=== PATIENT | female | born 1960 | race Caucasian/White ===

== ENCOUNTER → 2016-06-22 | Outpatient (CLI) | payer BC ==
[~2016-06-22] MED LIST: /MOXI40TA PO; /PANT40TA PO; ADVA115INH INH; ALBU17IN INH; ALBUTEROL NEBULIZER; BENI20TA5 PO; BISAC5TA PO; CARD180C4 PO; CEFT500T PO; CHLOR PO; CITA20TA2 PO; DUONSOL IN; HYDROCODONE PO; LASI20TA PO; LIVA4TAB PO; METF500T PO; MYLASSUD PO; NICO21DI26 EXT; PRED10TA2 PO; REGL10TA6 PO; SING4GRA PO; SINGULAIR PO; TYLE325T5 PO; [UNRECOGNIZED DRUG - OTHER] PO
--- NOTE | 2016-06-22 22:53 | REP ---
CHEST, TWO VIEWS: HISTORY: Wheezing. COMPARISON: 06/25/2014 Peribronchial cuffing is present. The heart is normal in size. The pulmonary vasculature is normal in appearance. The bony structure is intact. IMPRESSION: Findings consistent with asthma or bronchitis. Signed by Erick Wilson MD 06/23/2016 08:21 A
== END ==
LOC: M LRY 18:33
PROVIDERS: ATTEND Physician Assistant
DX: R06.2 Wheezing (principal)

== ENCOUNTER → 2016-07-19 | Outpatient (REF) | payer BC | LOC: M SFHCPLAZ 13:08 | PROVIDERS: ATTEND Nurse Practitioner Family | DX: L03.315 Cellulitis of perineum (principal) ==

== ENCOUNTER 2016-09-22 15:05 | Observation (INO) | payer BC ==
[~2016-09-22] VITALS: Ht 147.3 cm; Wt 77.9 kg
--- NOTE | 2016-09-22 16:00 | REP ---
CT Head without contrast HISTORY: Infarction COMPARISON: 06/26/2012 There is no intraparenchymal hemorrhage, acute infarct, mass or midline shift. The ventricular system is normal in appearance. There is no extra cerebral collection. There is no fracture. The visualized sinuses are clear. IMPRESSION: There is no intracranial lesion. Signed by Erick Wilson MD 09/22/2016 03:52 P
--- NOTE | 2016-09-22 16:09 | REP ---
PORTABLE CHEST: AP portable view of the chest is performed. There is no acute infiltrate or pulmonary edema. The cardiomediastinal silhouette is normal. There are degenerative changes of the spine. IMPRESSION: No acute pulmonary disease. Signed by Brett Osborne MD 09/22/2016 05:42 P
[2016-09-22 16:26] LABS: BASO % 0.5 % (0.0-1.0); EOS # 0.2 K/mm3 (0.0-0.50); LARGE UNSTAINED CELL # 0.1 K/mm3 (0.0-0.4); LARGE UNSTAINED CELL % 1.5 % (0.0-4.0); LYMPH # 2.5 K/mm3 (1.5-4.5); LYMPH % 29.4 % (24.0-44.0); MEAN CORPUSCULAR HEMOGLOBIN 30.2 pg (27.0-33.0); MEAN CORPUSCULAR HGB CONC 33.7 g/dl (32.0-36.5); MEAN CORPUSCULAR VOLUME 89.8 fl (80.0-96.0); MONO # 0.5 K/mm3 (0.0-0.8); MONO % 5.7 % (0.0-5.0); NEUTROPHILS # 4.8 K/mm3 (1.8-7.7); PLATELET COUNT, AUTOMATED 296 k/mm3 (150-450); RED CELL DISTRIBUTION WIDTH 14.1 % (11.5-14.5); WHITE BLOOD COUNT 8.1 K/mm3 (4.0-10.0)
[2016-09-22 16:33] LABS: INR 0.95
[2016-09-22] MEDS ORDERED: ACETAMINOPHEN TAB 650MG DOSE (2X325MG) PO ONE (16:45)
[2016-09-22 16:47] LABS: ANION GAP 4 MEQ/L (8-16); BLOOD UREA NITROGEN 9 MG/DL (7-18); CALCIUM LEVEL 8.5 MG/DL (8.5-10.1); CARBON DIOXIDE LEVEL 29 MEQ/L (21-32); CHLORIDE LEVEL 107 MEQ/L (98-107); CREATININE FOR GFR 0.89 MG/DL (0.55-1.02); GLOMERULAR FILTRATION RATE > 60.0 (>51); GLUCOSE, FASTING 77 MG/DL (70-105); MAGNESIUM LEVEL 2.1 MG/DL (1.8-2.4); POTASSIUM SERUM 3.4 MEQ/L (3.5-5.1); SODIUM LEVEL 140 MEQ/L (136-145)
[2016-09-22] MEDS ORDERED: METOPROLOL 5 MG/5 ML VIAL IV STA (17:26)
[2016-09-22] MEDS ORDERED: ASPIRIN 325 MG TAB PO ONE (17:30)
[2016-09-22] MEDS ORDERED: ACETAMINOPHEN TAB 650MG DOSE (2X325MG) PO PRN (17:30)
[2016-09-22] MEDS ORDERED: POTASSIUM CHLORIDE 10 MEQ SR TABLET PO ONE (17:30)
[2016-09-22] MEDS ORDERED: hydrALAZINE INJ 20 MG/ML VIAL IV ONE (17:30)
[2016-09-22] MEDS ORDERED: ONDANSETRON 4MG/2ML VIAL (J2405) IV PRN (17:30)
[2016-09-22] MEDS ORDERED: OLMESARTAN MEDOXOMIL 20 MG TAB (BENICAR) PO ONE (17:30)
[2016-09-22] MEDS ORDERED: SIMVASTATIN 40 MG TAB PO ONE (17:30)
[2016-09-22] MEDS ORDERED: hydrALAZINE INJ 20 MG/ML VIAL IV SCH (17:45)
[2016-09-22] MEDS ORDERED: SUCR1SS PO (18:42)
[2016-09-22] MEDS ORDERED: LASI20TA PO (18:42)
[2016-09-22] MEDS ORDERED: NEXI40CA PO (18:42)
[2016-09-22] MEDS ORDERED: BENI40TA3 PO (18:42)
[2016-09-22] MEDS ORDERED: CITA40TA4 PO (18:42)
[2016-09-22] MEDS ORDERED: FLON1SPR (18:42)
[2016-09-22] MEDS ORDERED: SIMV20TA2 PO (18:42)
[2016-09-22] MEDS ORDERED: SING10TA32 PO (18:42)
[2016-09-22] MEDS ORDERED: SULF500T2 PO (18:42)
[2016-09-22] MEDS ORDERED: ALBU17IN INH (18:42)
[2016-09-22] MEDS ORDERED: HYDR12CA PO (18:42)
[2016-09-22 20:05] VITALS: BP 160/80
[2016-09-22] MEDS: LABETALOL 100 MG TAB PO SCH (20:31)
[2016-09-22] MEDS ORDERED: IPRATROPIUM 0.5MG/ALBUTEROL 2.5MG INH SOL UD 3ML (DUONEB)(J7620) NEB PRN (21:00)
[2016-09-22] MEDS ORDERED: FUROSEMIDE 20 MG TAB PO PRN (21:00)
[2016-09-22] MEDS ORDERED: NICOTINE POLACRILEX 2 MG GUM PO PRN (21:00)
--- NOTE | 2016-09-22 21:50 | ECGEPIP ---
Stationary ECG Study [facility] [place] - ED Test Date: 2016-09-22 Pat Name: DELMA DAWN Department: Room: - Gender: F Slip Laster: rn : 1960 Requested By: CHAY Perez Order Number: [id number] Reading MD: Roseanne Benavides Measurements Intervals Saline Rate: 82 P: 32 PA: 191 QRS: -83 QRSD: 102 T: 32 QT: 374 QTc: 438 Interpretive Statements SINUS RHYTHM LEFT ANTERIOR FASCICULAR BLOCK POSSIBLE ANTERIOR MYOCARDIAL INFARCTION, OF INDETERMINATE AGE POSSIBLE INFERIOR MYOCARDIAL INFARCTION, OF INDETERMINATE AGE Electronically Signed On 09-22-2016 21:49:50 EDT by Roseanne Benavides
[2016-09-22 22:32] VITALS: BP 180/87
[2016-09-22] MEDS ORDERED: amLODIPine 5 MG TAB PO ONE (23:00)
[2016-09-22 23:20] VITALS: BP 162/80
[2016-09-23 02:46] VITALS: BP 130/70
[2016-09-23 05:15] VITALS: BP 142/82
[2016-09-23 05:39] LABS: BASO % 0.4 % (0.0-1.0); EOS # 0.3 K/mm3 (0.0-0.50); EOS % 3.3 % (0.0-3.0); LARGE UNSTAINED CELL # 0.1 K/mm3 (0.0-0.4); LARGE UNSTAINED CELL % 1.3 % (0.0-4.0); LYMPH # 3.2 K/mm3 (1.5-4.5); LYMPH % 33.7 % (24.0-44.0); MEAN CORPUSCULAR HEMOGLOBIN 30.5 pg (27.0-33.0); MEAN CORPUSCULAR HGB CONC 34.2 g/dl (32.0-36.5); MEAN CORPUSCULAR VOLUME 89.3 fl (80.0-96.0); MONO # 0.8 K/mm3 (0.0-0.8); MONO % 8.9 % (0.0-5.0); NEUTROPHILS # 4.8 K/mm3 (1.8-7.7); NEUTROPHILS % 52.2 % (36.0-66.0); PLATELET COUNT, AUTOMATED 279 k/mm3 (150-450); RED CELL DISTRIBUTION WIDTH 14.2 % (11.5-14.5); WHITE BLOOD COUNT 9.1 K/mm3 (4.0-10.0)
[2016-09-23 06:09] LABS: ANION GAP 8 MEQ/L (8-16); BLOOD UREA NITROGEN 11 MG/DL (7-18); CALCIUM LEVEL 8.2 MG/DL (8.5-10.1); CARBON DIOXIDE LEVEL 25 MEQ/L (21-32); CHLORIDE LEVEL 108 MEQ/L (98-107); CREATININE FOR GFR 0.89 MG/DL (0.55-1.02); GLOMERULAR FILTRATION RATE > 60.0 (>51); GLUCOSE, FASTING 104 MG/DL (70-105); POTASSIUM SERUM 3.8 MEQ/L (3.5-5.1); SODIUM LEVEL 141 MEQ/L (136-145)
--- NOTE | 2016-09-23 07:43 | HPE ---
DATE OF ADMISSION: 09/22/2016 INPATIENT HOSPITAL ATTENDING: Dr. Esdras Abbott. PRIMARY CARE PHYSICIAN: Dr. Henry Ko CHIEF COMPLAINT: Right sided facial tingling. HISTORY OF PRESENT ILLNESS: 56-year-old female with history of hypertension, noncompliant with salt intake, hypercholesterolemia, asthma, presents to the emergency room with two day history of right facial tingling noted last night at work at 9:30 p.m. The patient has persistent facial tingling and slight numbness as she had gone to bed. It improved slightly when she woke up this morning. She noted her blood pressure was elevated at 180/101 at home. She called her physician who had recently increased her Benicar from 20 daily to 40 dad. The patient denied any chest pain, pressure or tightness, headache or changes in vision. She had an episode of nausea without vomiting, otherwise no fever, chills or shortness of breath. Due to the persistent facial tingling she presented to the emergency room for further evaluation. She denied any swallowing difficulties, dysphagia, odynophagia, facial asymmetry, choking spells at home. She had not taken any medications for this and no prior history of neurologic disorder. She also complains of diarrhea for the past ten days, four times daily , loose, watery stools. No blood, but with a significant amount of mucus. No weight changes. She had a prior colonoscopy less than five years ago in [place]. She was found to have diverticulosis. She had a prior history of Clostridium difficile (C. difficile) about four years ago. She currently denies any bright blood per rectum, melena, no upper or lower extremity weakness aside from numbness of the right face. The patient has not experienced any other neurological changes. She currently denies any chest pain or pressure, dyspnea or lightheadedness. She is ambulating well without much difficulty. In the emergency room (ER) CT of the head was unremarkable and shows no acute infarct. No intracranial lesion. Laboratory data was only significant for slightly low potassium of 3.4. Blood pressure was elevated at 195/93 in the ER. The hospitalist service was called for admission for possible transient ischemic attack (TIA) and hypertensive urgency. PAST MEDICAL HISTORY: 1. Hypertension. 2. Hypercholesterolemia. 3. Chronic pulmonary obstructive disease (COPD). 4. Asthma. 5. Diverticular disease. 6. Chronic diarrhea. 7. Osteoarthritis. 8. History of angina, stress test Dr. Layton 2014. 9. Depression. 10. Microscopic colitis. 11. Anxiety/depression. Used to be treated at behavioral health clinic. 12. Thoracic back pain. 13. Reflux. PAST SURGICAL HISTORY: 1. Ovarian cystectomy with appendectomy 02/23/1978. 2. Thoracic discectomy 08/17/1989. 3. Cervical laminectomy 08/17/2004. 4. (C) section 08/17/1988. ALLERGIES: CLINDAMYCIN, CYCLOBENZAPRINE, ERYTHROMYCIN, SERTRALINE, MELOXICAM. HOME MEDICATIONS: - Benicar 40 mg daily - Reglan 10 mg nightly - pitavastatin 4 mg daily - Singulair 10 daily - albuterol two puffs every four as needed - citalopram 20 daily - DuoNeb every four as needed - Protonix 40 daily - Tylenol 650 every four has needed SOCIAL HISTORY: She smokes a pack a day for the past 40 years. She works at [employer]. No alcohol use, no health care proxy. FULL CODE. FAMILY HISTORY: Mother age 72, coronary artery disease (CAD), myocardial infarction (CT) times three, esophageal cancer. Father is still alive at 77 and with hypertension late onset, type 2 diabetes. Father living with asthma, hypertension, diabetes, lymphedema, history of prostate cancer. Mother age 72, in 2012 with rheumatoid arthritis, esophageal cancer (CA), coronary artery disease, hypertension, history of myocardial infarction (CT). One brother and one sister and one child. REVIEW OF SYSTEMS: 12-point system negative aside from positive findings in history of presenting illness, vertical, horizontal. Some dysmetria on [id number] testing on the right. No pronator drift. Motor function is 5/5 times four extremities. The patient has decreased sensation on the right face. Cloth Classer is normal 5/5. Deep tendon reflexes (DTRs) are intact, 2+ brachial and radial. Ankle reflex negative Babinski bilaterally. PHYSICAL EXAMINATION: HEENT: Tongue is midline, no jugular venous distention, thyromegaly or cervical lymphadenopathy. HEART: S1, S2. Sinus rhythm. No murmurs, rubs, gallops. LUNGS: Clear to auscultation, no wheezing, rales or rhonchi. ABDOMEN: Soft, nontender, nondistended, positive bowel sounds. EXTREMITIES: No pitting edema. EKG shows sinus rhythm, ventricular rate of 82, left anterior fascicular block. Possible inferior CT of indeterminate age, abnormal EKG. LABORATORY DATA: White count 8.1, hemoglobin 14, hematocrit 41, platelet count 296. Sodium 140, potassium 3.4, chloride 107, bicarbonate 29, BUN 9, creatinine 0.89, glucose 77, calcium 8.5, magnesium 2.1, total CK 144, MB fraction 1.3, troponin less than 0.02, TSH 2.03. CT of the head, no acute intracranial lesion. Chest x-ray, no acute cardiopulmonary disease. MR of the brain is pending. ASSESSMENT AND PLAN: This is a 56-year-old female, active smoking, with over a 40-pack year history of smoking, hypertension, hyperlipidemia, depression, asthma, chronic pulmonary obstructive disease (COPD) presenting to the emergency room with complaints of right facial tingling. The patient will be admitted for observation and assigned to Dr. Esdras Abbott with the following issues: 1. Hypertensive urgency. The patient will be given Labetalol 100 twice a day, resumed on her home dose of Benicar 40 daily for better blood pressure control. 2. Right facial tingling. Possible transient ischemic attack (TIA). Rule out cerebral vascular accident (CVA). Neurologic checks every four hours, telemetry monitoring. Rule out arrhythmia. MRI of the brain, if positive for CVA will consult neurology and obtain an echocardiogram, Dopplers of the neck to rule out carotid stenosis. Encourage tobacco cessation. Start on aspirin 81 daily, tobacco cessation counseling. Zocor, check lipid profile in the morning. 3. Active smoking 40 pack year history with COPD. Nebulizer treatments as needed. 4. Tobacco cessation counseling. Nicotine patch. 5. Depression. Continue Celexa. 6. History of asthma. Continue Singulair and nebulizer treatments. 7. Deep venous thrombosis (DVT) prophylaxis. Compression stockings. Edited: 09/23/2016 0742 louie DAVIDSON
[2016-09-23 08:00] VITALS: BP 158/79
--- NOTE | 2016-09-23 08:43 | REP ---
MR BRAIN WITHOUT CONTRAST: HISTORY: Right facial paresthesia. COMPARISON: 02/09/2008 Scattered punctate areas of increased signal intensity on T2-weighted images are present in the periventricular and subcortical white matter. This represents small vessel ischemic disease. There is no intraparenchymal hemorrhage, infarct, mass, or midline shift. The ventricular system is normal in appearance. There is no extracerebral collection. Minimal mucosal thickening is present in the right ethmoid sinus. IMPRESSION: Minimal small vessel ischemic disease. Signed by Erick Wilson MD 09/23/2016 08:47 A
[2016-09-23] MEDS ORDERED: PANTOPRAZOLE 40MG TAB (PROTONIX) PO SCH (09:00)
[2016-09-23] MEDS ORDERED: ASPIRIN 81 MG ENTERIC TAB PO SCH (09:00)
[2016-09-23] MEDS ORDERED: NICOTINE 7 MG/24 HR TRANSDERMAL TD SCH (09:00)
[2016-09-23] MEDS ORDERED: OLMESARTAN MEDOXOMIL 20 MG TAB (BENICAR) PO SCH (09:00)
[2016-09-23] MEDS ORDERED: CitaloPRAM (CeleXA) 20 MG TAB PO SCH (09:00)
[2016-09-23] MEDS ORDERED: ENOXAPARIN 40 MG/0.4 ML SYRINGE (J1650) SC SCH (09:00)
[2016-09-23 09:39] VITALS: BP 158/79
[2016-09-23] MEDS: LABETALOL 100 MG TAB PO SCH (09:39)
[2016-09-23] MEDS ORDERED: ASPI81TAEC PO (09:40)
[2016-09-23] MEDS ORDERED: LABE10TAB PO (09:40)
[2016-09-23] MEDS ORDERED: NICO7PA TD (09:40)
[2016-09-23] MEDS ORDERED: HYDR25TAB PO (09:41)
--- NOTE | 2016-09-23 10:34 | DSES ---
DATE OF ADMISSION: 09/23/2016 DATE OF DISCHARGE: 09/23/2016 DISCHARGE DIAGNOSIS: Transient ischemic attack (TIA). SECONDARY DIAGNOSES: Hypertensive urgency. Chronic obstructive pulmonary disease (COPD). Tobacco abuse. Depression. Anxiety. Gastroesophageal reflux disease (GERD). HOSPITAL COURSE: The patient is a 56-year-old female who presented to the hospital with elevated blood pressure and associated right sided paresthesias. She was admitted to the progressive care unit with concern for potential CVA. An MRI was completed which did not reveal any acute CVA. Her blood pressure was controlled with p.o. medications and her symptoms did resolve at the same time. At the present time, the patient is completely asymptomatic. She admitted to having stressors increased in her life lately. She has also admitted that she has been smoking more than usual. She tells me that she is compliant with her medications, but noncompliant with a low salt diet, and that she takes as needed Lasix for lower extremity edema felt to be related to her high salt diet. At the present time, the patient tells me she feels well, has no complaints and would like to go home. She has no paresthesias, weakness, numbness or tingling. No chest pain, shortness of breath, fevers, chills, nausea, vomiting. At the present time she is actually denying diarrhea. OBJECTIVE: VITAL SIGNS: Temperature 97.4, pulse 66, respiratory rate 18, blood pressure 158/79, oxygen saturation 99% on room air. GENERAL: She is a pleasant female lying in bed comfortably. She is in no distress. HEENT: Face is symmetric. Cranial nerves II through XII are grossly intact. She has moist mucous membranes. No elevation of CVP. CARDIOVASCULAR EXAM: S1 and S2 regular. RESPIRATORY EXAM: Clear. ABDOMINAL EXAM: Obese. Bowel sounds present. The abdomen is soft. EXTREMITIES: No clubbing, cyanosis, or edema. NEUROLOGICAL EXAM: Sensory and motor intact. Gait is intact. LABORATORY STUDIES: WBC 9.1, hemoglobin 13.4, platelet count is 279. Chemistry panel: Sodium 141, potassium 3.8, chloride 108, bicarb 25, BUN 11, creatinine 0.8. Three sets of cardiac enzymes are negative. TSH is within normal limits. INR is 0.9. MRI of the brain revealed minimal small vessel ischemic disease. She had a chest x-ray that revealed no acute cardiopulmonary process. She had a CT scan of the head which revealed no intracranial lesion. ASSESSMENT/PLAN: This is a 56-year-old female with hypertensive urgency. PROBLEMS: 1. Hypertensive urgency and possible TIA. The patient's blood pressure was significantly elevated at the time of her presentation with her systolic greater than 190. At the time, she had noticed that she had right sided facial numbness and tingling, which coincided with her elevated blood pressure. In the emergency room she was given her Benicar as well as labetalol was added to her regimen, 100 mg twice a day. This did bring her blood pressure down quite well and she did have complete resolution of her problems. At this time, the patient is being discharged on Benicar 40 mg by mouth daily. Her home hydrochlorothiazide has been titrated from 12.5 mg to 25 mg. 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 I have also advised her to start an exercise regimen. She will be provided with a nicotine patch. I have provided her a prescription for labetalol and should her blood pressure remain elevated with systolic greater than 150, she should begin taking this medication as well and monitor her blood pressure at least twice a day and keeping her readings. She is advised to followup with her primary care physician within seven days. If her symptoms recur in the setting where her blood pressure is not elevated, could consider an outpatient neurology referral. The patient was to continue taking her Zocor. She was also to take a baby aspirin daily. 2. COPD. Continue with inhalers. Tobacco cessation advised. 3. Tobacco use. The patient will be discharged with a nicotine patches. 4. Depression. Continue with Celexa. 5. High salt diet. The patient has been advised to have a 2 gram sodium diet and that having a high salt diet will likely increase her blood pressure significantly. She normally takes Lasix 20 mg as needed leg swelling for this. DISPOSITION: The patient is being discharged home. She is at her functional baseline in terms of activities of daily living. She has been cleared by physical therapy. She is to followup with her primary care physician in seven days. Her activity is as prior to admission. Her diet is 2 gram sodium. She is to return to the ER if her symptoms worsen. She is to use labetalol only if her home blood pressure readings are greater than a systolic of 150. She is to check her blood pressure, and also, if her symptoms were to occur regularly with her home monitor. DISCHARGE MEDICATIONS: - aspirin 81 mg daily - hydrochlorothiazide 25 mg daily - labetalol 100 mg by mouth twice a day as directed - nicotine one patch transdermally daily - Ventolin HFA two puffs four times a day as needed for shortness of breath - citalopram 40 mg daily - Nexium 40 mg daily - Flonase two sprays nasally as needed for allergies - Lasix 20 mg as needed for leg swelling - Singulair 10 mg at bedtime - olmesartan 40 mg daily - simvastatin 20 mg at bedtime - Carafate 10 mL by mouth twice a day - sulfasalazine 500 mg every 6 hours Greater than 30 minutes spent organizing disposition.
[2016-09-23] MEDS ORDERED: SIMVASTATIN 40 MG TAB PO SCH (21:00)
[2016-09-23] MEDS ORDERED: SIMVASTATIN 20 MG TAB PO SCH (21:00)
[2016-09-23] MEDS ORDERED: MONTELUKAST 10 MG TAB PO SCH (21:00)
== END 2016-09-23 10:55 | disposition home or self-care (01) ==
LOC: M ED 16:19 → M ED INP 17:28 → M PCU 20:03 → OBSVTOIN 09-23 08:21 → INTOOBSV 09-23 08:21
PROVIDERS: ADMIT General Practice; ATTEND Internal Medicine
DX: G45.9 Transient cerebral ischemic attack, unspecified (principal); I16.0 Hypertensive urgency; J44.9 Chronic obstructive pulmonary disease, unspecified; F17.210 Nicotine dependence, cigarettes, uncomplicated; F32.9 Major depressive disorder, single episode, unspecified; F41.9 Anxiety disorder, unspecified; K21.9 Gastro-esophageal reflux disease without esophagitis; Z79.82 Long term (current) use of aspirin; Z79.899 Other long term (current) drug therapy; E78.00 Pure hypercholesterolemia, unspecified; Z88.1 Allergy status to other antibiotic agents; Z88.8 Allergy status to other drugs, medicaments and biological substances

== ENCOUNTER 2016-11-25 18:09 | Emergency (ER) | payer OTHER, BC ==
[~2016-11-25] VITALS: Ht 147.3 cm; Wt 78.5 kg
[~2016-11-25 18:09] MED LIST changes: +ASPI81TAEC PO; +BENI40TA3 PO; +CITA40TA4 PO; +FLON1SPR; +HYDR12CA PO; +HYDR25TAB PO; +LABE10TAB PO; +NEXI40CA PO; +NICO7PA TD; +SIMV20TA2 PO; +SING10TA32 PO; +SUCR1SS PO; +SULF500T2 PO
[2016-11-25] MEDS ORDERED: BENI40TA3 PO (18:20)
[2016-11-25] MEDS ORDERED: BREO1INH3 (18:20)
[2016-11-25 20:35] VITALS: BP 168/83
== END 2016-11-25 20:37 | disposition home or self-care (01) ==
LOC: M ED 19:10
DX: S60.511A Abrasion of right hand, initial encounter (principal); S60.512A Abrasion of left hand, initial encounter; S00.83XA Contusion of other part of head, initial encounter; W18.09XA Striking against other object with subsequent fall, initial encounter; Y92.238 Other place in hospital as the place of occurrence of the external cause; Y93.01 Activity, walking, marching and hiking; Y99.0 Civilian activity done for income or pay; I10 Essential (primary) hypertension; E78.00 Pure hypercholesterolemia, unspecified; F32.9 Major depressive disorder, single episode, unspecified; K57.90 Diverticulosis of intestine, part unspecified, without perforation or abscess without bleeding; F17.200 Nicotine dependence, unspecified, uncomplicated; Z79.82 Long term (current) use of aspirin; Z79.899 Other long term (current) drug therapy; Z88.1 Allergy status to other antibiotic agents; Z88.8 Allergy status to other drugs, medicaments and biological substances

== ENCOUNTER → 2016-12-01 | Outpatient (CLI) | payer OTHER, BC ==
[~2016-12-01] MED LIST changes: +BREO1INH3
--- NOTE | 2016-12-02 04:50 | REP ---
Clinical: Pain. Technique: AP, lateral, bilateral oblique views of the right foot. Findings: Moderate age-related degenerative changes primarily involving the metatarsophalangeal and interphalangeal joints noted including subchondral sclerosis, joint space narrowing, and scattered marginal spurring. No acute fracture or dislocation. Surrounding soft tissues unremarkable. Impression: Moderate arthritic degenerative changes. Signed by Andrew Leon MD 12/02/2016 04:41 A
== END ==
LOC: M LRY 14:16
PROVIDERS: ATTEND Internal Medicine
DX: M19.071 Primary osteoarthritis, right ankle and foot (principal)

== ENCOUNTER → 2017-02-08 | Outpatient (REF) | payer BC ==
[~2017-02-08] MED LIST changes: +BENI40TA26 PO; -BENI40TA3 PO
[2017-02-08 11:54] LABS: ALBUMIN 3.9 GM/DL (3.2-5.2); ALBUMIN/GLOBULIN RATIO 1.18 (1.00-1.93); ALKALINE PHOSPHATASE 101 U/L (45-117); ALT/SGPT 21 U/L (12-78); ANION GAP 6 MEQ/L (8-16); AST/SGOT 13 U/L (15-37); BILIRUBIN,TOTAL 0.4 MG/DL (0.2-1.0); BLOOD UREA NITROGEN 17 MG/DL (7-18); CALCIUM LEVEL 9.1 MG/DL (8.5-10.1); CARBON DIOXIDE LEVEL 29 MEQ/L (21-32); CHLORIDE LEVEL 103 MEQ/L (98-107); CHOLESTEROL LEVEL 243 MG/DL (<200); GLOMERULAR FILTRATION RATE > 60.0 (>51); GLUCOSE, FASTING 119 MG/DL (70-105); MAGNESIUM LEVEL 2.2 MG/DL (1.8-2.4); POTASSIUM SERUM 4.8 MEQ/L (3.5-5.1); SODIUM LEVEL 138 MEQ/L (136-145); TOTAL PROTEIN 7.2 GM/DL (6.4-8.2); TRIGLYCERIDES LEVEL 99 MG/DL (<150)
== END ==
LOC: M SFHCPLAZ 09:45
PROVIDERS: ATTEND Internal Medicine
DX: I10 Essential (primary) hypertension (principal); E78.00 Pure hypercholesterolemia, unspecified

== ENCOUNTER → 2017-02-08 | Outpatient (CLI) | payer BC ==
--- NOTE | 2017-02-08 14:21 | REP ---
LUMBAR SPINE SERIES: FIVE VIEWS. COMPARISON STUDY: 10/10/2008 FINDINGS: Lumbar vertebral body heights are preserved, and alignment is normal. There is degenerative disc disease diffusely. This is more pronounced than on the 2008 prior study. Disc space narrowing is most pronounced at L3-4 and L4-5 where there is spurring and sclerosis. There is osteoarthritic facet hypertrophy and sclerosis bilaterally at L4-5 and L5-S1 as well. Pedicles and posterior elements are intact. There is no evidence of spondylolysis or spondylolisthesis. Vascular calcification is noted. Psoas margins are symmetric. Sacrum and SI joints are intact. IMPRESSION: Degenerative disc and osteoarthritic facet changes most pronounced at L4-5, L5-S1, and L3-4. No fracture or acute abnormality is seen. Signed by Teofilo Villafana MD 02/08/2017 02:59 P
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
== END ==
LOC: M SMT 13:02
PROVIDERS: ATTEND Nurse Practitioner Adult Health
DX: M54.5 Low back pain (principal); M50.31 Other cervical disc degeneration, high cervical region; M50.321 Other cervical disc degeneration at C4-C5 level; M50.323 Other cervical disc degeneration at C6-C7 level; M12.88 Other specific arthropathies, not elsewhere classified, other specified site; Z98.1 Arthrodesis status

== ENCOUNTER → 2017-02-25 | Outpatient (CLI) | payer BC ==
--- NOTE | 2017-02-25 11:12 | REP ---
MR LUMBAR SPINE WITHOUT CONTRAST: HISTORY: Back pain. COMPARISON: 01/07/2012 Decreased signal intensity on T2-weighted images is present in the lumbar intervertebral discs. The disc are decreased in height. These findings are consistent with disc degeneration. There is no disc bulge or herniation at the L1-2 and L2-3 levels. The nerves exit the neural foramina without compression. A diffuse disc bulge and small left paracentral and intraforaminal disc protrusion are present at the L3-4 level. There is hypertrophy of the ligamentum flava and posterior articulating facets. These findings produce minimal central canal stenosis. There is compression of the right L3 nerve in the neural foramen. The left L3 nerves exits the neural foramen without compression. A diffuse disc bulge is present at the L4-5 level. There is hypertrophy of the ligamenta flava and posterior articulating facets. These findings produce mild central canal stenosis. The L4 nerves exit the neural foramina without compression. A diffuse disc bulge is present at the L5-S1 level. There is minimal compression of the thecal sac. There is hypertrophy of the posterior articulating facets. The L5 nerves exit the neural foramina without compression. A syrinx is present in the lower thoracic spinal cord. This appears unchanged compared to the previous study. The conus medullaris terminates at the level of the L2-3 intervertebral disc. Normal signal intensity is present in the lumbar vetebral bodies. IMPRESSION: 1. Minimal central canal stenosis at the L3-4 level secondary to disc bulge, disc protrusion, ligamentous and facet hypertrophy. 2. Mild central canal stenosis at the L4-5 level secondary to disc bulge, ligamentous and facet hypertrophy.3. Diffuse disc bulge at the L5 S1 level with minimal thecal sac compression. Signed by Erick Wilson MD 02/25/2017 08:54 A
== END ==
LOC: M RAD 07:20
PROVIDERS: ATTEND Nurse Practitioner Adult Health
DX: M54.5 Low back pain (principal)

== ENCOUNTER 2017-03-16 14:00 | Outpatient (RCR) | payer BC | END 2017-03-19 | LOC: M PT 14:00 | PROVIDERS: ATTEND Orthopaedic Surgery | DX: Z51.89 Encounter for other specified aftercare (principal); M54.5 Low back pain ==

== ENCOUNTER → 2017-07-11 | Outpatient (REF) | payer BC | LOC: M SFHCPLAZ 17:22 | DX: R35.0 Frequency of micturition (principal) ==

== ENCOUNTER → 2017-07-11 | Outpatient (REF) | payer BC ==
[2017-07-11 19:29] LABS: ESTIMATED AVERAGE GLUCOSE 143 MG/DL (60-110); HEMOGLOBIN A1c 6.6 %
[2017-07-11 20:04] LABS: ALBUMIN 4.4 GM/DL (3.2-5.2); ALBUMIN/GLOBULIN RATIO 1.33 (1.00-1.93); ALKALINE PHOSPHATASE 110 U/L (45-117); ALT/SGPT 23 U/L (12-78); ANION GAP 6 MEQ/L (8-16); AST/SGOT 15 U/L (7-37); BILIRUBIN,TOTAL 0.3 MG/DL (0.2-1.0); BLOOD UREA NITROGEN 14 MG/DL (7-18); CALCIUM LEVEL 9.5 MG/DL (8.5-10.1); CARBON DIOXIDE LEVEL 31 MEQ/L (21-32); CHLORIDE LEVEL 101 MEQ/L (98-107); CPK CREATINE PHOSPHOKINASE 159 U/L (26-192); CREATININE FOR GFR 1.01 MG/DL (0.55-1.02); GLOMERULAR FILTRATION RATE > 60.0 (>51); GLUCOSE, FASTING 87 MG/DL (70-100); POTASSIUM SERUM 4.4 MEQ/L (3.5-5.1); SODIUM LEVEL 138 MEQ/L (136-145); TOTAL PROTEIN 7.7 GM/DL (6.4-8.2)
== END ==
LOC: M SFHCPLAZ 14:55
DX: R73.9 Hyperglycemia, unspecified (principal); M79.1 Myalgia

== ENCOUNTER → 2017-07-29 | Outpatient (REF) | payer BC ==
[2017-07-29 22:11] LABS: INFLUENZA A AMPLIFICATION NEGATIVE (NEGATIVE); INFLUENZA B AMPLIFICATION NEGATIVE (NEGATIVE)
== END ==
LOC: M SFHCLERA 19:30
DX: R53.81 Other malaise (principal)
CPT/HCPCS: 87502

== ENCOUNTER → 2017-12-28 | Outpatient (REF) | payer BC | LOC: M SFHCPLAZ 17:57 | DX: Z12.4 Encounter for screening for malignant neoplasm of cervix (principal) ==

== ENCOUNTER 2018-03-15 13:01 | Inpatient (IN) | payer BC ==
[2018-03-15 14:07] LABS: BASO % 0.3 % (0.0-1.0); EOS # 0.3 10^3/uL (0.0-0.50); EOS % 3.4 % (0.0-3.0); HEMATOCRIT 39.5 % (36.0-47.0); HEMOGLOBIN 13.4 g/dl (12.0-15.5); IMMATURE GRANULOCYTE % 0.3 % (0-3.0); LYMPH % 30.6 % (24.0-44.0); MEAN CORPUSCULAR HEMOGLOBIN 30.9 pg (27.0-33.0); MEAN CORPUSCULAR HGB CONC 33.9 g/dl (32.0-36.5); MONO # 0.9 10^3/uL (0.0-0.8); MONO % 8.7 % (0.0-5.0); NEUTROPHILS # 5.6 10^3/uL (1.8-7.7); NEUTROPHILS % 56.7 % (36.0-66.0); RED BLOOD COUNT 4.34 10^6/uL (4.00-5.40); RED CELL DISTRIBUTION WIDTH 13.4 % (11.5-14.5); WHITE BLOOD COUNT 9.9 10^3/uL (4.0-10.0)
[2018-03-15 14:17] LABS: INR 0.91; PARTIAL THROMBOPLASTIN TIME 25.7 SECONDS (25.4-37.6); PROTHROMBIN TIME 12.3 SECONDS (12.1-14.4)
[2018-03-15 14:27] LABS: PLATELET COUNT, AUTOMATED 234 10^3/uL (150-450); POS COUNT POS FLAG
[2018-03-15 14:31] LABS: ALBUMIN 3.7 GM/DL (3.2-5.2); ALBUMIN/GLOBULIN RATIO 1.28 (1.00-1.93); ALKALINE PHOSPHATASE 78 U/L (45-117); ALT/SGPT 23 U/L (12-78); ANION GAP 10 MEQ/L (8-16); AST/SGOT 18 U/L (7-37); BILIRUBIN,DIRECT < 0.1 MG/DL (0.0-0.2); BILIRUBIN,TOTAL 0.3 MG/DL (0.2-1.0); BLOOD UREA NITROGEN 15 MG/DL (7-18); CALCIUM LEVEL 8.8 MG/DL (8.5-10.1); CARBON DIOXIDE LEVEL 22 MEQ/L (21-32); CHLORIDE LEVEL 107 MEQ/L (98-107); CPK CREATINE PHOSPHOKINASE 160 U/L (26-192); CREATININE FOR GFR 0.81 MG/DL (0.55-1.30); GLOMERULAR FILTRATION RATE > 60.0 (>51); GLUCOSE, FASTING 98 MG/DL (70-100); MB/CK RELATIVE INDEX 0.94 (< OR =4); POTASSIUM SERUM 3.9 MEQ/L (3.5-5.1); SODIUM LEVEL 139 MEQ/L (136-145); TOTAL PROTEIN 6.6 GM/DL (6.4-8.2); TROPONIN I < 0.02 NG/ML (< 0.10)
[2018-03-15] MEDS: ONDANSETRON 4MG/2ML VIAL (J2405) IV (14:37)
[2018-03-15] MEDS: MORPHINE 2 MG/ML 1ML SYRINGE (J2270) IV ×2 (14:38→17:33)
[2018-03-15] MEDS: VALPROATE SOD INJ 1,000 MG in D5W 50 ML IV (17:51)
[2018-03-15 20:06] LABS: FREE THYROXINE INDEX 2.7 % (1.3-4.8); T UPTAKE 35 % (30-39); THYROXINE (T4) 7.8 UG/DL (4.5-12.0)
[2018-03-15] MEDS: QUEtiapine FUMARATE 25 MG TAB PO ×2 (21:00→22:48)
[2018-03-15] MEDS: SENOKOT S TAB PO (21:00)
[2018-03-15 21:21] LABS: MAGNESIUM LEVEL 1.9 MG/DL (1.8-2.4)
[2018-03-15] MEDS: MONTELUKAST 10 MG TAB PO (22:48)
[2018-03-15] MEDS: SIMVASTATIN 20 MG TAB PO (22:48)
[2018-03-15] MEDS: LABETALOL 100 MG TAB PO (22:52)
[2018-03-15] MEDS: HEPARIN SOD (PORCINE) 5000 UNITS/ML VIAL SC (22:53)
[2018-03-15] MEDS: MAG SULF 1GM/100ML (MAG RUN) 1 GM in APPROPRIATE DILUENT 1 EA IV (22:53)
[2018-03-15] MEDS: NICOTINE 21MG/24HR 1 EA TRANSDERMAL TD (22:54)
[2018-03-15 23:42] LABS: CPK CREATINE PHOSPHOKINASE 131 U/L (26-192); MB/CK RELATIVE INDEX 0.99 (< OR =4); TROPONIN I < 0.02 NG/ML (< 0.10)
[2018-03-16 06:13] LABS: HEMOGLOBIN 13.4 g/dl (12.0-15.5); MEAN CORPUSCULAR HEMOGLOBIN 30.9 pg (27.0-33.0); MEAN CORPUSCULAR HGB CONC 33.5 g/dl (32.0-36.5); MEAN CORPUSCULAR VOLUME 92.2 fl (80.0-96.0); PLATELET COUNT, AUTOMATED 280 10^3/uL (150-450); RED BLOOD COUNT 4.34 10^6/uL (4.00-5.40); RED CELL DISTRIBUTION WIDTH 13.5 % (11.5-14.5); WHITE BLOOD COUNT 6.7 10^3/uL (4.0-10.0)
[2018-03-16 06:34] LABS: ANION GAP 8 MEQ/L (8-16); BLOOD UREA NITROGEN 14 MG/DL (7-18); CALCIUM LEVEL 8.5 MG/DL (8.5-10.1); CARBON DIOXIDE LEVEL 27 MEQ/L (21-32); CHLORIDE LEVEL 107 MEQ/L (98-107); CHOLESTEROL LEVEL 146 MG/DL (<200); CHOLESTEROL RISK RATIO 3.743 (<5); CPK CREATINE PHOSPHOKINASE 116 U/L (26-192); CREATININE FOR GFR 0.97 MG/DL (0.55-1.30); GLOMERULAR FILTRATION RATE > 60.0 (>51); GLUCOSE, FASTING 96 MG/DL (70-100); HDL CHOLESTEROL 39 MG/DL (>40); LDL CHOLESTEROL 85 MG/DL (<100); MAGNESIUM LEVEL 2.4 MG/DL (1.8-2.4); MB/CK RELATIVE INDEX 0.95 (< OR =4); NON-HDL-C 107 MG/DL; POTASSIUM SERUM 4.4 MEQ/L (3.5-5.1); SODIUM LEVEL 142 MEQ/L (136-145); TRIGLYCERIDES LEVEL 110 MG/DL (<150); TROPONIN I < 0.02 NG/ML (< 0.10)
[2018-03-16] MEDS: OLMESARTAN MEDOXOMIL 20 MG TAB (BENICAR) PO (08:36)
[2018-03-16] MEDS: ACETAMINOPHEN TAB 650MG DOSE (2X325MG) PO ×3 (08:36→20:35)
[2018-03-16] MEDS: ASPIRIN 81 MG ENTERIC TAB PO (08:37)
[2018-03-16] MEDS: CitaloPRAM (CeleXA) 20 MG TAB PO (08:37)
[2018-03-16] MEDS: LABETALOL 100 MG TAB PO ×2 (08:37→20:34)
[2018-03-16] MEDS: HEPARIN SOD (PORCINE) 5000 UNITS/ML VIAL SC ×2 (08:38→20:35)
[2018-03-16] MEDS: SENOKOT S TAB PO ×2 (08:38→20:36)
[2018-03-16] MEDS: ONDANSETRON 4MG/2ML VIAL (J2405) IV (11:24)
[2018-03-16] MEDS: LOPERAMIDE 2 MG CAP PO ×3 (13:13→16:37)
[2018-03-16] MEDS: PINK BISMUTH SUSP 524MG/30ML ORAL SYRINGE PO (16:37)
[2018-03-16] MEDS: MONTELUKAST 10 MG TAB PO (20:34)
[2018-03-16] MEDS: QUEtiapine FUMARATE 25 MG TAB PO (20:34)
[2018-03-16] MEDS: NICOTINE 21MG/24HR 1 EA TRANSDERMAL TD (20:35)
[2018-03-17 06:55] LABS: HEMATOCRIT 40.6 % (36.0-47.0); HEMOGLOBIN 13.4 g/dl (12.0-15.5); MEAN CORPUSCULAR HEMOGLOBIN 30.6 pg (27.0-33.0); MEAN CORPUSCULAR VOLUME 92.7 fl (80.0-96.0); PLATELET COUNT, AUTOMATED 294 10^3/uL (150-450); RED BLOOD COUNT 4.38 10^6/uL (4.00-5.40); RED CELL DISTRIBUTION WIDTH 13.4 % (11.5-14.5); WHITE BLOOD COUNT 8.2 10^3/uL (4.0-10.0)
[2018-03-17 07:16] LABS: ANION GAP 7 MEQ/L (8-16); BLOOD UREA NITROGEN 20 MG/DL (7-18); CALCIUM LEVEL 7.9 MG/DL (8.5-10.1); CARBON DIOXIDE LEVEL 24 MEQ/L (21-32); CHLORIDE LEVEL 107 MEQ/L (98-107); CREATININE FOR GFR 1.03 MG/DL (0.55-1.30); GLUCOSE, FASTING 107 MG/DL (70-100); MAGNESIUM LEVEL 1.9 MG/DL (1.8-2.4); SODIUM LEVEL 138 MEQ/L (136-145)
[2018-03-17] MEDS: ATORVASTATIN 20 MG TAB PO (08:16)
[2018-03-17] MEDS: CitaloPRAM (CeleXA) 20 MG TAB PO (08:19)
[2018-03-17] MEDS: OLMESARTAN MEDOXOMIL 20 MG TAB (BENICAR) PO (08:19)
[2018-03-17] MEDS: SENOKOT S TAB PO (08:20)
[2018-03-17] MEDS: ACETAMINOPHEN TAB 650MG DOSE (2X325MG) PO (08:20)
[2018-03-17] MEDS: ASPIRIN 325 MG TAB PO (08:20)
[2018-03-17] MEDS: LABETALOL 100 MG TAB PO (08:21)
[2018-03-17] MEDS: HEPARIN SOD (PORCINE) 5000 UNITS/ML VIAL SC (08:21)
== END 2018-03-17 15:40 | disposition home or self-care (01) | DRG 54 ==
LOC: M ED 13:01 → M ED INP 17:11 → M PCU 20:24
DX: G43.109 Migraine with aura, not intractable, without status migrainosus (principal); I10 Essential (primary) hypertension; J44.9 Chronic obstructive pulmonary disease, unspecified; E78.5 Hyperlipidemia, unspecified; F41.9 Anxiety disorder, unspecified; F17.210 Nicotine dependence, cigarettes, uncomplicated; F32.9 Major depressive disorder, single episode, unspecified; K52.9 Noninfective gastroenteritis and colitis, unspecified; K21.9 Gastro-esophageal reflux disease without esophagitis; J45.909 Unspecified asthma, uncomplicated; M54.2 Cervicalgia; M19.90 Unspecified osteoarthritis, unspecified site; M54.6 Pain in thoracic spine; Z88.1 Allergy status to other antibiotic agents; Z88.6 Allergy status to analgesic agent; Z88.8 Allergy status to other drugs, medicaments and biological substances; Z79.82 Long term (current) use of aspirin; Z79.899 Other long term (current) drug therapy

== ENCOUNTER → 2018-03-27 | Outpatient (CLI) | payer BC ==
[2018-03-27 12:36] LABS: FOLATE 10.9 NG/ML
[2018-04-01 00:06] LABS: STRIATIONAL ANTIBODIES Negative (Neg:<1:40)
[2018-04-01 00:06] LABS: ACETYLCHOLINE RCPTOR BINDING A < 0.03 nmol/L (0.00-0.24)
== END ==
LOC: M LAB 11:12
DX: G70.00 Myasthenia gravis without (acute) exacerbation (principal); R53.1 Weakness
CPT/HCPCS: 82746

== ENCOUNTER → 2018-08-15 | Outpatient (CLI) | payer BC ==
[~2018-08-15] MED LIST changes: +ASPI1TAB15 PO; +KEFL500C17 PO; +LASI20TA3 PO; +SERO1TAB3 PO; +SPIR-10 PO; +TYLE500T78 PO
--- NOTE | 2018-08-15 20:07 | REP ---
Clinical: Right ankle trauma. Technique: AP, lateral, bilateral oblique views of the right ankle. Findings: Moderate diffuse soft tissue swelling noted. Age-related degenerative changes noted. No acute fracture or dislocation. Impression: Soft-tissue swelling. No acute fracture or dislocation. Electronically Signed by Andrew Leon MD 08/15/2018 07:58 P
--- NOTE | 2018-08-15 20:21 | REP ---
Clinical: Trauma Technique: AP, lateral, bilateral oblique views of the right foot. Findings: Osseous structures are intact. No obvious acute fracture dislocation. No subcutaneous emphysema or radiodense foreign body. Moderate degenerative change at the first MTP joint includes subchondral sclerosis, joint space narrowing, and marginal spurring. Early moderate degenerative changes at the interphalangeal joints are also noted. Lateral view demonstrates small calcaneal heal spur. Impression: Arthritic changes. No acute fracture or dislocation. Electronically Signed by Andrew Leon MD 08/15/2018 08:13 P
== END ==
LOC: M LRY 19:49
PROVIDERS: ATTEND Physician Assistant
DX: S99.911A Unspecified injury of right ankle, initial encounter (principal); X58.XXXA Exposure to other specified factors, initial encounter; Y92.9 Unspecified place or not applicable; M79.89 Other specified soft tissue disorders

== ENCOUNTER → 2018-10-24 | Outpatient (REF) | payer BC ==
[~2018-10-24] MED LIST changes: -/MOXI40TA PO; -/PANT40TA PO; +AVEL1TAB2 PO; +PROT1TAB2 PO
[2018-10-24 13:42] LABS: ALBUMIN 4.4 GM/DL (3.2-5.2); ALT/SGPT 19 U/L (12-78); BILIRUBIN,TOTAL 0.4 MG/DL (0.2-1.0); BLOOD UREA NITROGEN 16 MG/DL (7-18); CALCIUM LEVEL 8.8 MG/DL (8.5-10.1); CARBON DIOXIDE LEVEL 25 MEQ/L (21-32); CHLORIDE LEVEL 105 MEQ/L (98-107); CHOLESTEROL LEVEL 173 MG/DL (<200); CHOLESTEROL RISK RATIO 3.326 (<5); CREATININE FOR GFR 0.91 MG/DL (0.55-1.30); GLOMERULAR FILTRATION RATE > 60.0 (>51); GLUCOSE, FASTING 101 MG/DL (70-100); HDL CHOLESTEROL 52 MG/DL (>40); LDL CHOLESTEROL 107 MG/DL (<100); NON-HDL-C 121 MG/DL; POTASSIUM SERUM 3.9 MEQ/L (3.5-5.1); SODIUM LEVEL 139 MEQ/L (136-145); TOTAL PROTEIN 7.1 GM/DL (6.4-8.2); TRIGLYCERIDES LEVEL 70 MG/DL (<150)
[2018-10-24 13:45] LABS: HEMOGLOBIN A1c 6.1 %
== END ==
LOC: M SFHCPLAZ 11:01
PROVIDERS: ATTEND Nurse Practitioner Adult Health
DX: R73.9 Hyperglycemia, unspecified (principal); E78.00 Pure hypercholesterolemia, unspecified; Z83.49 Family history of other endocrine, nutritional and metabolic diseases

== ENCOUNTER → 2019-01-25 | Outpatient (REF) | payer BC ==
[2019-01-25 18:15] LABS: ALBUMIN 4.2 GM/DL (3.2-5.2); BILIRUBIN,TOTAL 0.4 MG/DL (0.2-1.0); CALCIUM LEVEL 8.8 MG/DL (8.5-10.1); CHOLESTEROL RISK RATIO 3.465 (<5); CREATININE FOR GFR 1.05 MG/DL (0.55-1.30); GLOMERULAR FILTRATION RATE 57.7 (>51); POTASSIUM SERUM 3.8 MEQ/L (3.5-5.1); THYROID STIMULATING HORMONE 2.35 uIU/ML (0.358-3.740); TOTAL PROTEIN 7.2 GM/DL (6.4-8.2)
[2019-01-25 18:27] LABS: HEMATOCRIT 44.2 % (36.0-47.0); HEMOGLOBIN 14.6 g/dl (12.0-15.5); MEAN CORPUSCULAR HEMOGLOBIN 30.7 pg (27.0-33.0); MEAN CORPUSCULAR VOLUME 92.9 fl (80.0-96.0); PLATELET COUNT, AUTOMATED 281 10^3/uL (150-450); RED BLOOD COUNT 4.76 10^6/uL (4.00-5.40); WHITE BLOOD COUNT 9.7 10^3/uL (4.0-10.0)
[2019-01-25 18:37] LABS: CREATININE, URINE 27.1 MG/DL; MALB URINE SIEMENS < 5.0 MG/L; MAU/CREAT RATIO 18.4 MCG/MG (0.0-30.0)
[2019-01-25 18:54] LABS: HEMOGLOBIN A1c 6.6 %
== END ==
LOC: M SFHCPLAZ 14:32
PROVIDERS: ATTEND Nurse Practitioner Adult Health
DX: Z00.00 Encounter for general adult medical examination without abnormal findings (principal); R73.9 Hyperglycemia, unspecified; E78.00 Pure hypercholesterolemia, unspecified; I10 Essential (primary) hypertension

== ENCOUNTER → 2019-12-26 | Outpatient (REF) | payer BC ==
[~2019-12-26] MED LIST changes: +ACET-683 PO; +ALFU10TA3 PO; +ASPI-546 PO; -ASPI1TAB15 PO; +GABA-843; +IBUP-1022 PO; +LYRI75CA PO; +ROBA750T4 PO; -SIMV20TA2 PO; +SIMV20TA22 PO; +SOMA350T PO; +TIZA4TAB4; +TRAZ-252 PO; +ZANA4TAB PO; +lyrica
[2019-12-26 17:59] LABS: HEMOGLOBIN A1c 6.1 %
[2019-12-26 18:22] LABS: ALBUMIN 3.8 GM/DL (3.2-5.2); BILIRUBIN,TOTAL 0.1 MG/DL (0.2-1.0); CALCIUM LEVEL 9.1 MG/DL (8.5-10.1); CREATININE FOR GFR 1.06 MG/DL (0.55-1.30); GLOMERULAR FILTRATION RATE 56.9 (>51); POTASSIUM SERUM 3.9 MEQ/L (3.5-5.1); THYROID STIMULATING HORMONE 1.71 uIU/ML (0.358-3.740); TOTAL PROTEIN 6.8 GM/DL (6.4-8.2)
== END ==
LOC: M SFHCPLAZ 15:10
PROVIDERS: ATTEND Nurse Practitioner Adult Health
DX: R60.9 Edema, unspecified (principal); I10 Essential (primary) hypertension; R73.9 Hyperglycemia, unspecified; L65.9 Nonscarring hair loss, unspecified

== ENCOUNTER 2020-02-12 11:58 | Emergency (ER) | payer BC, OTHER ==
[~2020-02-12] VITALS: Ht 147.3 cm; Wt 73.6 kg
[~2020-02-12 11:58] MED LIST changes: -ACET-683 PO; -ALFU10TA3 PO; -GABA-843; -IBUP-1022 PO; -LYRI75CA PO; -ROBA750T4 PO; -SOMA350T PO; -TIZA4TAB4; -TRAZ-252 PO; -ZANA4TAB PO; -lyrica
[2020-02-12] MEDS ORDERED: IBUPROFEN 600MG TAB PO ONE (13:00)
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
[2020-02-12] MEDS ORDERED: SOMA350T PO (14:08)
[2020-02-12] MEDS ORDERED: IBUP-1022 PO (14:08)
[2020-02-12 14:32] VITALS: BP 182/88
== END 2020-02-12 14:37 | disposition home or self-care (01) ==
LOC: M ED 11:58 → EDBD 11:58 → M ED 14:37
DX: S13.4XXA Sprain of ligaments of cervical spine, initial encounter (principal); S29.012A Strain of muscle and tendon of back wall of thorax, initial encounter; V49.49XA Driver injured in collision with other motor vehicles in traffic accident, initial encounter; Y92.410 Unspecified street and highway as the place of occurrence of the external cause; I10 Essential (primary) hypertension; E78.5 Hyperlipidemia, unspecified; Z79.899 Other long term (current) drug therapy; Z79.82 Long term (current) use of aspirin; Z88.1 Allergy status to other antibiotic agents; Z88.8 Allergy status to other drugs, medicaments and biological substances

== ENCOUNTER → 2020-02-14 | Outpatient (CLI) | payer OTHER ==
[~2020-02-14] MED LIST changes: +ACET-683 PO; +ALFU10TA3 PO; +GABA-843; +IBUP-1022 PO; +LYRI75CA PO; +ROBA750T4 PO; +SOMA350T PO; +TIZA4TAB4; +TRAZ-252 PO; +ZANA4TAB PO; +lyrica
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
== END ==
LOC: M LRY 13:39
PROVIDERS: ATTEND Nurse Practitioner Family
DX: M54.5 Low back pain (principal); M51.37 Other intervertebral disc degeneration, lumbosacral region

== ENCOUNTER 2020-02-27 12:28 | Emergency (ER) | payer OTHER ==
[~2020-02-27] VITALS: Ht 147.3 cm; Wt 77.1 kg
[~2020-02-27 12:28] MED LIST changes: -ACET-683 PO; -ALFU10TA3 PO; -GABA-843; -LYRI75CA PO; -ROBA750T4 PO; -TIZA4TAB4; -TRAZ-252 PO; -ZANA4TAB PO; -lyrica
[2020-02-27] MEDS ORDERED: TRAZ-252 PO (12:39)
[2020-02-27] MEDS ORDERED: ZANA4TAB PO (12:39)
[2020-02-27 13:27] LABS: BASO % 0.4 % (0.0-1.0); EOS # 0.2 10^3/uL (0.0-0.5); EOS % 2.3 % (0.0-3.0); HEMATOCRIT 39.2 % (36.0-47.0); HEMOGLOBIN 13.2 g/dl (12.0-15.5); LYMPH # 1.5 10^3/uL (1.5-5.0); LYMPH % 20.6 % (24.0-44.0); MEAN CORPUSCULAR HEMOGLOBIN 30.6 pg (27.0-33.0); MEAN CORPUSCULAR HGB CONC 33.7 g/dl (32.0-36.5); MEAN CORPUSCULAR VOLUME 90.7 fl (80.0-96.0); MONO # 0.7 10^3/uL (0.0-0.8); MONO % 8.7 % (0.0-5.0); NEUTROPHILS # 5.1 10^3/uL (1.5-8.5); NEUTROPHILS % 67.7 % (36.0-66.0); PLATELET COUNT, AUTOMATED 283 10^3/uL (150-450); RED BLOOD COUNT 4.32 10^6/uL (4.00-5.40); WHITE BLOOD COUNT 7.5 10^3/uL (4.0-10.0)
[2020-02-27 13:47] LABS: INR 0.91; PARTIAL THROMBOPLASTIN TIME 22.1 SECONDS (25.0-38.4); PROTHROMBIN TIME 12.4 SECONDS (11.8-14.0)
[2020-02-27 13:52] LABS: ALBUMIN 3.8 GM/DL (3.2-5.2); ALT/SGPT 42 U/L (12-78); BILIRUBIN,DIRECT < 0.1 MG/DL (0.0-0.2); BILIRUBIN,TOTAL 0.2 MG/DL (0.2-1.0); BLOOD UREA NITROGEN 22 MG/DL (7-18); CALCIUM LEVEL 8.7 MG/DL (8.5-10.1); CARBON DIOXIDE LEVEL 24 MEQ/L (21-32); CHLORIDE LEVEL 107 MEQ/L (98-107); CREATININE FOR GFR 0.94 MG/DL (0.55-1.30); GLOMERULAR FILTRATION RATE > 60.0 (>51); GLUCOSE, FASTING 93 MG/DL (70-100); NT-PRO BNP 59 PG/ML (<125); POTASSIUM SERUM 3.9 MEQ/L (3.5-5.1); SODIUM LEVEL 135 MEQ/L (136-145); TOTAL PROTEIN 7.3 GM/DL (6.4-8.2)
--- NOTE | 2020-02-27 14:23 | REPVR ---
PROCEDURE INFORMATION: Exam: US Duplex Lower Extremity Veins, Bilateral Exam date and time: 02/27/2020 2:09 PM Age: 60 years old Clinical indication: Pain; Leg, lower; Bilateral; Additional info: Pain, swelling R/O dvt TECHNIQUE: Imaging protocol: Real-time duplex ultrasound of the extremities with 2-D wagner scale, color Doppler flow and spectral waveform analysis with image documentation. Complete exam focused on the bilateral lower extremity veins. COMPARISON: No relevant prior studies available. FINDINGS: Right deep veins: Unremarkable. The common femoral, femoral, proximal profunda femoral and popliteal veins are patent without thrombus. Normal Doppler waveforms. Normal compressibility and/or augmentation response. Right superficial veins: Saphenofemoral junction is patent without thrombus. Left deep veins: Unremarkable. The common femoral, femoral, proximal profunda femoral and popliteal veins are patent without thrombus. Normal Doppler waveforms. Normal compressibility and/or augmentation response. Left superficial veins: Saphenofemoral junction is patent without thrombus. Soft tissues: Unremarkable. IMPRESSION: No deep venous thrombus demonstrated in either lower extremity. Electronically signed by: Ricardo Byrd On 02/27/2020 14:23:06 PM
[2020-02-27 14:29] VITALS: BP 137/62
== END 2020-02-27 14:31 | disposition home or self-care (01) ==
LOC: M ED 12:28
DX: R60.0 Localized edema (principal); M54.32 Sciatica, left side; M51.36 Other intervertebral disc degeneration, lumbar region; Z79.899 Other long term (current) drug therapy; Z79.82 Long term (current) use of aspirin; Z88.1 Allergy status to other antibiotic agents; Z88.8 Allergy status to other drugs, medicaments and biological substances; Z87.891 Personal history of nicotine dependence

== ENCOUNTER 2020-03-03 10:00 | Inpatient (IN) | payer OTHER ==
[~2020-03-03] VITALS: Ht 147.3 cm; Wt 75.6 kg
[~2020-03-03 10:00] MED LIST changes: +TRAZ-252 PO; +ZANA4TAB PO
[2020-03-03] MEDS ORDERED: TIZA4TAB4 (10:05)
[2020-03-03] MEDS ORDERED: lyrica (10:05)
[2020-03-03] MEDS ORDERED: GABA-843 (10:05)
[2020-03-03] MEDS ORDERED: LIDOCAINE 2% 5ML JELLY UROJET TOP ONE (11:15)
[2020-03-03] MEDS ORDERED: MORPHINE 2 MG/ML 1ML VIAL (J2270) IV ONE (11:45)
[2020-03-03 11:51] LABS: BASO % 0.5 % (0.0-1.0); EOS # 0.2 10^3/uL (0.0-0.5); EOS % 2.1 % (0.0-3.0); HEMATOCRIT 40.7 % (36.0-47.0); HEMOGLOBIN 13.9 g/dl (12.0-15.5); LYMPH # 2.1 10^3/uL (1.5-5.0); LYMPH % 25.7 % (24.0-44.0); MEAN CORPUSCULAR HEMOGLOBIN 30.8 pg (27.0-33.0); MEAN CORPUSCULAR HGB CONC 34.2 g/dl (32.0-36.5); MEAN CORPUSCULAR VOLUME 90.2 fl (80.0-96.0); MONO # 0.7 10^3/uL (0.0-0.8); MONO % 8.3 % (0.0-5.0); NEUTROPHILS # 5.1 10^3/uL (1.5-8.5); NEUTROPHILS % 63.2 % (36.0-66.0); PLATELET COUNT, AUTOMATED 308 10^3/uL (150-450); RED BLOOD COUNT 4.51 10^6/uL (4.00-5.40); WHITE BLOOD COUNT 8.1 10^3/uL (4.0-10.0)
[2020-03-03 12:19] LABS: ALBUMIN 4.3 GM/DL (3.2-5.2); ALT/SGPT 39 U/L (12-78); BILIRUBIN,DIRECT < 0.1 MG/DL (0.0-0.2); BILIRUBIN,TOTAL 0.2 MG/DL (0.2-1.0); LIPASE 325 U/L (73-393); TOTAL PROTEIN 7.5 GM/DL (6.4-8.2)
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
[2020-03-03] MEDS ORDERED: methylPREDNISolone 40MG 1ML VIAL IV ONE (15:45)
[2020-03-03] MEDS ORDERED: ACET-683 PO (16:21)
[2020-03-03] MEDS ORDERED: LYRI75CA PO (16:21)
[2020-03-03] MEDS ORDERED: FUROSEMIDE 20 MG TAB PO PRN (17:30)
[2020-03-03] MEDS ORDERED: traZODone 50 MG TAB PO PRN (17:30)
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
--- NOTE | 2020-03-03 18:20 | REPVR ---
PROCEDURE INFORMATION: Exam: MR Thoracic Spine Without Contrast Exam date and time: 03/03/2020 5:29 PM Age: 60 years old Clinical indication: Weakness; Prior surgery; Surgery date: 6+ months; Surgery type: PT unsure, 1994; Additional info: Per neurology weakness legs, no rectal tone, urinary retenti TECHNIQUE: Imaging protocol: Multiplanar magnetic resonance images of the thoracic spine without contrast. 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 Spinal cord: Long segment syrinx extends from at least T6 to the lowest [id number] image at L2. Syrinx measures 2.8 mm in maximum diameter. Discs/Spinal canal/Neural foramina: The spine demonstrates mild degenerative changes. Soft tissues: Unremarkable. IMPRESSION: Long segment syrinx extending from T6-L2 measuring 2.8 mm in maximum diameter. Electronically signed by: Ismael Perkins On 03/03/2020 18:20:28 PM
--- NOTE | 2020-03-03 18:25 | REPVR ---
PROCEDURE INFORMATION: Exam: MR Cervical Spine Without Contrast Exam date and time: 03/03/2020 5:29 PM Age: 60 years old Clinical indication: Weakness; Prior surgery; Surgery date: 6+ months; Surgery type: Fusion, 2004; Additional info: Per neurology weakness legs, no rectal tone, urinary retenti TECHNIQUE: Imaging protocol: Multiplanar magnetic resonance images of the cervical spine without contrast. COMPARISON: CT Spine,cervical w/o contrast 02/12/2020 12:50 PM FINDINGS: Vertebrae: Status post anterior interbody fusion of C5 and C6 including a disc spacer at C5-C6 using vertebral screws and an anterior metallic side plate. Spinal cord: Normal signal. No cord compression. C2-C3: No significant disc disease. No significant spinal stenosis. C3-C4: Moderate bilateral foraminal narrowing at C3, C4, moderate to severe foraminal narrowing on the left at C6 secondary to uncinate joint hypertrophic changes. C4-C5: No significant disc disease. No significant spinal stenosis. C5-C6: No significant disc disease. No significant spinal stenosis. C6-C7: Upper margin of the syrinx described on the accompanying thoracic MRI report demonstrated at C6-C7. C7-T1: Mild annular bulges from C2-C3 to C7-T1 effaces the ventral subarachnoid space to varying degrees with minimal cord impingement at C7-T1. Brain: Magnetic susceptibility artifact obscures local anatomy. Vertebral arteries: Expected flow voids in the vertebral arteries. Soft tissues: Unremarkable. IMPRESSION: 1. Status post anterior interbody fusion of C5-C6. 2. Upper margin of the syrinx described on the accompanying thoracic MRI report demonstrated at C6-C7. 3. Mild degenerative spondylosis Mild annular bulges from C2-C3 to C7-T1 effaces the ventral subarachnoid space to varying degrees with minimal cord impingement at C7-T1. Also noted are multilevel foraminal stenosis as described above. Electronically signed by: Ismael Perkins On 03/03/2020 18:25:46 PM
[2020-03-03] MEDS ORDERED: LIDOCAINE 5% (LIDODERM) PATCH TD PRN (18:30)
[2020-03-03 18:32] LABS: MAGNESIUM LEVEL 2.2 MG/DL (1.8-2.4)
[2020-03-03 19:43] VITALS: BP 158/74
[2020-03-03] MEDS: tiZANidine 4 MG TAB PO PRN (20:03)
[2020-03-03] MEDS: PREGABALIN 75 MG CAP(LYRICA) PO SCH (20:03)
[2020-03-03] MEDS: ACETAMINOPHEN 500 MG TAB PO PRN (20:03)
[2020-03-03] MEDS ORDERED: SIMVASTATIN 20 MG TAB PO SCH (21:00)
[2020-03-03] MEDS ORDERED: MONTELUKAST 10 MG TAB PO SCH (21:00)
[2020-03-03] MEDS ORDERED: **NOTE PATIENT COMMENT** MISC XX SCH (21:00)
[2020-03-04] MEDS ORDERED: traMADol 50 MG TAB PO ONE (01:30)
[2020-03-04] MEDS: ACETAMINOPHEN 500 MG TAB PO PRN (04:13)
[2020-03-04 06:00] VITALS: BP 160/73
[2020-03-04 06:02] LABS: HEMATOCRIT 39.9 % (36.0-47.0); HEMOGLOBIN 13.4 g/dl (12.0-15.5); MEAN CORPUSCULAR HEMOGLOBIN 30.7 pg (27.0-33.0); MEAN CORPUSCULAR HGB CONC 33.6 g/dl (32.0-36.5); MEAN CORPUSCULAR VOLUME 91.3 fl (80.0-96.0); PLATELET COUNT, AUTOMATED 292 10^3/uL (150-450); RED BLOOD COUNT 4.37 10^6/uL (4.00-5.40); WHITE BLOOD COUNT 7.8 10^3/uL (4.0-10.0)
[2020-03-04 06:22] LABS: CALCIUM LEVEL 9.1 MG/DL (8.5-10.1); CREATININE FOR GFR 1.16 MG/DL (0.55-1.30); GLOMERULAR FILTRATION RATE 51.1 (>51); POTASSIUM SERUM 4.4 MEQ/L (3.5-5.1)
[2020-03-04] MEDS: PREGABALIN 75 MG CAP(LYRICA) PO SCH (08:02)
[2020-03-04] MEDS: tiZANidine 4 MG TAB PO PRN (08:02)
[2020-03-04 08:03] VITALS: BP 168/75
[2020-03-04] MEDS ORDERED: ASPIRIN 81 MG ENTERIC TAB PO SCH (09:00)
[2020-03-04] MEDS ORDERED: OLMESARTAN MEDOXOMIL 20 MG TAB (BENICAR) PO SCH (09:00)
[2020-03-04] MEDS ORDERED: CitaloPRAM (CeleXA) 20 MG TAB PO SCH (09:00)
[2020-03-04 09:40] VITALS: BP 161/71
[2020-03-04 14:00] VITALS: BP 120/75
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
[2020-03-05] MEDS ORDERED: FLUBLOK(EGG FREE)(QUAD)INFLUENZA VACC 0.5ML SYRINGE 18YRS & OLDER IM ONE (09:00)
== END 2020-03-04 16:04 | disposition short-term general hospital (02) | DRG 42 ==
LOC: M ED 10:00 → M ED INP 16:34 → M MSPAV 19:45
PROVIDERS: ADMIT Internal Medicine; ATTEND Internal Medicine
DX: G95.0 Syringomyelia and syringobulbia (principal); I10 Essential (primary) hypertension; M54.5 Low back pain; E78.5 Hyperlipidemia, unspecified; R60.0 Localized edema; J44.9 Chronic obstructive pulmonary disease, unspecified; Z87.891 Personal history of nicotine dependence; Z79.82 Long term (current) use of aspirin; Z79.899 Other long term (current) drug therapy; Z86.73 Personal history of transient ischemic attack (TIA), and cerebral infarction without residual deficits; Z88.1 Allergy status to other antibiotic agents; Z88.8 Allergy status to other drugs, medicaments and biological substances; Z88.6 Allergy status to analgesic agent

== ENCOUNTER → 2020-04-01 | Outpatient (REF) | payer BC ==
[~2020-04-01] MED LIST changes: +ACET-683 PO; +ALFU10TA3 PO; +GABA-843; +LYRI75CA PO; +ROBA750T4 PO; +TIZA4TAB4; +lyrica
== END ==
LOC: M SFHCPLAZ 10:11
PROVIDERS: ATTEND Physician Assistant
DX: R30.0 Dysuria (principal)

== ENCOUNTER 2020-04-08 14:43 | Emergency (ER) | payer OTHER, BC ==
[~2020-04-08] VITALS: Ht 148.6 cm; Wt 78.6 kg
[~2020-04-08 14:43] MED LIST changes: -ALFU10TA3 PO; -ROBA750T4 PO
[2020-04-08] MEDS ORDERED: methocarbamoL 750 MG TAB PO ONE (15:45)
[2020-04-08] MEDS ORDERED: PERCOCET 5MG/325MG TAB PO ONE (15:45)
[2020-04-08 16:20] LABS: HEMATOCRIT 42.4 % (36.0-47.0); HEMOGLOBIN 14.2 g/dl (12.0-15.5); MEAN CORPUSCULAR HGB CONC 33.5 g/dl (32.0-36.5); MEAN CORPUSCULAR VOLUME 89.6 fl (80.0-96.0); PLATELET COUNT, AUTOMATED 315 10^3/uL (150-450); RED BLOOD COUNT 4.73 10^6/uL (4.00-5.40); WHITE BLOOD COUNT 8.1 10^3/uL (4.0-10.0)
[2020-04-08 16:56] LABS: ERYTHROCYTE SEDIMENTATION RATE 5 mm/hr (0-30)
[2020-04-08 19:39] VITALS: BP 106/54
[2020-04-08] MEDS ORDERED: ALFU10TA3 PO (19:47)
--- NOTE | 2020-04-08 20:14 | REPVR ---
PROCEDURE INFORMATION: Exam: MR Thoracic Spine Without Contrast Exam date and time: 04/08/2020 7:10 PM Age: 60 years old Clinical indication: Pain in thoracic spine; With radiculopathy; Bilateral; Additional info: Thoracic and lumbar pain with radiation to legs. Prior history states surgery around 1994. TECHNIQUE: Imaging protocol: Multiplanar magnetic resonance images of the thoracic spine without contrast. COMPARISON: 1. MRI-Spine,Thoracic without con 03/03/2020 5:27 PM 2. MRI-Spine,Cervical without con 03/03/2020 5:08:[address] Spine,thoracic w/o contrast 02/12/2020 12:50:47 PM FINDINGS: Vertebrae: Mild exaggeration of the thoracic kyphosis. No acute fracture seen. 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 No discrete thoracic cord mass identified. Discs/Spinal canal/Neural foramina: There is [id number] mid and lower thoracic degenerative disc disease with lower thoracic endplate Schmorl's nodes. No focal disc protrusion or extrusion seen. Partial fusion across the left aspect of the T6-7 disc space. Absence of the left T7 pedicle, superior articular facet and transverse process as well as left 7th rib best appreciated on a prior CT study. A small, irregular non-compressive fluid collection adjacent to the left aspect of thecal sac at the T6-7 level measuring approximately 1.4 x 0.9 cm on image 5 of series 301, this is also seen on sagittal image 5 of series 501. This is unchanged, likely postsurgical. The thoracic central spinal canal is patent at all levels. Pleural space: Trace bilateral pleural effusions. Soft tissues: Left paravertebral postoperative granulation tissue about the T6-7 level. Marrow: T3 and T7 vertebral body hemangiomas. IMPRESSION: 1. No significant interval change. 2. Thoracic cord hydrosyringomyelia again demonstrated. 3. Postsurgical changes at T6-7. Electronically signed by: Che Ayala On 04/08/2020 20:14:38 PM
--- NOTE | 2020-04-08 20:24 | REPVR ---
PROCEDURE INFORMATION: Exam: MR Lumbar Spine Without Contrast. Exam date and time: 04/08/2020 7:10 PM Age: 60 years old Clinical indication: Low back pain; Additional info: Thoracic and lumbar pain with radiation to legs TECHNIQUE: Imaging protocol: Multiplanar magnetic resonance images of the lumbar spine without intravenous contrast. COMPARISON: MRI-Spine, L.S. without con 03/03/2020 12:47 PM MRI-Spine,Thoracic without con 04/08/2020 6:34:45 PM FINDINGS: Vertebrae: Anatomic alignment. No acute fracture seen. Spinal cord: The conus medullaris ends lower normal at the L2 level. Faint distal thoracic cord hydrosyringomyelia which is evaluated separately on a dedicated exam. There is disc desiccation from L2-L3 through L4-L5. Disc height loss and spondylosis is mild at L3-L4 and L4-L5. L1-L2: No significant interval change. Kbyz-hz-azzlbzvt facet arthropathy. No stenoses. L2-L3: No significant interval change. Mild disc bulge as well as mild to moderate facet arthropathy. The central spinal canal is patent. Mild bilateral neural foraminal stenoses. L3-L4: No significant interval change. Moderate diffuse disc bulge and left paracentral disc protrusion, as before. Moderate facet arthropathy and ligamentum flavum buckling, unchanged. Central spinal canal stenosis is [id number]. The lateral recesses are narrowed near the L4 nerve roots, more so on the left. Moderate bilateral neural foraminal stenoses, stable. L4-L5: No significant interval change. Moderate diffuse disc bulge, facet arthropathy and ligamentum flavum buckling. Central spinal canal stenosis is [id number]. The lateral recesses are narrowed near the L5 nerve roots. Moderate bilateral neural foraminal stenoses. L5-S1: No significant interval change. Moderate facet arthropathy. No stenoses. Reproductive: The uterus is more completely imaged on this study compared to the prior study. The endometrium is prominent measuring 10 mm in thickness. Soft tissues: Unremarkable. IMPRESSION: 1. Images are mildly motion degraded. 2. No significant interval change identified. 3. Central spinal canal, lateral recess and neural foraminal stenoses at L3-L4 and L4-L5. 4. Prominent uterine endometrial thickness of uncertain significance. Electronically signed by: Che Ayala On 04/08/2020 20:24:40 PM
[2020-04-08] MEDS ORDERED: ROBA750T4 PO (21:03)
[2020-04-08] MEDS ORDERED: OXYCODONE/APAP 5MG/325MG(BULK FOR ED) 1 TABLET PO ONE (21:15)
== END 2020-04-08 21:36 | disposition home or self-care (01) ==
LOC: EDBD 14:43 → M ED 14:43
DX: M48.061 Spinal stenosis, lumbar region without neurogenic claudication (principal); K21.9 Gastro-esophageal reflux disease without esophagitis; J44.9 Chronic obstructive pulmonary disease, unspecified; I10 Essential (primary) hypertension; Z79.82 Long term (current) use of aspirin; Z79.899 Other long term (current) drug therapy; Z86.73 Personal history of transient ischemic attack (TIA), and cerebral infarction without residual deficits; Z87.891 Personal history of nicotine dependence; Z88.0 Allergy status to penicillin; Z88.1 Allergy status to other antibiotic agents; Z88.8 Allergy status to other drugs, medicaments and biological substances

== ENCOUNTER → 2020-05-05 | Outpatient (REF) | payer BC ==
[~2020-05-05] MED LIST changes: +ALFU10TA3 PO; +ROBA750T4 PO
== END ==
LOC: M SMT 17:00
PROVIDERS: ATTEND Urology
DX: N31.9 Neuromuscular dysfunction of bladder, unspecified (principal)

== ENCOUNTER 2020-06-18 15:15 | Outpatient (RCR) | payer OTHER ==
[~2020-06-18 15:15] MED LIST changes: +LABE100T4 PO; -LABE10TAB PO
== END 2020-06-19 ==
LOC: M PT 15:15
PROVIDERS: ATTEND Neurological Surgery
DX: Z51.89 Encounter for other specified aftercare (principal); M54.5 Low back pain

== ENCOUNTER 2020-07-10 15:15 | Outpatient (RCR) | payer OTHER ==
[~2020-07-10 15:15] MED LIST changes: +GABA-282; -GABA-843
== END 2020-07-20 ==
LOC: M PT 15:15
PROVIDERS: ATTEND Neurological Surgery
DX: Z47.89 Encounter for other orthopedic aftercare (principal); M54.5 Low back pain

== ENCOUNTER → 2020-11-13 | Outpatient (REF) | payer BC ==
[~2020-11-13] MED LIST changes: +ASPI-569 PO; -ASPI81TAEC PO; +HYDR-3490 PO; -HYDR25TAB PO
== END ==
LOC: M LAB REF 10:53
PROVIDERS: ATTEND Nurse Practitioner Adult Health
DX: R19.7 Diarrhea, unspecified (principal)

== ENCOUNTER → 2020-12-02 | Outpatient (CLI) | payer BC ==
--- NOTE | 2020-12-03 07:53 | REP ---
INDICATION: NICOTINE DEPENDENCE COMPARISON: 07/14/2012 TECHNIQUE: Axial noncontrast images from the thoracic inlet to the upper abdomen using low-dose lung screening technique (LDCT). FINDINGS: Lung montes de oca are relatively well aerated and essentially clear. Minimal chronic appearing linear scarring noted. No acute consolidation, significant nodule, or mass. No pleural effusion. No pneumothorax. Tracheobronchial tree is patent. IMPRESSION: Lung-RADS category 1. Management recommendations include annual low-dose CT surveillance. <Electronically signed by Andrew Leon > 12/03/20 0700
== END ==
LOC: M RAD 16:05
PROVIDERS: ATTEND Internal Medicine
DX: Z12.2 Encounter for screening for malignant neoplasm of respiratory organs (principal); Z87.891 Personal history of nicotine dependence

== ENCOUNTER → 2020-12-04 | Outpatient (REF) | payer BC | LOC: M SFHCPLAZ 17:35 | PROVIDERS: ATTEND Nurse Practitioner Adult Health | DX: N93.9 Abnormal uterine and vaginal bleeding, unspecified (principal) ==

== ENCOUNTER → 2020-12-06 | Outpatient (REF) | payer BC | LOC: M LAB REF 07:53 | PROVIDERS: ATTEND Nurse Practitioner Adult Health | DX: N93.9 Abnormal uterine and vaginal bleeding, unspecified (principal) ==

== ENCOUNTER → 2020-12-17 | Outpatient (CLI) | payer BC ==
--- NOTE | 2020-12-17 12:43 | REP ---
INDICATION: V. COMPARISON: 09/22/2009 the latest prior TECHNIQUE: Transvesical and transvaginal imaging FINDINGS: The uterus measures 7.8 x 3.7 x 4.2 cm. The parenchymal echo pattern is heterogenous without evidence of a measurable mass. The endometrial echo complex is heterogenous with ill-defined margins and seen with central anechoic areas. The maximal measurement is 8 mm. The findings represent a significant change compared to the prior exam. No free fluid is seen in the cul-de-sac. Neither ovary was visualized transvesically or transvaginally. Urinary bladder measures 10 x 8 x 6 cm. IMPRESSION: Suspect appearing endometrial echo complex as described above. Pre and post gadolinium enhanced pelvic MRI should be considered at this time if clinically relevant. Nonvisualization of both ovaries. This too could be re-evaluated with MRI. <Electronically signed by Brennan Chavez > 12/17/20 5210
== END ==
LOC: M RAD 11:50
PROVIDERS: ATTEND Nurse Practitioner Adult Health
DX: N93.9 Abnormal uterine and vaginal bleeding, unspecified (principal); R10.2 Pelvic and perineal pain; R93.5 Abnormal findings on diagnostic imaging of other abdominal regions, including retroperitoneum

== ENCOUNTER → 2020-12-25 | Outpatient (CLI) | payer BC ==
[~2020-12-25] MED LIST changes: +GASTROGRAFIN SOLUTION 30ML (Q9963) As Ordered ONE; +ISOVUE-370 76% 100ML VIAL As Ordered ONE
--- NOTE | 2020-12-25 14:42 | REP ---
INDICATION: DIARRHEA VAGINAL BLEEDING ABD BLOATING. COMPARISON: 06/16/2012 TECHNIQUE: Axial contrast-enhanced images from the lung bases to the pubic symphysis using oral and 100 cc Isovue 370 intravenous contrast material. Coronal and sagittal reformations obtained. This CT examination was performed using the following dose reduction techniques: Automated exposure control, adjustment of mA and/or kv according to the patient's size, and the use of iterative reconstruction technique. FINDINGS: Lung bases are clear. Visualized heart and pericardium normal. Mild fatty infiltration to the liver suggested without focal hepatic lesion. Spleen, pancreas, gallbladder, bilateral adrenal glands and kidneys are normal. The enteric system is without obstruction or acute inflammatory process. Sigmoid diverticulosis noted without acute diverticulitis. Normal terminal ileum and appendix identified in the right lower quadrant. Pelvis demonstrates normal bladder and age-appropriate uterus/adnexa. No ascites. No free air. No intraperitoneal or retroperitoneal adenopathy. Atherosclerotic changes to the aorta without aneurysm or dissection. Musculoskeletal structures demonstrate age-related degenerative changes without acute osseous abnormality. IMPRESSION: 1. No acute abdominopelvic pathology appreciated. 2. Hepatosteatosis. 3. Sigmoid diverticulosis without acute diverticulitis. <Electronically signed by Andrew Leon > 12/25/20 0648
== END ==
LOC: M RAD 12:12
PROVIDERS: ATTEND Nurse Practitioner Adult Health
DX: K76.0 Fatty (change of) liver, not elsewhere classified (principal); K57.30 Diverticulosis of large intestine without perforation or abscess without bleeding; R19.7 Diarrhea, unspecified; N93.9 Abnormal uterine and vaginal bleeding, unspecified; R14.0 Abdominal distension (gaseous)
CPT/HCPCS: 74177; Q9963; Q9967

== ENCOUNTER → 2020-12-26 | Outpatient (CLI) | payer BC ==
[~2020-12-26] MED LIST changes: -CITA40TA4 PO; +CITA40TA7 PO; -GASTROGRAFIN SOLUTION 30ML (Q9963) As Ordered ONE; -ISOVUE-370 76% 100ML VIAL As Ordered ONE; +PRED20TA; +TIZA10TA; -TIZA4TAB4
== END ==
LOC: M RAD 15:10
PROVIDERS: ATTEND Nurse Practitioner Women's Health
DX: N31.9 Neuromuscular dysfunction of bladder, unspecified (principal)

== ENCOUNTER → 2021-02-25 | Outpatient (CLI) | payer BC ==
[~2021-02-25] MED LIST changes: +CITA40TA4 PO; -CITA40TA7 PO; -PRED20TA; -TIZA10TA; +TIZA4TAB4
== END ==
LOC: M LABSMTC 11:11
PROVIDERS: ATTEND Anesthesiology
DX: Z11.52 Encounter for screening for COVID-19 (principal)

== ENCOUNTER → 2021-02-26 | Outpatient (CLI) | payer BC ==
[2021-02-26 13:59] LABS: ALBUMIN 3.7 GM/DL (3.2-5.2); BILIRUBIN,TOTAL 0.3 MG/DL (0.2-1.0); CREATININE FOR GFR 1.28 MG/DL (0.55-1.30); GLOMERULAR FILTRATION RATE 45.4 (>51); POTASSIUM SERUM 4.5 MEQ/L (3.5-5.1); TOTAL PROTEIN 6.8 GM/DL (6.4-8.2)
[2021-02-26 14:42] LABS: HEMOGLOBIN A1c 5.9 %
== END ==
LOC: M PLALAB 11:50
PROVIDERS: ATTEND Family Medicine
DX: Z01.818 Encounter for other preprocedural examination (principal)

== ENCOUNTER 2021-02-27 10:00 | Day surgery (SDC) | payer BC ==
[~2021-02-27] VITALS: Ht 147.3 cm; Wt 74.3 kg
[~2021-02-27 10:00] MED LIST changes: +LR 1,000 ML IV ONE
[2021-02-27 10:29] LABS: HEMATOCRIT 41.9 % (36.0-47.0); HEMOGLOBIN 14.3 g/dl (12.0-15.5); MEAN CORPUSCULAR HGB CONC 34.1 g/dl (32.0-36.5); MEAN CORPUSCULAR VOLUME 90.9 fl (80.0-96.0); PLATELET COUNT, AUTOMATED 238 10^3/uL (150-450); RED BLOOD COUNT 4.61 10^6/uL (4.00-5.40); WHITE BLOOD COUNT 6.7 10^3/uL (4.0-10.0)
[2021-02-27] MEDS ORDERED: MIDAZOLAM INJ 2MG/2ML VIAL (J2250 PER 1MG) As Ordered ONE (10:54)
[2021-02-27] MEDS ORDERED: KETOROLAC 60MG 2ML VIAL As Ordered ONE (10:54)
[2021-02-27] MEDS ORDERED: ONDANSETRON 4MG/2ML VIAL As Ordered ONE (10:54)
[2021-02-27] MEDS ORDERED: dexameTHASONE 4 MG/ML 1ML VIAL (J1100 PER 1MG) As Ordered ONE (10:54)
[2021-02-27] MEDS ORDERED: propofoL 200 MG/20 ML VIAL As Ordered ONE (10:54)
[2021-02-27] MEDS ORDERED: LIDOCAINE 2% 100MG/5ML SDV (FOR ANES.) As Ordered ONE (10:54)
[2021-02-27] MEDS ORDERED: fentaNYL 100 MCG/2 ML INJECTION (J3010) As Ordered ONE (10:55)
--- NOTE | 2021-02-27 12:01 | ROOPDOC ---
[facility] Report Of Operation Report of Operation DATE OF PROCEDURE: 02/27/21 PREOPERATIVE DIAGNOSES: 1. Postmenopausal bleeding POSTOPERATIVE DIAGNOSES: 1. Endometrial polyp PROCEDURE PERFORMED: Hysteroscopy,myosure, dilation and curettage. SURGEON: Aleah Terrell MD INFO ANALYST: None. ANESTHESIA: General via laryngeal mask airway ESTIMATED BLOOD LOSS: 5ml IV FLUIDS: 400 mL of lactated Ringer's solution. URINE OUTPUT: Not obtained. PREOPERATIVE ANTIBIOTICS: None. OPERATIVE FINDINGS: Anterior wall endometrial polyp. Bilateral ostia was visualized. DESCRIPTION OF PROCEDURE: After informed consent was obtained written consent was reviewed, the patient brought to operating room where she was placed under general anesthesia. She was then placed in lithotomy position and was prepped a nd draped in normal sterile fashion. Time-out in the operating room was then performed identifying the patient, procedure be performed as well as drug allergies. [place] speculum was placed revealing the cervix. Anterior lip of the cervix grasped with a single-tooth tenaculum. The uterus then sounded to 9 cm. The cervix then sequentially dilated using Hanks dilators. Hysteroscope was then advanced through the cervical os and endometrial cavity was observed with the above-noted findings. Myosure was then advanced. Endometrial polyp was morcellated. Myosure device was removed. Hysteroscope was then removed. Sharp curette was then advanced through the cervical os to the level of the fundus and the uterus curetted in a 360 degree fashion. Tissue was obtained and this was sent to pathology for evaluation. The single-tooth tenaculum was then removed. Tenaculum sites were noted be hemostatic. The speculum was then removed. The patient was then taken out of lithotomy position, was awakened from general anesthesia and taken recovery in stable condition. ALEAH TERRELL MD. Feb 27, 2021 12:01
[2021-02-27] MEDS ORDERED: ACETAMINOPHEN 1000MG 100ML IV BTL (OFIRMEV) (J0131 PER 10MG) As Ordered ONE (12:21)
[2021-02-27] MEDS ORDERED: ePHEDrine SULFATE 25 MG/5 ML(5MG/ML) SYRINGE As Ordered ONE (12:21)
[2021-02-27] MEDS ORDERED: METOCLOPRAMIDE INJ 10MG/2ML VIAL (J2765 PER 1) As Ordered ONE (12:28)
[2021-02-27] MEDS ORDERED: LR 1,000 ML IV SCH (13:15)
[2021-02-27] MEDS ORDERED: ONDANSETRON 4MG/2ML VIAL IV PRN (13:15)
[2021-02-27] MEDS ORDERED: oxyCODONE 5MG TAB PO PRN (13:15)
[2021-02-27] MEDS ORDERED: fentaNYL 100 MCG/2 ML INJECTION (J3010) IV PRN (13:15)
[2021-02-27] MEDS ORDERED: PERCOCET 5MG/325MG TAB PO PRN (13:20)
[2021-02-27 14:45] VITALS: BP 167/75
[2021-02-27] MEDS ORDERED: KETOROLAC 30 MG/ML 1ML VIAL IV SCH (19:00)
== END 2021-02-27 14:45 | disposition home or self-care (01) ==
LOC: M SDC 10:00
PROVIDERS: ATTEND Obstetrics & Gynecology
DX: N84.0 Polyp of corpus uteri (principal); N95.0 Postmenopausal bleeding; I10 Essential (primary) hypertension; J44.9 Chronic obstructive pulmonary disease, unspecified; Z79.82 Long term (current) use of aspirin; Z79.52 Long term (current) use of systemic steroids; E78.00 Pure hypercholesterolemia, unspecified; N18.31 Chronic kidney disease, stage 3a; F41.8 Other specified anxiety disorders; Z87.891 Personal history of nicotine dependence; Z88.1 Allergy status to other antibiotic agents; Z88.7 Allergy status to serum and vaccine; Z88.8 Allergy status to other drugs, medicaments and biological substances
CPT/HCPCS: 36415; 58558; 85027; 86850; 86900; 86901; 88305; J0131; J1100; J1885; J2250; J2405; J2765; J3010

== ENCOUNTER → 2021-03-17 | Outpatient (CLI) | payer BC ==
[~2021-03-17] MED LIST changes: -LR 1,000 ML IV ONE
[2021-03-17 11:24] LABS: HEMATOCRIT 40.7 % (36.0-47.0); HEMOGLOBIN 13.6 g/dl (12.0-15.5); MEAN CORPUSCULAR HEMOGLOBIN 30.4 pg (27.0-33.0); MEAN CORPUSCULAR HGB CONC 33.4 g/dl (32.0-36.5); MEAN CORPUSCULAR VOLUME 91.1 fl (80.0-96.0); PLATELET COUNT, AUTOMATED 293 10^3/uL (150-450); RED BLOOD COUNT 4.47 10^6/uL (4.00-5.40); WHITE BLOOD COUNT 6.9 10^3/uL (4.0-10.0)
[2021-03-17 11:43] LABS: BLOOD UREA NITROGEN 21 MG/DL (7-18); CALCIUM LEVEL 9.1 MG/DL (8.5-10.1); CARBON DIOXIDE LEVEL 28 MEQ/L (21-32); CHLORIDE LEVEL 105 MEQ/L (98-107); CREATININE FOR GFR 0.93 MG/DL (0.55-1.30); GLOMERULAR FILTRATION RATE > 60.0 (>51); GLUCOSE, FASTING 104 MG/DL (70-100); POTASSIUM SERUM 4.5 MEQ/L (3.5-5.1); SODIUM LEVEL 140 MEQ/L (136-145)
[2021-03-17 11:55] LABS: CREATININE, URINE 44.7 MG/DL; MALB URINE SIEMENS < 5.0 MG/L; MAU/CREAT RATIO 11.1 MCG/MG (0.0-30.0)
== END ==
LOC: M PLALAB 07:48
PROVIDERS: ATTEND Family Medicine
DX: N18.31 Chronic kidney disease, stage 3a (principal)

== ENCOUNTER 2021-04-15 08:42 | Observation (INO) | payer BC ==
[~2021-04-15] VITALS: Ht 147.3 cm; Wt 79.0 kg
--- OUTSIDE RECORDS SUMMARY | 2021-04-15 08:50 | CCD | Continuity of Care Document ---
Author Author [facility]arita [facility] Organization Unknown Address [address] [place] [address] Phone [phone] Care Team Providers Care Agricultural Real Estate Agent Name Role Phone Windy Diaz MIESHA AUTM [phone] Problems Active Problems Provider Date Tobacco user Onset: Social History Type Date Description Comments Sex Unknown Tobacco Use Start: Unknown End: Unknown Quit Smoking Status Reviewed: 04/09/21 Quit ETOH Use Denies alcohol use Tobacco Use Start: Unknown Patient is a current smoker, smo kes every day Allergies and adverse reactions Active Allergies Criticality Reaction | Severity Comments Date Celebrex Unable to assess criticality stops bladder 04/11/2008 Zoloft Unable to assess criticality hallucinations 04/11/2008 Eryc Unable to assess criticality rash 04/11/2008 Flexeril Unable to assess criticality stops bladder 04/11/2008 Clindamycin HCL Unable to assess criticality rash 09/28/2008 Hydromax Unable to assess criticality 07/13/2009 Cephalosporins Unable to assess criticality 04/11/2012 Medications Active Medications SIG Qnty Indications Ordering Provide r Date Prednisone 20mg Tablets 1 tablet by mouth twice daily for 5 days 10tabs R21 Iban Rdz JR. 04/09/2021 Benicar Unknown Tylenol Extra Strength 500mg Table ts 2 at 8am prn Unknown Citalopram Hydrobromide 20mg Table ts take one (1) tab daily Unknown Singulair 10mg Tablets 1 by mouth every day Unknown Simvastatin 20mg Tablets take one tablet by mouth every evening Unknown 0 Aspirin 325mg Tablets Unknown Medications Administered in Office Medication SIG Qnty Indications Ordering Provider Date Methylprednisolone Sodium Succinate To 1 25 MG Injection Norberto Fagan Immunizations Description No Information Available Vital Signs Date Vital Result Comment 04/09/2021 5:13pm BP Systolic 168 mmHg BP Diastolic 83 mmHg Heart Rate 56 /min Respiratory Rate 16 /min O2 % BldC Oximetry 97 % Body Temperature 97.8 F Weight 164.00 lb Height 58.5 inches 4'10.50" BMI (Body Mass Index) 33.7 kg/m2 Pain Level 6 08/11/2015 5:39pm BP Systolic 169 mmHg BP Diastolic 87 mmHg Heart Rate 87 /min O2 % BldC Oximetry 98 % Body Temperature 97.5 F Weight 165.00 lb Height 59 inches 4'11" BMI (Body Mass Index) 33.3 kg/m2 Pain Level 6 Results Description No Information Available Procedures Date Code Description Status 04/09/2021 53140 Office/Outpatient New Low MDM 30 -44 Minutes Completed 04/09/2021 55819 Therapeutic, Prophylactic Or Rosmery gnostic Injection Subq/Im Completed Medical Devices Description No Information Available Encounters Type Date Location Provider Dx Diagnosis Office Visit 04/09/2021 11:40a Main Office Norberto Fagan R2 1 Rash and other nonspecific skin eruption Assessments Date Code Description Provider 04/09/2021 R21 Rash and other nonspecific skin eruption Norberto Fagan Plan of Treatment No Information Available Functional Status Description No Information Available Mental Status Description No Information Available Referrals Description No Information Available
--- OUTSIDE RECORDS SUMMARY | 2021-04-15 08:50 | CCD | Continuity of Care Document ---
Author Author [facility] Organization Unknown Address [address] [place] [address] [place] [address] Phone [phone] Care Team Providers Care Demurrage Clerk Name Role Phone Windy Diaz MIESHA AUTM [phone] Problems Active Problems Provider Date Tobacco user [...] Available Procedures Date Code Description Status 04/09/2021 62192 Office/Outpatient New Low MDM 30 -44 Minutes Completed 04/09/2021 66528 Therapeutic, Prophylactic Or Rosmery gnostic Injection Subq/Im [...]
--- OUTSIDE RECORDS SUMMARY | 2021-04-15 08:50 | CCD | Continuity of Care Document ---
Author Author Margarita [facility] P[facility] Organization Unknown Address [address] [place] [address] Phone [phone] Care Team Providers Care Glacing Machine Tender Name Role Phone Windy Diaz MIESHA AUTM [phone] Problems Active Problems Provider Date Tobacco user [...] Available Procedures Date Code Description Status 04/09/2021 23036 Office/Outpatient New Low MDM 30 -44 Minutes Completed 04/09/2021 01866 Therapeutic, Prophylactic Or Rosmery gnostic Injection Subq/Im [...]
--- OUTSIDE RECORDS SUMMARY | 2021-04-15 08:50 | CCD ---
Continuity of Care Document (CCD) Created on: 04/09/2021 Margarita Stahl External Reference #: [id number] : 1960 Sex: Female Author Author Margarita [facility]IGHTOWER P[facility] Organization Unknown Address [address] [place] [address] Phone [phone] Care Team Providers Care Modular Home Crew Member Name Role Phone Windy Diaz MIESHA AUTM [phone] Problems Active Problems Provider Date Tobacco user [...] Available Procedures Date Code Description Status 04/09/2021 30584 Office/Outpatient New Low MDM 30 -44 Minutes Completed 04/09/2021 63537 Therapeutic, Prophylactic Or Rosmery gnostic Injection Subq/Im [...]
--- OUTSIDE RECORDS SUMMARY | 2021-04-15 08:50 | CCD | Continuity of Care Document ---
Author Author Margarita [facility] P[facility] Organization Unknown Address [address] [place] [address] Phone [phone] Care Team Providers Care Lubrication Supervisor Name Role Phone Windy Diaz MIESHA AUTM [phone] Problems Active Problems Provider Date Tobacco user [...] Available Procedures Date Code Description Status 04/09/2021 49993 Office/Outpatient New Low MDM 30 -44 Minutes Completed 04/09/2021 56367 Therapeutic, Prophylactic Or Rosmery gnostic Injection Subq/Im [...]
--- OUTSIDE RECORDS SUMMARY | 2021-04-15 08:50 | CCD ---
Author Author [facility] Organization [facility] [employer] [facility] Address Unknown Phone Unavailable Care Team Providers Care Applied Computer Science Professor Name Role Phone Windy Diaz Unavailable PROBLEMS Type Condition ICD9-CM Code IUI04-JF Code Onset Dates Condition S tatus W/U Status Risk SNOMED Code Notes Problem Anxiety and depression F41.9 Active confirmed 532149639 She is treated with citalopram and her symptoms are palliated. Problem Family history of thyroid disease in mother Z83.49 Active confirmed 305960471 Problem Microscopic colitis K52.89 Active confirmed 687629879 She has a history of diarrhea related to microscopic colitis. She was on prednisone in the past. She was given Lomotil by her head correction officer.started sulfasalazine therapy in 07/2014 but she stopped it and is having no active issues at present. Problem Elevated blood sugar R73.9 Active confirmed 92403487 She has a history of fasting glucose elevations in the 110 to 120 range since 2013. Fasting glucose in January 2016 of 91 with a hemoglobin A1c of 6.5% Problem Nicotine dependence F17.200 Active confirmed 87910785 She is an ongoing smoker who has repeatedly been encouraged to quit smoking and has been prescribed various mechanisms to assist her with cessation of that habit. Problem Gait instability R26.81 Active confirmed 226 26444 Problem Primary osteoarthritis of right foot M19.071 Act dana confirmed 641281917 X-rays were ordered in November 2016. Problem Neurogenic bladder N31.9 Active confirmed 3 96741718 Problem COPD (chronic obstructive pulmonary disease) J44.9 Active confirmed 25569045 She is a prior smoker who yates s a component of COPD. She is no longer followed by her farmer diversified crops. She does not require any controller inhalers at present although she had taken Breo and albuterol in the past. Problem Acute right-sided thoracic back pain M54.6 Act dana confirmed 271172168 Problem GERD (gastroesophageal reflux disease) K21.9 A ctive confirmed 626977346 On PPI in the past but she no longer nee ds it. Problem Hypertension I10 Active confirmed 4779495 3 She is on Benicar, amlodipine and Lasix as needed therapy with reasonable blood pressure control. Problem Allergic rhinitis J30.9 Active confirmed 61 047897 She is on Singulair therapy. Problem Other insomnia G47.09 Active confirmed 05096 2000 Problem Situational anxiety F41.8 Active confirmed 222325908 Problem Glucose intolerance E74.39 Active confirmed 09038488 She has a history of fasting glucose elevations in the 110 to 120 range since 2013. 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 We switched her to Lipitor in 2013 but she did not tolerate it. Her lipids were again elevated in 07/2014 so simvastatin was added--she appears to be taking it, and should do so because of her vascular disease risk factors. This is managed by her usual provider. Problem Decreased hearing of both ears H91.93 Active confir med 403054470 Problem Bilateral hand swelling M79.89 Active confirmed 529794353 Problem Edema R60.9 Active confirmed 724022160 Her edema is controlled with Lasix as needed. Problem Leg weakness, bilateral R29.898 Active confirmed 0404849 Problem Thoracic back pain M54.6 Active confirmed 2 77069381 Has had prior surgery and a long history of pain. NSAID therapy ?caused microscopic colitis. PT in the past ineffective. She had a trial of sulfasalazine in 2014 which apparently did not provide much benefit. Problem Lumbar back pain M54.5 Active confirmed 279 839339 Problem Lumbosacral radiculopathy due to degenerative polina int disease of spine M47.27 Active confirmed 089355879 Problem History of nicotine dependence Z87.891 Active confi rmed 776919692 Quit an apptroximately 40 pack year smoking history at age 59. She is a candidate for low-dose lung cancer screening with a CT scan annually and this is ordered as of October 2020. Problem Abnormal uterine bleeding (AUB) N93.9 Active confirmed 22070476471429 Problem Chronic obstructive pulmonar y disease with acute lower respiratory infection J44.0 Active confirmed 206313439627838 Problem Postmenopausal bleeding N95.0 Active confirmed 50529693 Problem BMI 35.0-35.9,adult Z68.35 Active confirmed 869515611 Problem Plantar wart of left foot B07.0 Active confir med [id number] Problem Body mass index 34.0-34.9, adult Z68.34 Active confirmed 621192287 Problem Microscopic colitis, unspecified microscopic colitis type K52.839 Active confirmed 541660860 Problem Vaginal bleeding N93.9 Active confirmed 289 497194 Problem Neuromuscular dysfunction of bladder, unspecified N31.9 Active confirmed 645793000 ALLERGIES Allergen (clinical drug ingredient) Drug/Non Drug Allergy do cumented on EMR Reaction Allergy Type Onset Date Status pregabalin Lyrica([facility] Code:[address]-88) Angioedema Drug Allergy Active erythromycin Erythromycin Base(ND Code:[address]-61) Hives Donato g Allergy Active celecoxib Celebrex(ND Code:[address]-12) bladder problems Drug All ergy Active gabapentin Gabapentin(ND Code:[address]-11) refuses made her ugly Drug Allergy Active Flexeril bladder problems Drug Allergy Active meloxicam Mobic(ND Code:[address]-33) microscopic colitis Drug All ergy Active sertraline Zoloft(ND Code:[address]-90) hallucinations Drug Allergy Active clindamycin Clindamycin HCl(ND Code:[address]-64) Hives Drug A llergy Active ENCOUNTERS from 1960 to 2021-04-10 Encounter Location Date Provider Diagnosis [place] [id number] [facility] [phone] [place] [address] Mar, Windy Goinsage IMMUNIZATIONS Vaccine Route Administration Date Status COVID-19 dose #1 given elsewhere Unspecified Unknown Jun 12, 2020 Administered Rocephin 1gm Ceftriaxone IM Intramuscular Jul 16, 2016 Admini stered Depo-Medrol 80mg Methylprednisolone Acetate IM Intramuscular Jun 28, 2016 Administered Pneumococcal Adult 0.5mL Pneumovax 23 Unknown Jul 21 13 Administered Pneumococcal 0.5mL Prevnar 13 IM Intramuscular August 28, 2015 A dministered Influenza 6mo & up Fluzone Unknown Mar 28, 2017 Admin istered COVID-19 dose #2 given elsewhere Unspecified Unknown Jul 03, 2020 Administered Influenza 6mo & up Fluzone Unknown Mar 31, 2016 Admin istered Influenza 6mo & up Fluzone Unknown Aug 18, 2015 Other s Influenza 6mo & up Fluzone Unknown Apr 16, 2013 Admin istered SOCIAL HISTORY Tobacco Use: Social History Observation Description Date Details (start date - stop date) Former Smoker Sex Assigned At : Social History Observation Description Sex Assigned At Unknown Audit Question Answer Notes Total Score: 0 Interpretation: Alcohol Education Language: Question Answer Notes Languages spoken: Croatian Jew: Question Answer Notes Jew [facility] Question Answer Notes Total Score: 0 Interpretation: No problems reported Tobacco Use: Question Answer Notes Are you a: former smoker Quit 11/2018 REASON FOR REFERRAL No Information VITAL SIGNS No information MEDICATIONS Medication SIG (Take, Route, Frequency, Duration) Notes Start Da te End Date Status Lasix 40 MG 1 tablet Orally Once a day as needed prn Active Olmesartan Medoxomil 40 MG TAKE ONE TABLET BY MOUTH DAILY for 90 Active Amlodipine Besylate 5 MG 1 tablet Orally Once a day Jun Not-Taking Montelukast Sodium 10 MG 1 tablet in the evening Orally Once a day for 90 days Active predniSONE 10 MG 1 tablet Orally as directed 4 tabs x 3 days 3 tabs x 3 days 2 tabs x 3 days 1 tab x 3 days for 12 days Nov, Not-Taking Colestipol HCl 1 GM 2 tablets Orally three times daily for 15 days Not-Taking Simvastatin 20 MG 1 tablet in the evening Orally Once a day Active Citalopram Hydrobromide 40 mg 1 tablet Orally Once a day Active Aspir-81 81 MG 1 tablet Orally Once a day Active Multiple Vitamins - 1 tablet Orally Once a day Not-Taking NexIUM 40 MG 1 capsule Orally Once a day as needed for 90 days Not-Taking PROCEDURES No Information RESULTS No Results REASON FOR VISIT rash MEDICAL (GENERAL) HISTORY Type Description Date Medical History hypertension Medical History edema questionable cor pulmonale Medical History COPD Medical History microscopic colitis Medical History hypercholesterolemia Medical History anxiety depression used to b e treated at [facility] Medical History thoracic back pain 23 years ago [facility] Medical History cervical spine surgery [address] [place] [address] [facility] Medical History nausea/GERD Medical History colonoscopy 01/05/2012 Dr. Young Medical History 09/29/2016 exercise SPECT nu clear stress test, LVEF 69% angina with stress absent, arrhythmia during stress absent study is considered probably normal Medical History Family history of heart dise ase in female family member before age 65 Surgical History Ovarian cystectomy with appendectomy 02/23 Surgical History section 08/17/1988 Surgical History Thoracic discectomy 08/17/1989 Surgical History Cervical laminectomy 08/17/2004 Surgical History Bilateral ptosis repair-Dr. Hernandez 2020 Surgical History Myosure, uterine polyp, Endometrial cure ttage 02/27/2021 Hospitalization History for the above reasons Hospitalization History [facility] er dehydration 01/23/18 Hospitalization History [facility] er ecoli uti 01/25/18 Hospitalization History [facility] complex migraine with ri ght facial hemisensory changes 03/15-03/17/2018 Hospitalization History [facility] ER 03/03/20 Hospitalization History [facility] [place] 03/04/20 Hospitalization History [facility] x2 unknown Hospitalization History [facility] ER 04/08/20 Hospitalization History colonoscopy, biopsies indica ldea microscopic colitis with features of cholangitis colitis. Dr. Atkinson 2007 Hospitalization History colonoscopy, biopsy ascendin g and descending colon benign nondysplastic and non-inflamed colonic mucosa 08/28/2009 Goals Section No Information Health Concerns No Information MEDICAL EQUIPMENT No Information MENTAL STATUS No Information FUNCTIONAL STATUS No Information ASSESSMENTS No Information PLAN OF TREATMENT Next Appt Details Provider Name:Windy Chau Emily, 07:30:00 AM, [address] [facility], , [place], [address], Insurance Providers Payer Name Payer Address Payer Phone Insured Name Patient Relati onship to Insured Coverage Start Date Coverage End Date [facility] [id number] [facility] [id number] [address] [address] self 2014
--- OUTSIDE RECORDS SUMMARY | 2021-04-15 08:50 | CCD ---
Author Author [facility] [employer] Organization [facility] [employer] Address Unknown Phone Unavailable Care Team Providers Care Metal Wire Coating Operator Name Role Phone Aleah Terrell Unavailable PROBLEMS Type Condition ICD9-CM Code VYT19-SU Code Onset Dates Condition S tatus W/U Status Risk SNOMED Code Notes Problem Anxiety and depression F41.9 Active confirmed [id number] She is treated with citalopram and her symptoms are palliated. Problem Family history of thyroid disease in mother Z83.49 Active confirmed 715382614 Problem Microscopic colitis K52.89 Active confirmed 029254078 She has a history of diarrhea related to microscopic colitis. She was on prednisone in the past. She was given Lomotil by her picker machine operator.started sulfasalazine therapy in 07/2014 but she stopped it and is having no active issues at present. Problem Elevated blood sugar R73.9 Active confirmed 62274808 She has a history of fasting glucose elevations in the 110 to 120 range since 2013. Fasting glucose in January 2016 of 91 with a hemoglobin A1c of 6.5% Problem Nicotine dependence F17.200 Active confirmed 29085402 She is an ongoing smoker who has repeatedly been encouraged to quit smoking and has been prescribed various mechanisms to assist her with cessation of that habit. Problem Gait instability R26.81 Active confirmed 226 16317 Problem Primary osteoarthritis of right foot M19.071 Act dana confirmed 632584365 X-rays were ordered in November 2016. Problem Neurogenic bladder N31.9 Active confirmed 3 73423593 Problem COPD (chronic obstructive pulmonary disease) J44.9 Active confirmed 65374125 She is a prior smoker who yates s a component of COPD. She is no longer followed by her gun barrel finisher. She does not require any controller inhalers at present although she had taken Breo and albuterol in the past. Problem Acute right-sided thoracic back pain M54.6 Act dana confirmed 798102342 Problem GERD (gastroesophageal reflux disease) K21.9 A ctive confirmed 813405456 On PPI in the past but she no longer nee ds it. Problem Hypertension I10 Active confirmed 9944545 3 She is on Benicar, amlodipine and Lasix as needed therapy with reasonable blood pressure control. Problem Allergic rhinitis J30.9 Active confirmed 61 409870 She is on Singulair therapy. Problem Other insomnia G47.09 Active confirmed 93466 2000 Problem Situational anxiety F41.8 Active confirmed 468364055 Problem Glucose intolerance E74.39 Active confirmed 43698013 She has a history of fasting glucose elevations in the 110 to 120 range since 2013. 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 Active confirmed 93013048 Problem Other chronic pain G89.29 Active confirmed 8 9696264 Problem Hypercholesterolemia E78.00 Active confirmed 63713163 She was on Livalo with optimal lipid [...] of both ears H91.93 Active confir med 556376474 Problem Bilateral hand swelling M79.89 Active confirmed 104004821 Problem Edema R60.9 Active confirmed 292834066 Her edema is controlled with Lasix as needed. Problem Leg weakness, bilateral R29.898 Active confirmed 1924915 Problem Thoracic back pain M54.6 Active confirmed 2 04032381 Has had prior surgery and a long history of pain. NSAID therapy ?caused microscopic colitis. PT in the past ineffective. She had a trial of sulfasalazine in 2014 which apparently did not provide much benefit. Problem Lumbar back pain M54.5 Active confirmed 279 439312 Problem Lumbosacral radiculopathy due to degenerative polina int disease of spine M47.27 Active confirmed 600759809 Problem History of nicotine dependence Z87.891 Active confi rmed 300842820 Quit an apptroximately 40 pack year smoking history at age 59. She is a candidate for low-dose lung cancer screening with a CT scan annually and this is ordered as of October 2020. Problem Abnormal uterine bleeding (AUB) N93.9 Active confirmed 43425307562441 Problem Chronic obstructive pulmonar y disease with acute lower respiratory infection J44.0 Active confirmed 280093886533699 Problem Postmenopausal bleeding N95.0 Active confirmed 42368358 Problem BMI 35.0-35.9,adult Z68.35 Active confirmed 556176582 Problem Plantar wart of left foot B07.0 Active confir med [id number] Problem Body mass index 34.0-34.9, adult Z68.34 Active confirmed 594493465 Problem Microscopic colitis, unspecified microscopic colitis type K52.839 Active confirmed 761674217 Problem Vaginal bleeding N93.9 Active confirmed 289 625973 Problem Neuromuscular dysfunction of bladder, unspecified N31.9 Active confirmed 936351971 ALLERGIES Allergen (clinical drug ingredient) Drug/Non Drug Allergy do cumented on EMR Reaction Allergy Type Onset Date Status pregabalin Lyrica([facility] Code:[address]-37) Angioedema Drug Allergy Active erythromycin Erythromycin Base([facility] Code:[address]-52) Hives Donato g Allergy Active celecoxib Celebrex([facility] Code:[address]-11) bladder problems Drug All ergy Active gabapentin Gabapentin([facility] Code:[address]-17) refuses made her ugly Drug Allergy Active Flexeril bladder problems Drug Allergy Active meloxicam Mobic([facility] Code:[address]-98) microscopic colitis Drug All ergy Active sertraline Zoloft([facility] Code:[address]-15) hallucinations Drug Allergy Active clindamycin Clindamycin HCl([facility] Code:[address]-26) Hives Drug A llergy Active ENCOUNTERS from 1962 to 2021-04-13 Encounter Location Date Provider Diagnosis [facility] [address] [phone] [place] [address] Feb, Aleah Terrell Aftercare following surgery of the genitourinary system Z48.816 IMMUNIZATIONS Vaccine Route Administration Date Status COVID-19 [...] Education Language: Question Answer Notes Languages spoken: Latvian Cheondoism: Question Answer Notes Cheondoism 05 [facility] Drug and Alcohol Question Answer Notes Total Score: 0 Interpretation: No problems reported Tobacco Use: Question Answer Notes Are you a: former smoker Quit 11/2018 REASON FOR REFERRAL No Information VITAL SIGNS Weight 170 lbs Feb, Height 59 in Feb, BMI 34.33 kg/m2 Feb, Blood pressure systolic 118 mm Hg Feb, Blood pressure diastolic 68 mm Hg Feb, MEDICATIONS Medication SIG (Take, Route, Frequency, Duration) [...] Information RESULTS No Results REASON FOR VISIT 2 WK POST OP MEDICAL (GENERAL) HISTORY Type Description Date Medical History hypertension Medical History edema questionable cor pulmonale Medical History COPD Medical History microscopic colitis Medical History hypercholesterolemia Medical History anxiety depression used to b e treated at [facility] Medical History thoracic back pain 23 years ago [facility] Medical History cervical spine surgery 2004 [place] at [facility] Medical History nausea/GERD Medical History colonoscopy 01/05/2012 [...] History for the above reasons Hospitalization History [facility] er dehydration 01/23/18 Hospitalization History [facility] er ecoli uti 01/25/18 Hospitalization History [facility] complex migraine with ri ght facial hemisensory changes 03/15-03/17/2018 Hospitalization History [facility] ER 03/03/20 Hospitalization History [facility] [place] 03/04/20 Hospitalization History [facility] x2 unknown Hospitalization History [facility] ER 04/08/20 Hospitalization History colonoscopy, biopsies indica leda microscopic colitis with features of cholangitis colitis. Dr. Atkinson 2007 Hospitalization History colonoscopy, biopsy ascendin g and descending colon benign nondysplastic and non-inflamed colonic mucosa 08/28/2009 Goals Section No Information Health Concerns No Information MEDICAL EQUIPMENT No Information MENTAL STATUS No Information FUNCTIONAL STATUS No Information ASSESSMENTS Encounter Date Diagnosis Assessment Notes Treatment Notes Treatm ent Clinical Notes Feb, Aftercare following surgery of the genitourinary system (ICD-10 - Z48.816) PLAN OF TREATMENT Next Appt Details prn Reason: Provider Name:Windy Diaz, 07:30:00 AM, [address], , [place], [address], Insurance Providers Payer Name Payer Address Payer Phone Insured Name Patient Relati onship to Insured Coverage Start Date Coverage End Date [employer] [place] [id number] [facility] [id number] [address] self 2014
--- OUTSIDE RECORDS SUMMARY | 2021-04-15 08:51 | CCD ---
Author Author [facility] Organization [facility] Address Unknown Phone Unavailable Care Team Providers Care Fire Tender Name Role Phone Aleah Terrell Unavailable PROBLEMS Type Condition ICD9-CM Code WRY38-DF Code Onset Dates Condition S tatus W/U Status Risk SNOMED Code Notes Problem Hypertension I10 Active confirmed 5919336 3 She is on Benicar, amlodipine and Lasix as needed therapy with reasonable blood pressure control. Problem Edema R60.9 Active confirmed 290636410 Her edema is controlled with Lasix as needed. Problem Anxiety and depression F41.9 Active confirmed 046039182 She is treated with citalopram and her symptoms are palliated. Problem COPD (chronic obstructive pulmonary disease) J44.9 Active confirmed 63453138 She is a prior smoker who yates s a component of COPD. She is no longer followed by her vitreo retinal surgeon. She does not require any controller inhalers at present although she had taken Breo and albuterol in the past. Problem GERD (gastroesophageal reflux disease) K21.9 A ctive confirmed 746517908 On PPI in the past but she no longer nee ds it. Problem Elevated blood sugar R73.9 Active confirmed 92958219 She has a history of fasting glucose elevations in the 110 to 120 range since 2013. Fasting glucose in January 2016 of 91 with a hemoglobin A1c of 6.5% Problem Nicotine dependence F17.200 Active confirmed 80601333 She is an ongoing smoker who has repeatedly been encouraged to quit smoking and has been prescribed various mechanisms to assist her with cessation of that habit. Problem Lumbar back pain M54.5 Active confirmed 279 236970 Problem Family history of thyroid disease in mother Z83.49 Active confirmed 037334359 Problem Neurogenic bladder N31.9 Active confirmed 3 82703178 Problem Thoracic back pain M54.6 Active confirmed 2 43564974 Has had prior surgery and a long history of pain. NSAID therapy ?caused microscopic colitis. PT in the past ineffective. She had a trial of sulfasalazine in 2014 which apparently did not provide much benefit. Problem Allergic rhinitis J30.9 Active confirmed 61 510814 She is on Singulair therapy. Problem Microscopic colitis K52.89 Active confirmed 116905195 She has a history of diarrhea related to microscopic colitis. She was on prednisone in the past. She was given Lomotil by her physical education professor.started sulfasalazine therapy in 07/2014 but she stopped it and is having no active issues at present. Problem Plantar wart of left foot B07.0 Active confir med [id number] Problem Chronic obstructive pulmonar y disease with acute lower respiratory infection J44.0 Active confirmed 898025516320544 Problem Other insomnia G47.09 Active confirmed 26580 2000 Problem Situational anxiety F41.8 Active confirmed 660009386 Problem Glucose intolerance E74.39 Active confirmed 44226000 She has a history of fasting glucose elevations in the 110 to 120 range since 2013. 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 Active confirmed 68855291 Problem Other chronic pain G89.29 Active confirmed 8 9056187 Problem Hypercholesterolemia E78.00 Active confirmed 43596498 She was on Livalo with optimal lipid [...] of both ears H91.93 Active confir med 958300987 Problem Bilateral hand swelling M79.89 Active confirmed 763759580 Problem Acute right-sided thoracic back pain M54.6 Act dana confirmed 272385360 Problem Leg weakness, bilateral R29.898 Active confirmed 6690410 Problem Vaginal bleeding N93.9 Active confirmed 289 624658 Problem Gait instability R26.81 Active confirmed 226 29169 Problem Neuromuscular dysfunction of bladder, unspecified N31.9 Active confirmed 299419497 Problem Primary osteoarthritis of right foot M19.071 Act dana confirmed 440347705 X-rays were ordered in November 2016. Problem BMI 35.0-35.9,adult Z68.35 Active confirmed 737512234 Problem Lumbosacral radiculopathy due to degenerative polina int disease of spine M47.27 Active confirmed 795060862 Problem History of nicotine dependence Z87.891 Active confi rmed 409342854 Quit an apptroximately 40 pack year smoking history at age 59. She is a candidate for low-dose lung cancer screening with a CT scan annually and this is ordered as of October 2020. Problem Body mass index 34.0-34.9, adult Z68.34 Active confirmed 152885308 Problem Microscopic colitis, unspecified microscopic colitis type K52.839 Active confirmed 537395955 ALLERGIES Allergen (clinical drug ingredient) Drug/Non Drug Allergy do cumented on EMR Reaction Allergy Type Onset Date Status pregabalin Lyrica([facility] Code:[address]-29) Angioedema Drug Allergy Active erythromycin Erythromycin Base([facility] Code:[address]-08) Hives Donato g Allergy Active celecoxib Celebrex([facility] Code:[address]-58) bladder problems Drug All ergy Active gabapentin Gabapentin([facility] Code:[address]-03) refuses made her ugly Drug Allergy Active Flexeril bladder problems Drug Allergy Active meloxicam Mobic([facility] Code:[address]-21) microscopic colitis Drug All ergy Active sertraline Zoloft([facility] Code:[address]-32) hallucinations Drug Allergy Active clindamycin Clindamycin HCl([facility] Code:[address]-45) Hives Drug A llergy Active ENCOUNTERS from 1960 to 2021-02-11 Encounter Location Date Provider Diagnosis [facility] [address] [phone] [place] [address] Jan, Aleah Terrell IMMUNIZATIONS Vaccine Route Administration Date Status COVID-19 [...] Education Language: Question Answer Notes Languages spoken: Kiswahili Druze: Question Answer Notes Druze 05 Tenriism Sexual Hx: Question Answer Notes Had sex in the last 12 months (vaginal, oral, or anal)? No Have you ever had an STD? No Drug and Alcohol Question Answer Notes Total Score: 0 Interpretation: No problems reported Alcohol Screening: Question Answer Notes Did you have a drink containing alcohol in the past year? Ye s Points 1 Interpretation Negative How often did you have six or more drinks on one occas ion in the past year? Never (0 points) How many drinks did you have on a typica l day when you were drinking in the past year? 1 or 2 (0 points) How often did you have a drink containing alcohol in t he past year? Monthly or less (1 point) BMI Care Goal Follow-Up Question Answer Notes Above Normal BMI Follow-Up Weight monitoring Tobacco Use: Question Answer Notes Are you a: former smoker Quit 11/2018 REASON FOR REFERRAL No Information VITAL SIGNS No information MEDICATIONS Medication SIG (Take, Route, Frequency, Duration) Notes Start Da te End Date Status Citalopram Hydrobromide 40 mg 1 tablet Orally Once a day for 90 day(s ) Active Multiple Vitamins - 1 tablet Orally Once a day Active Lasix 40 MG 1 tablet Orally Once a day as needed Active Amlodipine Besylate 5 MG 1 tablet Orally Once a day for 30 day(s ) Jun, Active NexIUM 40 MG 1 capsule Orally Once a day as needed for 90 days Not-Taking Aspir-81 81 MG 1 tablet Orally Once a day Active Colestipol HCl 1 GM 2 tablets Orally three times daily for 15 days Active Simvastatin 20 MG 1 tablet in the evening Orally Once a day Active Montelukast Sodium 10 MG 1 tablet in the evening Orally Once a day for 90 days Active Benicar 40mg 1 tablet Orally Once a day for 90 day(s) Active predniSONE 10 MG 1 tablet Orally as directed 4 tabs x 3 days 3 tabs x 3 days 2 tabs x 3 days 1 tab x 3 days for 12 days Nov, Not-Taking PROCEDURES No Information RESULTS No Results REASON FOR VISIT SURGERY 02/27/21 AUTH MEDICAL (GENERAL) HISTORY Type Description Date Medical History hypertension Medical History edema questionable cor pulmonale Medical History COPD Medical History microscopic colitis Medical History hypercholesterolemia Medical History anxiety depression used to b e treated at [facility] Medical History thoracic back pain 23 years ago [facility] Medical History cervical spine surgery 2004 [place] at [facility] Medical History nausea/GERD Medical History colonoscopy [...] Surgical History Bilateral ptosis repair-Dr. Hernandez 2020 Hospitalization History for the above reasons Hospitalization History [facility] er dehydration 01/23/18 Hospitalization History [facility] er ecoli uti 01/25/18 Hospitalization History [facility] complex migraine with ri ght facial hemisensory changes 03/15-03/17/2018 Hospitalization History [facility] ER 03/03/20 Hospitalization History [facility] [place] 03/04/20 Hospitalization History [facility] x2 unknown Hospitalization History [facility] ER 04/08/20 Hospitalization History colonoscopy, biopsies [...] PLAN OF TREATMENT Next Appt Details Provider Name:Aleah Terrell, 2021-02-19 0 9:00:00 AM, [address], , [place], [address], Provider Name:Aleah Terrell, 2021-03-16 1 0:20:00 AM, [address] [place] [address], , [place], [address], Provider Name:Windy Diaz, 07:30:00 AM, [address] [facility] [address], , [place], [address], Insurance Providers Payer Name Payer Address Payer Phone Insured Name Patient Relati onship to Insured Coverage Start Date Coverage End Date [employer] [place] [facility] [id number] [facility] [id number] [address] self 2014
--- OUTSIDE RECORDS SUMMARY | 2021-04-15 08:51 | CCD ---
Author Author [employer] Organization [facility] [employer] Address Unknown Phone Unavailable Care Team Providers Care Computer Science Instructor Name Role Phone Windy Diaz Unavailable PROBLEMS Type Condition ICD9-CM Code OZF60-HI Code Onset Dates Condition S tatus W/U Status Risk SNOMED Code Notes Problem Anxiety and depression F41.9 Active confirmed [id number] She is treated with citalopram and her symptoms are palliated. Problem Family history of thyroid disease in mother Z83.49 Active confirmed 450458369 Problem Microscopic colitis K52.89 Active confirmed 995777020 She has a history of diarrhea related to microscopic colitis. She was on prednisone in the past. She was given Lomotil by her carriage setter.started sulfasalazine therapy in 07/2014 but she stopped it and is having no active issues at present. Problem Elevated blood sugar R73.9 Active confirmed 56129056 She has a history of fasting glucose elevations in the 110 to 120 range since 2013. Fasting glucose in January 2016 of 91 with a hemoglobin A1c of 6.5% Problem Nicotine dependence F17.200 Active confirmed 92292243 She is an ongoing smoker who has repeatedly been encouraged to quit smoking and has been prescribed various mechanisms to assist her with cessation of that habit. Problem Gait instability R26.81 Active confirmed 226 00028 Problem Primary osteoarthritis of right foot M19.071 Act dana confirmed 121844539 X-rays were ordered in November 2016. Problem Neurogenic bladder N31.9 Active confirmed 3 46459639 Problem COPD (chronic obstructive pulmonary disease) J44.9 Active confirmed 37040553 She is a prior smoker who yates s a component of COPD. She is no longer followed by her chip person. She does not require any controller inhalers at present although she had taken Breo and albuterol in the past. Problem Acute right-sided thoracic back pain M54.6 Act dana confirmed 359089823 Problem GERD (gastroesophageal reflux disease) K21.9 A ctive confirmed 167815209 On PPI in the past but she no longer nee ds it. Problem Hypertension I10 Active confirmed 6428330 3 She is on Benicar, amlodipine and Lasix as needed therapy with reasonable blood pressure control. Problem Allergic rhinitis J30.9 Active confirmed 61 646790 She is on Singulair therapy. Problem Other insomnia G47.09 Active confirmed 41176 2000 Problem Situational anxiety F41.8 Active confirmed 563379584 Problem Glucose intolerance E74.39 Active confirmed 54859318 She has a history of fasting glucose elevations in the 110 to 120 range since 2013. 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 Problem Leg weakness, bilateral R29.898 Active confirmed 1800815 Problem Thoracic back pain M54.6 Active confirmed 2 71770454 Has had prior surgery and a long history of pain. NSAID therapy ?caused microscopic colitis. PT in the past ineffective. She had a trial of sulfasalazine in 2014 which apparently did not provide much benefit. Problem Lumbar back pain M54.5 Active confirmed 279 736397 Problem Lumbosacral radiculopathy due to degenerative polina int disease of spine M47.27 Active confirmed 207133383 Problem History of nicotine dependence Z87.891 Active confi rmed 836880587 Quit an apptroximately 40 pack year smoking history at age 59. She is a candidate for low-dose lung cancer screening with a CT scan annually and this is ordered as of October 2020. Problem Abnormal uterine bleeding (AUB) N93.9 Active confirmed 35819929919239 Problem Chronic obstructive pulmonar y disease with acute lower respiratory infection J44.0 Active confirmed 745648411946800 Problem Postmenopausal bleeding N95.0 Active confirmed 57233517 Problem BMI 35.0-35.9,adult Z68.35 Active confirmed 929279300 Problem Plantar wart of left foot B07.0 Active confir med [id number] Problem Body mass index 34.0-34.9, adult Z68.34 Active confirmed 336044205 Problem Microscopic colitis, unspecified microscopic colitis type K52.839 Active confirmed 378578175 Problem Vaginal bleeding N93.9 Active confirmed 289 454305 Problem Neuromuscular dysfunction of bladder, unspecified N31.9 Active confirmed 820881899 ALLERGIES Allergen (clinical drug ingredient) Drug/Non Drug Allergy do cumented on EMR Reaction Allergy Type Onset Date Status pregabalin Lyrica([facility] Code:[address]-20) Angioedema Drug Allergy Active erythromycin Erythromycin Base(ND Code:[address]-45) Hives Donato g Allergy Active celecoxib Celebrex(ND Code:[address]-33) bladder problems Drug All ergy Active gabapentin Gabapentin(ND Code:[address]-33) refuses made her ugly Drug Allergy Active Flexeril bladder problems Drug Allergy Active meloxicam Mobic(ND Code:[address]-63) microscopic colitis Drug All ergy Active sertraline Zoloft(ND Code:[address]-21) hallucinations Drug Allergy Active clindamycin Clindamycin HCl(ND Code:[address]-32) Hives Drug A llergy Active ENCOUNTERS from 1962 to 2021-03-19 Encounter Location Date Provider Diagnosis [place] [address] [facility] [phone] [place] [address] Feb, Windy Servage Allergic rhinitis J30.9 IMMUNIZATIONS Vaccine Route Administration Date Status COVID-19 [...] Education Language: Question Answer Notes Languages spoken: Indonesian Jainism: Question Answer Notes Jainism 05 Buddhist Drug and Alcohol Question Answer Notes Total [...] Information RESULTS No Results REASON FOR VISIT refill MEDICAL (GENERAL) HISTORY Type Description Date Medical History hypertension Medical History edema questionable cor pulmonale Medical History COPD Medical History microscopic colitis Medical History hypercholesterolemia Medical History anxiety depression used to b e [email or web address] Medical History thoracic back pain 23 years ago [facility] Medical History cervical spine surgery 2004 [place] [facility] Medical History nausea/GERD Medical History colonoscopy [...] History for the above reasons Hospitalization History [facility] er dehydration 01/23/18 Hospitalization History [facility] er ecoli uti 01/25/18 Hospitalization History [facility] complex migraine with ri ght facial hemisensory changes 03/15-03/17/2018 Hospitalization History [facility] ER 03/03/20 Hospitalization History [facility] [place] 03/04/20 Hospitalization History [facility] x2 unknown Hospitalization History [facility] ER 04/08/20 Hospitalization History colonoscopy, [...] Treatment Notes Treatm ent Clinical Notes Feb, Allergic rhinitis (ICD-10 - J30.9) PLAN OF TREATMENT Next Appt Details Provider Name:Windy Diaz, 07:30:00 AM, [address] [facility], , [place], [address], Insurance Providers Payer Name Payer Address Payer Phone Insured Name Patient Relati onship to Insured Coverage Start Date Coverage End Date BCBS OF [facility] [id number] [facility] [id number] [address] [facility] 2014
--- OUTSIDE RECORDS SUMMARY | 2021-04-15 08:51 | CCD ---
Author Author [employer] [employer] Organization [facility] [employer] Address Unknown Phone Unavailable Care Team Providers Care Director Of Casework Department Name Role Phone Windy Diaz Unavailable PROBLEMS Type Condition ICD9-CM Code UEU29-PY Code Onset Dates Condition S tatus W/U Status Risk SNOMED Code Notes Problem Anxiety and depression F41.9 Active confirmed 514548756 She is treated with citalopram and her symptoms are palliated. Problem Family history of thyroid disease in mother Z83.49 Active confirmed 615066577 Problem Microscopic colitis K52.89 Active confirmed 754144337 She has a history of diarrhea related to microscopic colitis. She was on prednisone in the past. She was given Lomotil by her salesperson stereo equipment.started sulfasalazine therapy in 07/2014 but she stopped it and is having no active issues at present. Problem Elevated blood sugar R73.9 Active confirmed 74729767 She has a history of fasting glucose elevations in the 110 to 120 range since 2013. Fasting glucose in January 2016 of 91 with a hemoglobin A1c of 6.5% Problem Nicotine dependence F17.200 Active confirmed 43572099 She is an ongoing smoker who has repeatedly been encouraged to quit smoking and has been prescribed various mechanisms to assist her with cessation of that habit. Problem Gait instability R26.81 Active confirmed 226 40614 Problem Primary osteoarthritis of right foot M19.071 Act dana confirmed 994590352 X-rays were ordered in November 2016. Problem Neurogenic bladder N31.9 Active confirmed 3 89981935 Problem COPD (chronic obstructive pulmonary disease) J44.9 Active confirmed 19951469 She is a prior smoker who yates s a component of COPD. She is no longer followed by her electrician research. She does not require any controller inhalers at present although she had taken Breo and albuterol in the past. Problem Acute right-sided thoracic back pain M54.6 Act dana confirmed 005918210 Problem GERD (gastroesophageal reflux disease) K21.9 A ctive confirmed 735523207 On PPI in the past but she no longer nee ds it. Problem Hypertension I10 Active confirmed 4407771 3 She is on Benicar, amlodipine and Lasix as needed therapy with reasonable blood pressure control. Problem Allergic rhinitis J30.9 Active confirmed 61 915423 She is on Singulair therapy. Problem Other insomnia G47.09 Active confirmed 12021 2000 Problem Situational anxiety F41.8 Active confirmed 711845707 Problem Glucose intolerance E74.39 Active confirmed 43791530 She has a history of fasting glucose elevations in the 110 to 120 range since 2013. 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 Active confirmed 13924073 Problem Other chronic pain G89.29 Active confirmed 8 7869621 Problem Hypercholesterolemia E78.00 Active confirmed 02288508 She was on Livalo with optimal lipid [...] of both ears H91.93 Active confir med 906514228 Problem Bilateral hand swelling M79.89 Active confirmed 213858794 Problem Edema R60.9 Active confirmed 205867388 Her edema is controlled with Lasix as needed. Problem Leg weakness, bilateral R29.898 Active confirmed 2859225 Problem Thoracic back pain M54.6 Active confirmed 2 60151031 Has had prior surgery and a long history of pain. NSAID therapy ?caused microscopic colitis. PT in the past ineffective. She had a trial of sulfasalazine in 2014 which apparently did not provide much benefit. Problem Lumbar back pain M54.5 Active confirmed 279 221343 Problem Lumbosacral radiculopathy due to degenerative polina int disease of spine M47.27 Active confirmed 526175329 Problem History of nicotine dependence Z87.891 Active confi rmed 584585804 Quit an apptroximately 40 pack year smoking history at age 59. She is a candidate for low-dose lung cancer screening with a CT scan annually and this is ordered as of October 2020. Problem Abnormal uterine bleeding (AUB) N93.9 Active confirmed 05709140525938 Problem Chronic obstructive pulmonar y disease with acute lower respiratory infection J44.0 Active confirmed 436994680548013 Problem Postmenopausal bleeding N95.0 Active confirmed 67021166 Problem BMI 35.0-35.9,adult Z68.35 Active confirmed 110080223 Problem Plantar wart of left foot B07.0 Active confir med 55098264255965907 Problem Body mass index 34.0-34.9, adult Z68.34 Active confirmed 408121774 Problem Microscopic colitis, unspecified microscopic colitis type K52.839 Active confirmed 867998374 Problem Vaginal bleeding N93.9 Active confirmed 289 977530 Problem Neuromuscular dysfunction of bladder, unspecified N31.9 Active confirmed 750487410 ALLERGIES Allergen (clinical drug ingredient) Drug/Non Drug Allergy do cumented on EMR Reaction Allergy Type Onset Date Status pregabalin Lyrica([facility] Code:[address]-46) Angioedema Drug Allergy Active erythromycin Erythromycin Base(ND Code:[address]-05) Hives Donato g Allergy Active celecoxib Celebrex(ND Code:[address]-78) bladder problems Drug All ergy Active gabapentin Gabapentin(ND Code:[address]-48) refuses made her ugly Drug Allergy Active Flexeril bladder problems Drug Allergy Active meloxicam Mobic(ND Code:[address]-96) microscopic colitis Drug All ergy Active sertraline Zoloft(ND Code:[address]-72) hallucinations Drug Allergy Active clindamycin Clindamycin HCl(ND Code:[address]-44) Hives Drug A llergy Active ENCOUNTERS from 1962 to 2021-02-27 Encounter Location Date Provider Diagnosis [place] [id number] [facility] [phone] [place] [address] 07 Feb, 2021 Windy Servage IMMUNIZATIONS Vaccine Route Administration Date Status COVID-19 [...] Education Language: Question Answer Notes Languages spoken: Belarusian Roman Catholic: Question Answer Notes Roman Catholic 05 Lutheran Sexual Hx: Question Answer Notes Had sex [...] Notes Start Da te End Date Status NexIUM 40 MG 1 capsule Orally Once a day as needed for 90 days Not-Taking Lasix 40 MG 1 tablet Orally Once a day as needed Active Aspir-81 81 MG 1 tablet Orally Once a day Active Olmesartan Medoxomil 40 MG TAKE ONE TABLET BY MOUTH DAILY for 90 Active Simvastatin 20 MG 1 tablet in the evening Orally Once a day Active Multiple Vitamins - 1 tablet Orally Once a day Not-Taking Montelukast Sodium 10 MG 1 tablet in the evening Orally Once a day Active predniSONE 10 MG 1 tablet Orally as directed 4 tabs x 3 days 3 tabs x 3 days 2 tabs x 3 days 1 tab x 3 days for 12 days Nov, Not-Taking Amlodipine Besylate 5 MG 1 tablet Orally Once a day Jun Active Colestipol HCl 1 GM 2 tablets Orally three times daily for 15 days Not-Taking Citalopram Hydrobromide 40 mg 1 tablet Orally Once a day Active PROCEDURES No Information RESULTS No Results REASON FOR VISIT would like a call [facility] MEDICAL (GENERAL) HISTORY Type Description Date Medical History hypertension Medical History edema questionable cor pulmonale Medical History COPD Medical History microscopic colitis Medical History hypercholesterolemia Medical History anxiety depression used to b e treated at [facility] Medical History thoracic back pain 23 years ago [facility] Medical History cervical spine surgery 2004 [place] at [facility] Medical History nausea/GERD Medical History colonoscopy [...] History for the above reasons Hospitalization History [facility] er dehydration 01/23/18 Hospitalization History [facility] er ecoli uti 01/25/18 Hospitalization History [facility] complex migraine with ri ght facial hemisensory changes 03/15-03/17/2018 Hospitalization History [facility] ER 03/03/20 Hospitalization History [facility] [place] 03/04/20 Hospitalization History [facility] x2 unknown Hospitalization History [facility] ER 04/08/20 Hospitalization History colonoscopy, biopsies indica leda microscopic colitis with features of cholangitis colitis. Dr. Atkinson 2007 Hospitalization History colonoscopy, biopsy ascendin g and descending colon benign nondysplastic and non-inflamed colonic mucosa 08/28/2009 Goals Section No Information Health Concerns No Information MEDICAL EQUIPMENT No Information MENTAL STATUS No Information FUNCTIONAL STATUS No Information ASSESSMENTS No Information PLAN OF TREATMENT Medication Medication Name Sig Start Date Stop Date Simvastatin 20 MG 1 tablet in the evening Orally Once a day Amlodipine Besylate 5 MG 1 tablet Orally Once a day Jun, Montelukast Sodium 10 MG 1 tablet in the evening Orally Once a d ay Citalopram Hydrobromide 40 mg 1 tablet Orally Once a day Olmesartan Medoxomil 40 MG TAKE ONE TABLET BY MOUTH DAILY for 90 Lasix 40 MG 1 tablet Orally Once a day as needed Next Appt Details Provider Name:Aleah Terrell, 2021-02-27 0 1:20:00 PM, [address] [place] [address], , [place], [address], Provider Name:Aleah Mcleann, 2021-03-16 1 0:20:00 AM, [address] [place] [address], , [place], [address], Provider Name:Windy Diaz, 07:30:00 AM, [address] [place] [address], , [place], [address], Insurance Providers Payer Name Payer Address Payer Phone Insured Name Patient Relati onship to Insured Coverage Start Date Coverage End Date [facility] [id number] [facility] [id number] [address] [address] self 2014
--- OUTSIDE RECORDS SUMMARY | 2021-04-15 08:51 | CCD ---
Author Author [facility] Organization [facility] Address Unknown Phone Unavailable Care Team Providers Care Scooter Mechanic Name Role Phone Windy Diaz Unavailable PROBLEMS Type Condition ICD9-CM Code [id number] Code Onset Dates Condition S tatus W/U Status Risk SNOMED Code Notes Problem Anxiety and depression F41.9 Active confirmed [id number] She is treated with citalopram and her symptoms are palliated. Problem GERD (gastroesophageal reflux disease) K21.9 A ctive confirmed [id number] On PPI in the past but she no longer nee ds it. Problem Edema R60.9 Active confirmed 347901814 Her edema is controlled with Lasix as needed. Problem Nicotine dependence F17.200 Active confirmed 07047444 She is an ongoing smoker who has repeatedly been encouraged to quit smoking and has been prescribed various mechanisms to assist her with cessation of that habit. Problem COPD (chronic obstructive pulmonary disease) J44.9 Active confirmed 05840590 She is a prior smoker who yates s a component of COPD. She is no longer followed by her biomedical technician. She does not require any controller inhalers at present although she had taken Breo and albuterol in the past. Problem Primary osteoarthritis of right foot M19.071 Act dana confirmed 918466203 X-rays were ordered in November 2016. Problem Elevated blood sugar R73.9 Active confirmed 46329456 She has a history of fasting glucose elevations in the 110 to 120 range since 2013. Fasting glucose in January 2016 of 91 with a hemoglobin A1c of 6.5% Problem Leg weakness, bilateral R29.898 Active confirmed 8412983 Problem Microscopic colitis K52.89 Active confirmed 153663816 She has a history of diarrhea related to microscopic colitis. She was on prednisone in the past. She was given Lomotil by her electronic repair troubleshooter.started sulfasalazine therapy in 07/2014 but she stopped it and is having no active issues at present. Problem Lumbar back pain M54.5 Active confirmed 279 807641 Problem Family history of thyroid disease in mother Z83.49 Active confirmed 780192311 Problem Hypertension I10 Active confirmed 8163951 3 She is on Benicar, amlodipine and Lasix as needed therapy with reasonable blood pressure control. Problem Allergic rhinitis J30.9 Active confirmed 61 712254 She is on Singulair therapy. 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 Fasting glucose in January 2016 of 91 with a hemoglobin A1c of 6.5% Problem Neurogenic bladder N31.9 Active confirmed 3 82410221 Problem Thoracic back pain M54.6 Active confirmed 2 11747036 Has had prior surgery and a long history of pain. NSAID therapy ?caused microscopic colitis. PT in the past ineffective. She had a trial of sulfasalazine in 2014 which apparently did not provide much benefit. Problem Other chronic pain G89.29 Active confirmed 8 9077180 Problem Hypercholesterolemia E78.00 Active confirmed 41723873 She was on Livalo with optimal lipid control as of July 2013. We switched her to Lipitor in 2013 but she did not tolerate it. Her lipids were again elevated in 07/2014 so simvastatin was added--she appears to be taking it, and should do so because of her vascular disease risk factors. This is managed by her usual provider. Problem Bilateral hand swelling M79.89 Active confirmed 220970745 Problem Acute right-sided thoracic back pain M54.6 Act dana confirmed 419197653 Problem Lumbosacral radiculopathy due to degenerative polina int disease of spine M47.27 Active confirmed 767111530 Problem Neuromuscular dysfunction of bladder, unspecified N31.9 Active confirmed 555996966 Problem BMI 35.0-35.9,adult Z68.35 Active confirmed 540103202 Problem Abnormal uterine bleeding (AUB) N93.9 Active confirmed 06720879601282 Problem Gait instability R26.81 Active confirmed 226 03913 Problem Chronic obstructive pulmonar y disease with acute lower respiratory infection J44.0 Active confirmed 491866674407248 Problem History of nicotine dependence Z87.891 Active confi rmed 964443258 Quit an apptroximately 40 pack year smoking history at age 59. She is a candidate for low-dose lung cancer screening with a CT scan annually and this is ordered as of October 2020. Problem Body mass index 34.0-34.9, adult Z68.34 Active confirmed 866249164 Problem Microscopic colitis, unspecified microscopic colitis type K52.839 Active confirmed 669258457 Problem Vaginal bleeding N93.9 Active confirmed 289 006695 ALLERGIES Allergen (clinical drug ingredient) Drug/Non Drug Allergy do cumented on EMR Reaction Allergy Type Onset Date Status pregabalin Lyrica([facility] Code:[address]-93) Angioedema Drug Allergy Active erythromycin Erythromycin Base(ND Code:[address]-75) Hives Donato g Allergy Active celecoxib Celebrex(ND Code:[address]-89) bladder problems Drug All ergy Active gabapentin Gabapentin(ND Code:[address]-13) refuses made her ugly Drug Allergy Active Flexeril bladder problems Drug Allergy Active meloxicam Mobic(NDC Code:[address]-42) microscopic colitis Drug All ergy Active sertraline Zoloft(ND Code:[address]-04) hallucinations Drug Allergy Active clindamycin Clindamycin HCl(ND Code:[address]-93) Hives Drug A llergy Active ENCOUNTERS from 1962 to 2021-02-24 Encounter Location Date Provider Diagnosis [address] [phone] [place] [address] Feb, Windy Diaz Situational anxiety F41.8 IMMUNIZATIONS Vaccine Route Administration Date Status Depo-Medrol 80mg Methylprednisolone Acetate IM Intramuscular Jun 28, 2016 Administered Pneumococcal 0.5mL Prevnar 13 IM Intramuscular August 28, 2015 A dministered COVID-19 dose #2 given elsewhere Unspecified Unknown Jul 03, 2020 Administered COVID-19 dose #1 given elsewhere Unspecified Unknown Jun 12, 2020 Administered Pneumococcal Adult 0.5mL Pneumovax 23 Unknown Jul 21 13 Administered Influenza 6mo & up Fluzone Unknown Mar 28, 2017 Admin istered Rocephin 1gm Ceftriaxone IM Intramuscular Jul 16, 2016 Admini stered Influenza 6mo & up Fluzone Unknown Mar [...] Education Language: Question Answer Notes Languages spoken: Setswana Zoroastrian: Question Answer Notes Zoroastrian 05 Moravian Sexual Hx: Question Answer Notes Had sex [...] Notes Start Da te End Date Status Simvastatin 20 MG 1 tablet in the evening Orally Once a day Active Amlodipine Besylate 5 MG 1 tablet Orally Once a day for 30 day(s ) Jun, Active Lasix 40 MG 1 tablet Orally Once a day as needed Active Citalopram Hydrobromide 40 mg 1 tablet Orally Once a day for 90 day(s ) Active predniSONE 10 MG 1 tablet Orally as directed 4 tabs x 3 days 3 tabs x 3 days 2 tabs x 3 days 1 tab x 3 days for 12 days Nov, Not-Taking NexIUM 40 MG 1 capsule Orally Once a day as needed for 90 days Not-Taking Multiple Vitamins - 1 tablet Orally Once a day Active Benicar 40mg 1 tablet Orally Once a day for 90 day(s) Active Montelukast Sodium 10 MG 1 tablet in the evening Orally Once a day for 90 days Active Aspir-81 81 MG 1 tablet Orally Once a day Active Colestipol HCl 1 GM 2 tablets Orally three times daily for 15 days Active PROCEDURES No Information RESULTS No Results REASON FOR VISIT refill MEDICAL (GENERAL) HISTORY Type Description Date Medical History hypertension Medical History edema questionable cor pulmonale Medical History COPD Medical History microscopic colitis Medical History hypercholesterolemia Medical History [facility] Medical History thoracic back pain 23 years ago [facility] Medical History cervical spine surgery 2004 [place] at [facility] Medical History nausea/GERD Medical History colonoscopy 01/05/2012 [...] History for the above reasons Hospitalization History [facility] er dehydration 01/23/18 Hospitalization History [facility] er ecoli uti 01/25/18 Hospitalization History [facility] complex migraine with ri ght facial hemisensory changes 03/15-03/17/2018 Hospitalization History [facility] ER 03/03/20 Hospitalization History [facility] [place] 03/04/20 Hospitalization History [facility] [facility] unknown Hospitalization History [facility] ER 04/08/20 Hospitalization History colonoscopy, biopsies [...] Treatment Notes Treatm ent Clinical Notes Feb, Situational anxiety (ICD-10 - F41.8) PLAN OF TREATMENT Medication Medication Name Sig Start Date Stop Date Citalopram Hydrobromide 40 mg 1 tablet Orally Once a day for 90 day(s) Next Appt Details Provider Name:Aleah Terrell, 2021-02-27 0 1:20:00 PM, [address] [place] [address], , [place], [address], Provider Name:Aleah Mcleann, 2021-03-16 1 0:20:00 AM, [address] [place] [address], , [place], [address], Provider Name:Windy Diaz, 07:30:00 AM, [address] [place] [address], , [place], [address], Insurance Providers Payer Name Payer Address Payer Phone Insured Name Patient Relati onship to Insured Coverage Start Date Coverage End Date [facility] [id number] [facility] [address] [place] self 2014
--- OUTSIDE RECORDS SUMMARY | 2021-04-15 08:51 | CCD ---
Author Author [facility] Organization [facility] Address Unknown Phone Unavailable Care Team Providers Care Defect Cutter Name Role Phone Cecily Johansen Unavailable PROBLEMS Type Condition ICD9-CM Code [id number] Code Onset Dates Condition S tatus W/U Status Risk SNOMED Code Notes Problem Anxiety and depression F41.9 Active confirmed [id number] She is treated with citalopram and her symptoms are palliated. Problem Family history of thyroid disease in mother Z83.49 Active confirmed 416036080 Problem Microscopic colitis K52.89 Active confirmed 210825660 She has a history of diarrhea related to microscopic colitis. She was on prednisone in the past. She was given Lomotil by her physician executive.started sulfasalazine therapy in 07/2014 but she stopped it and is having no active issues at present. Problem Elevated blood sugar R73.9 Active confirmed 86460600 She has a history of fasting glucose elevations in the 110 to 120 range since 2013. Fasting glucose in January 2016 of 91 with a hemoglobin A1c of 6.5% Problem Nicotine dependence F17.200 Active confirmed 14558925 She is an ongoing smoker who has repeatedly been encouraged to quit smoking and has been prescribed various mechanisms to assist her with cessation of that habit. Problem Gait instability R26.81 Active confirmed 226 91098 Problem Primary osteoarthritis of right foot M19.071 Act dana confirmed 719304346 X-rays were ordered in November 2016. Problem Neurogenic bladder N31.9 Active confirmed 3 07432819 Problem COPD (chronic obstructive pulmonary disease) J44.9 Active confirmed 31228240 She is a prior smoker who yates s a component of COPD. She is no longer followed by her packaging designer. She does not require any controller inhalers at present although she had taken Breo and albuterol in the past. Problem Acute right-sided thoracic back pain M54.6 Act dana confirmed 410337227 Problem GERD (gastroesophageal reflux disease) K21.9 A ctive confirmed 980577550 On PPI in the past but she no longer nee ds it. Problem Hypertension I10 Active confirmed 9717434 3 She is on Benicar, amlodipine and Lasix as needed therapy with reasonable blood pressure control. Problem Allergic rhinitis J30.9 Active confirmed 61 882311 She is on Singulair therapy. Problem Other insomnia G47.09 Active confirmed 06955 2000 Problem Situational anxiety F41.8 Active confirmed 838464475 Problem Glucose intolerance E74.39 Active confirmed 08609680 She has a history of fasting glucose elevations in the 110 to 120 range since 2013. 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 Problem Leg weakness, bilateral R29.898 Active confirmed 2782603 Problem Thoracic back pain M54.6 Active confirmed 2 68471020 Has had prior surgery and a long history of pain. NSAID therapy ?caused microscopic colitis. PT in the past ineffective. She had a trial of sulfasalazine in 2014 which apparently did not provide much benefit. Problem Lumbar back pain M54.5 Active confirmed 279 096948 Problem Lumbosacral radiculopathy due to degenerative polina int disease of spine M47.27 Active confirmed 590035892 Problem History of nicotine dependence Z87.891 Active confi rmed 049597356 Quit an apptroximately 40 pack year smoking history at age 59. She is a candidate for low-dose lung cancer screening with a CT scan annually and this is ordered as of October 2020. Problem Abnormal uterine bleeding (AUB) N93.9 Active confirmed 09356934143572 Problem Chronic obstructive pulmonar y disease with acute lower respiratory infection J44.0 Active confirmed 003905941031185 Problem Postmenopausal bleeding N95.0 Active confirmed 09092763 Problem BMI 35.0-35.9,adult Z68.35 Active confirmed 048254195 Problem Plantar wart of left foot B07.0 Active confir med 95900796734190109 Problem Body mass index 34.0-34.9, adult Z68.34 Active confirmed 938170207 Problem Microscopic colitis, unspecified microscopic colitis type K52.839 Active confirmed 126175620 Problem Vaginal bleeding N93.9 Active confirmed 289 577319 Problem Neuromuscular dysfunction of bladder, unspecified N31.9 Active confirmed 222209220 ALLERGIES Allergen (clinical drug ingredient) Drug/Non Drug Allergy do cumented on EMR Reaction Allergy Type Onset Date Status pregabalin Lyrica([facility] Code:[address]-16) Angioedema Drug Allergy Active erythromycin Erythromycin Base(ND Code:[address]-28) Hives Donato g Allergy Active celecoxib Celebrex(ND Code:[address]-60) bladder problems Drug All ergy Active gabapentin Gabapentin(ND Code:[address]-94) refuses made her ugly Drug Allergy Active Flexeril bladder problems Drug Allergy Active meloxicam Mobic(ND Code:[address]-60) microscopic colitis Drug All ergy Active sertraline Zoloft(ND Code:[address]-87) hallucinations Drug Allergy Active clindamycin Clindamycin HCl(ND Code:[address]-85) Hives Drug A llergy Active ENCOUNTERS from 1962 to 2021-03-18 Encounter Location Date Provider Diagnosis [place] [address] [facility] [phone] [place] [address] Feb, Cecily Cutlervaleria IMMUNIZATIONS Vaccine Route Administration Date Status COVID-19 [...] Education Language: Question Answer Notes Languages spoken: Irish Orthodoxy: Question Answer Notes Orthodoxy 05 Muslim Drug and Alcohol Question Answer Notes Total [...] Information RESULTS No Results REASON FOR VISIT Lab results MEDICAL (GENERAL) HISTORY Type Description Date Medical History hypertension Medical History edema questionable cor pulmonale Medical History COPD Medical History microscopic colitis Medical History hypercholesterolemia Medical History anxiety depression used to b e treated at [facility] Medical History thoracic back pain 23 years ago [facility] Medical History cervical spine surgery 2004 [place] at [facility] Medical History nausea/GERD Medical History colonoscopy 01/05/2012 [...] History for the above reasons Hospitalization History [facility] er dehydration 01/23/18 Hospitalization History [facility] er ecoli uti 01/25/18 Hospitalization History [facility] complex migraine with ri ght facial hemisensory changes 03/15-03/17/2018 Hospitalization History [facility] ER 03/03/20 Hospitalization History [facility] [place] 03/04/20 Hospitalization History [facility] [facility] unknown Hospitalization History [facility] ER 04/08/20 Hospitalization History colonoscopy, [...] Provider Name:Windy Chau Emily, 07:30:00 AM, [address] [facility], , [place], [address], Insurance Providers Payer Name Payer Address Payer Phone Insured Name Patient Relati onship to Insured Coverage Start Date Coverage End Date BCBS OF [facility] [id number] [facility] [id number] [address] [address] self 2014
--- OUTSIDE RECORDS SUMMARY | 2021-04-15 08:51 | CCD ---
Author Author [facility] Organization [facility] Address Unknown Phone Unavailable Care Team Providers Care Washing Machine Operator Name Role Phone Aleah Terrell Unavailable PROBLEMS Type Condition ICD9-CM Code [id number] Code Onset Dates Condition S tatus W/U Status Risk SNOMED Code Notes Problem Anxiety and depression F41.9 Active confirmed [id number] She is treated with citalopram and her symptoms are palliated. Problem GERD (gastroesophageal reflux disease) K21.9 A ctive confirmed 352948101 On PPI in the past but she no longer nee ds it. Problem Edema R60.9 Active confirmed 122099288 Her edema is controlled with Lasix as needed. Problem Nicotine dependence F17.200 Active confirmed 22541361 She is an ongoing smoker who has repeatedly been encouraged to quit smoking and has been prescribed various mechanisms to assist her with cessation of that habit. Problem COPD (chronic obstructive pulmonary disease) J44.9 Active confirmed 73029229 She is a prior smoker who yates s a component of COPD. She is no longer followed by her housekeeping coordinator. She does not require any controller inhalers at present although she had taken Breo and albuterol in the past. Problem Primary osteoarthritis of right foot M19.071 Act dana confirmed 462975758 X-rays were ordered in November 2016. Problem Elevated blood sugar R73.9 Active confirmed 68593101 She has a history of fasting glucose elevations in the 110 to 120 range since 2013. Fasting glucose in January 2016 of 91 with a hemoglobin A1c of 6.5% Problem Leg weakness, bilateral R29.898 Active confirmed 2117869 Problem Microscopic colitis K52.89 Active confirmed 023874455 She has a history of diarrhea related to microscopic colitis. She was on prednisone in the past. She was given Lomotil by her rotary dump operator.started sulfasalazine therapy in 07/2014 but she stopped it and is having no active issues at present. Problem Lumbar back pain M54.5 Active confirmed 279 585397 Problem Family history of thyroid disease in mother Z83.49 Active confirmed 681935100 Problem Hypertension I10 Active confirmed 9306385 3 She is on Benicar, amlodipine and Lasix as needed therapy with reasonable blood pressure control. Problem Allergic rhinitis J30.9 Active confirmed 61 945797 She is on Singulair therapy. 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 Fasting glucose in January 2016 of 91 with a hemoglobin A1c of 6.5% Problem Neurogenic bladder N31.9 Active confirmed 3 87646545 Problem Thoracic back pain M54.6 Active confirmed 2 03207636 Has had prior surgery and a long history of pain. NSAID therapy ?caused microscopic colitis. PT in the past ineffective. She had a trial of sulfasalazine in 2014 which apparently did not provide much benefit. Problem Other chronic pain G89.29 Active confirmed 8 0131846 Problem Hypercholesterolemia E78.00 Active confirmed 89004984 She was on Livalo with optimal lipid [...] Problem Bilateral hand swelling M79.89 Active confirmed 239452453 Problem Acute right-sided thoracic back pain M54.6 Act dana confirmed 862800279 Problem Lumbosacral radiculopathy due to degenerative polina int disease of spine M47.27 Active confirmed 783686463 Problem Neuromuscular dysfunction of bladder, unspecified N31.9 Active confirmed 606182073 Problem BMI 35.0-35.9,adult Z68.35 Active confirmed 834150448 Problem Abnormal uterine bleeding (AUB) N93.9 Active confirmed 67565732550430 Problem Gait instability R26.81 Active confirmed 226 14283 Problem Chronic obstructive pulmonar y disease with acute lower respiratory infection J44.0 Active confirmed 609042921474563 Problem History of nicotine dependence Z87.891 Active confi rmed 498691578 Quit an apptroximately 40 pack year smoking history at age 59. She is a candidate for low-dose lung cancer screening with a CT scan annually and this is ordered as of October 2020. Problem Body mass index 34.0-34.9, adult Z68.34 Active confirmed 676303546 Problem Microscopic colitis, unspecified microscopic colitis type K52.839 Active confirmed 179455827 Problem Vaginal bleeding N93.9 Active confirmed 289 168740 ALLERGIES Allergen (clinical drug ingredient) Drug/Non Drug Allergy do cumented on EMR Reaction Allergy Type Onset Date Status pregabalin Lyrica([facility] [place] Code:[address]-36) Angioedema Drug Allergy Active erythromycin Erythromycin Base([place] Code:[address]-45) Hives Donato g Allergy Active celecoxib Celebrex([place] Code:[address]-08) bladder problems Drug All ergy Active gabapentin Gabapentin([place] Code:[address]-99) refuses made her ugly Drug Allergy Active Flexeril bladder problems Drug Allergy Active meloxicam Mobic([place] Code:[address]-64) microscopic colitis Drug All ergy Active sertraline Zoloft([place] Code:[address]-44) hallucinations Drug Allergy Active clindamycin Clindamycin HCl([place] Code:[address]-06) Hives Drug A llergy Active ENCOUNTERS from 1962 to 2021-02-15 Encounter Location Date Provider Diagnosis [facility] [address] [facility] [phone] [place] [address] 16 Jan, 2021 [facility] Abnormal uterine ble eding (AUB) N93.9 IMMUNIZATIONS Vaccine Route Administration Date Status COVID-19 [...] Education Language: Question Answer Notes Languages spoken: Wolof Bahai: Question Answer Notes Bahai 05 [employer] Sexual Hx: Question Answer Notes Had sex [...] FOR REFERRAL No Information VITAL SIGNS Weight 168.8 lbs Jan, Height 59 in Jan, BMI 34.09 kg/m2 Jan, Blood pressure systolic 140 mm Hg Jan, Blood pressure diastolic 78 mm Hg Jan, MEDICATIONS Medication SIG (Take, Route, Frequency, Duration) [...] Information RESULTS No Results REASON FOR VISIT AUB referral from [facility] MEDICAL (GENERAL) HISTORY Type Description Date Medical History hypertension Medical History edema questionable cor pulmonale Medical History COPD Medical History microscopic colitis Medical History hypercholesterolemia Medical History anxiety depression used to b e treated at [facility] Medical History thoracic back pain 23 years ago [facility] Medical History cervical spine surgery 2004 [place] at [facility] Medical History nausea/GERD Medical History colonoscopy [...] for the above reasons Hospitalization History [facility] dehydration 01/23/18 Hospitalization History [facility] er ecoli uti 01/25/18 Hospitalization History [facility] complex migraine with ri ght facial hemisensory changes 03/15-03/17/2018 Hospitalization History [facility] ER 03/03/20 Hospitalization History [facility] [place] 03/04/20 Hospitalization History [facility]/[place] x2 unknown Hospitalization History [facility] ER 04/08/20 Hospitalization History [...] Notes Treatment Notes Treatm ent Clinical Notes Jan, Abnormal uterine bleeding (AUB) (ICD-10 - N93.9) plan for hysteroscopy D&C possible Myosure PLAN OF TREATMENT Treatment Notes Assessment Notes Clinical Notes Abnormal uterine bleeding (AUB) plan for hysteroscopy D&C possible Myosure Next Appt Details Provider Name:Aleah Terrell, 2021-02-27 0 1:20:00 PM, [address] [place] [address], , [place], [address], Provider Name:Aleah Terrell, 2021-03-16 1 0:20:00 AM, [address] [place] [address], , [place], [address], Provider Name:Windy Cheek, 07:30:00 AM, [address] [place] [address], , [place], [address], Insurance Providers Payer Name Payer Address Payer Phone Insured Name Patient Relati onship to Insured Coverage Start Date Coverage End Date [facility] [id number] [facility] [id number] DELMA DAWN self 2014
--- OUTSIDE RECORDS SUMMARY | 2021-04-15 08:51 | CCD ---
Author Author [facility] Organization [facility] Address Unknown Phone Unavailable Care Team Providers Care Student Services Coordinator Name Role Phone Aleah Terrell Unavailable PROBLEMS Type Condition ICD9-CM Code [id number] Code Onset Dates Condition S tatus W/U Status Risk SNOMED Code Notes Problem Hypertension I10 Active confirmed 6387599 3 She is on Benicar, amlodipine and Lasix as needed therapy with reasonable blood pressure control. Problem Edema R60.9 Active confirmed 160907434 Her edema is controlled with Lasix as needed. Problem Anxiety and depression F41.9 Active confirmed 286031953 She is treated with citalopram and her symptoms are palliated. Problem COPD (chronic obstructive pulmonary disease) J44.9 Active confirmed 80233708 She is a prior smoker who yates s a component of COPD. She is no longer followed by her dramatic art teacher. She does not require any controller inhalers at present although she had taken Breo and albuterol in the past. Problem GERD (gastroesophageal reflux disease) K21.9 A ctive confirmed 932061611 On PPI in the past but she no longer nee ds it. Problem Elevated blood sugar R73.9 Active confirmed 48041860 She has a history of fasting glucose elevations in the 110 to 120 range since 2013. Fasting glucose in January 2016 of 91 with a hemoglobin A1c of 6.5% Problem Nicotine dependence F17.200 Active confirmed 51374258 She is an ongoing smoker who has repeatedly been encouraged to quit smoking and has been prescribed various mechanisms to assist her with cessation of that habit. Problem Lumbar back pain M54.5 Active confirmed 279 220653 Problem Family history of thyroid disease in mother Z83.49 Active confirmed 819361730 Problem Neurogenic bladder N31.9 Active confirmed 3 36420772 Problem Thoracic back pain M54.6 Active confirmed 2 08542726 Has had prior surgery and a long history of pain. NSAID therapy ?caused microscopic colitis. PT in the past ineffective. She had a trial of sulfasalazine in 2014 which apparently did not provide much benefit. Problem Allergic rhinitis J30.9 Active confirmed 61 658797 She is on Singulair therapy. Problem Microscopic colitis K52.89 Active confirmed 676909730 She has a history of diarrhea related to microscopic colitis. She was on prednisone in the past. She was given Lomotil by her miner placer.started sulfasalazine therapy in 07/2014 but she stopped it and is having no active issues at present. Problem Plantar wart of left foot B07.0 Active confir med [id number] Problem Chronic obstructive pulmonar y disease with acute lower respiratory infection J44.0 Active confirmed 202606478155355 Problem Other insomnia G47.09 Active confirmed 09382 2000 Problem Situational anxiety F41.8 Active confirmed 162551839 Problem Glucose intolerance E74.39 Active confirmed 73790962 She has a history of fasting glucose elevations in the 110 to 120 range since 2013. 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 Active confirmed 28722794 Problem Other chronic pain G89.29 Active confirmed 8 1991193 Problem Hypercholesterolemia E78.00 Active confirmed 51016393 She was on Livalo with optimal lipid [...] of both ears H91.93 Active confir med 978833064 Problem Bilateral hand swelling M79.89 Active confirmed 642568618 Problem Acute right-sided thoracic back pain M54.6 Act dana confirmed 548373142 Problem Leg weakness, bilateral R29.898 Active confirmed 6371777 Problem Vaginal bleeding N93.9 Active confirmed 289 976007 Problem Gait instability R26.81 Active confirmed 226 33753 Problem Neuromuscular dysfunction of bladder, unspecified N31.9 Active confirmed 215871035 Problem Primary osteoarthritis of right foot M19.071 Act dana confirmed 361933202 X-rays were ordered in November 2016. Problem BMI 35.0-35.9,adult Z68.35 Active confirmed 888076715 Problem Lumbosacral radiculopathy due to degenerative polina int disease of spine M47.27 Active confirmed 648521476 Problem History of nicotine dependence Z87.891 Active confi rmed 497763368 Quit an apptroximately 40 pack year smoking history at age 59. She is a candidate for low-dose lung cancer screening with a CT scan annually and this is ordered as of October 2020. Problem Body mass index 34.0-34.9, adult Z68.34 Active confirmed 556020022 Problem Microscopic colitis, unspecified microscopic colitis type K52.839 Active confirmed 475896914 ALLERGIES Allergen (clinical drug ingredient) Drug/Non Drug Allergy do cumented on EMR Reaction Allergy Type Onset Date Status pregabalin Lyrica([facility] Code:[address]-24) Angioedema Drug Allergy Active erythromycin Erythromycin Base([facility] Code:[address]-66) Hives Donato g Allergy Active celecoxib Celebrex([facility] Code:[address]-42) bladder problems Drug All ergy Active gabapentin Gabapentin([facility] Code:[address]-64) refuses made her ugly Drug Allergy Active Flexeril bladder problems Drug Allergy Active meloxicam Mobic([facility] Code:[address]-65) microscopic colitis Drug All ergy Active sertraline Zoloft([facility] Code:[address]-42) hallucinations Drug Allergy Active clindamycin Clindamycin HCl([facility] Code:[address]-52) Hives Drug A llergy Active ENCOUNTERS from 1960 to 2021-02-13 Encounter Location Date Provider Diagnosis [facility] [address] [facility] [phone] [place] [address] Jan, Aleah Terrell IMMUNIZATIONS Vaccine Route Administration [...] Language: Question Answer Notes Languages spoken: Kiswahili Scientologist: Question Answer Notes Scientologist 05 Advent Sexual Hx: Question Answer Notes Had sex [...] Information RESULTS No Results REASON FOR VISIT OUT OF WORK MEDICAL (GENERAL) HISTORY Type Description Date Medical History hypertension Medical History edema questionable cor pulmonale Medical History COPD Medical History microscopic colitis Medical History hypercholesterolemia Medical History anxiety depression used to b e treated at [facility] Medical History thoracic back pain 23 years ago [facility] Medical History cervical spine surgery 2004 [place] at [facility] Medical History nausea/GERD Medical History colonoscopy [...] History for the above reasons Hospitalization History [facility] er dehydration 01/23/18 Hospitalization History [facility] er ecoli uti 01/25/18 Hospitalization History [facility] complex migraine with ri ght facial hemisensory changes 03/15-03/17/2018 Hospitalization History [facility] ER 03/03/20 Hospitalization History [facility] [place] 03/04/20 Hospitalization History [facility] x2 unknown Hospitalization History [facility] ER 04/08/20 Hospitalization History colonoscopy, [...] TREATMENT Next Appt Details Provider Name:Aleah Terrell, 2021-02-27 0 1:20:00 PM, [address] [facility], , [place], [address], Provider Name:Aleah Terrell, 2021-03-16 1 0:20:00 AM, [address] [place] [address], , [place], [address], Provider Name:Windy Diaz, 07:30:00 AM, [address] [facility], , [place], [address], Insurance Providers Payer Name Payer Address Payer Phone Insured Name Patient Relati onship to Insured Coverage Start Date Coverage End Date BCBS OF [place] [facility] [id number] [facility] [id number] DELMA DAWN self 2014
--- OUTSIDE RECORDS SUMMARY | 2021-04-15 08:51 | CCD ---
Author Author [facility] Organization [facility] Address Unknown Phone Unavailable Care Team Providers Care Stock Checker Name Role Phone Cecily Johansen Unavailable PROBLEMS Type Condition ICD9-CM Code [id number] Code Onset Dates Condition S tatus W/U Status Risk SNOMED Code Notes Problem Anxiety and depression F41.9 Active confirmed [id number] She is treated with citalopram and her symptoms are palliated. Problem Family history of thyroid disease in mother Z83.49 Active confirmed [id number] Problem Microscopic colitis K52.89 Active confirmed 333648185 She has a history of diarrhea related to microscopic colitis. She was on prednisone in the past. She was given Lomotil by her vp public relations.started sulfasalazine therapy in 07/2014 but she stopped it and is having no active issues at present. Problem Elevated blood sugar R73.9 Active confirmed 70916198 She has a history of fasting glucose elevations in the 110 to 120 range since 2013. Fasting glucose in January 2016 of 91 with a hemoglobin A1c of 6.5% Problem Nicotine dependence F17.200 Active confirmed 16736754 She is an ongoing smoker who has repeatedly been encouraged to quit smoking and has been prescribed various mechanisms to assist her with cessation of that habit. Problem Gait instability R26.81 Active confirmed 226 54823 Problem Primary osteoarthritis of right foot M19.071 Act dana confirmed 738137646 X-rays were ordered in November 2016. Problem Neurogenic bladder N31.9 Active confirmed 3 05316465 Problem COPD (chronic obstructive pulmonary disease) J44.9 Active confirmed 95072067 She is a prior smoker who yates s a component of COPD. She is no longer followed by her cotton machine operator. She does not require any controller inhalers at present although she had taken Breo and albuterol in the past. Problem Acute right-sided thoracic back pain M54.6 Act dana confirmed 385495921 Problem GERD (gastroesophageal reflux disease) K21.9 A ctive confirmed 287755032 On PPI in the past but she no longer nee ds it. Problem Hypertension I10 Active confirmed 7371364 3 She is on Benicar, amlodipine and Lasix as needed therapy with reasonable blood pressure control. Problem Allergic rhinitis J30.9 Active confirmed 61 645508 She is on Singulair therapy. Problem Other insomnia G47.09 Active confirmed 56971 2000 Problem Situational anxiety F41.8 Active confirmed 661297822 Problem Glucose intolerance E74.39 Active confirmed 55391621 She has a history of fasting glucose elevations in the 110 to 120 range since 2013. 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 Problem Leg weakness, bilateral R29.898 Active confirmed 7654026 Problem Thoracic back pain M54.6 Active confirmed 2 66521657 Has had prior surgery and a long history of pain. NSAID therapy ?caused microscopic colitis. PT in the past ineffective. She had a trial of sulfasalazine in 2014 which apparently did not provide much benefit. Problem Lumbar back pain M54.5 Active confirmed 279 393843 Problem Lumbosacral radiculopathy due to degenerative polina int disease of spine M47.27 Active confirmed 124076583 Problem History of nicotine dependence Z87.891 Active confi rmed 839147382 Quit an apptroximately 40 pack year smoking history at age 59. She is a candidate for low-dose lung cancer screening with a CT scan annually and this is ordered as of October 2020. Problem Abnormal uterine bleeding (AUB) N93.9 Active confirmed [id number] Problem Chronic obstructive pulmonar y disease with acute lower respiratory infection J44.0 Active confirmed 484484245450619 Problem Postmenopausal bleeding N95.0 Active confirmed 87896827 Problem BMI 35.0-35.9,adult Z68.35 Active confirmed 955794347 Problem Plantar wart of left foot B07.0 Active confir med [id number] Problem Body mass index 34.0-34.9, adult Z68.34 Active confirmed 024821584 Problem Microscopic colitis, unspecified microscopic colitis type K52.839 Active confirmed 443328920 Problem Vaginal bleeding N93.9 Active confirmed 289 951285 Problem Neuromuscular dysfunction of bladder, unspecified N31.9 Active confirmed 122253121 ALLERGIES Allergen (clinical drug ingredient) Drug/Non Drug Allergy do cumented on EMR Reaction Allergy Type Onset Date Status pregabalin Lyrica(ND Code:[address]-13) Angioedema Drug Allergy Active erythromycin Erythromycin Base(ND Code:[address]-49) Hives Donato g Allergy Active celecoxib Celebrex(ND Code:[address]-77) bladder problems Drug All ergy Active gabapentin Gabapentin(ND Code:[address]-29) refuses made her ugly Drug Allergy Active Flexeril bladder problems Drug Allergy Active meloxicam Mobic(ND Code:[address]-85) microscopic colitis Drug All ergy Active sertraline Zoloft(ND Code:[address]-33) hallucinations Drug Allergy Active clindamycin Clindamycin HCl(ND Code:[address]-85) Hives Drug A llergy Active ENCOUNTERS from 1960 to 2021-02-26 Encounter Location Date Provider Diagnosis [address] [phone] [place] [address] Feb, Cecily Johansen Pre-op evaluation Z01.818 ; Postmenopausal bleeding N95.0 ; Stage 3a chronic kidney disease N18.31 ; Hypertension I10 ; Hypercholesterolemia E78.00 ; COPD (chronic obstructive pulmonary disease) J44.9 ; Prediabetes R73.03 ; Allergic rhinitis J30.9 and Situational anxiety F41.8 IMMUNIZATIONS Vaccine Route Administration Date Status COVID-19 [...] Education Language: Question Answer Notes Languages spoken: Romansh Congregation: Question Answer Notes Congregation [employer] Sexual Hx: Question Answer Notes Had sex [...] FOR REFERRAL No Information VITAL SIGNS Weight 165 lbs Feb, Height 59 in Feb, BMI 33.32 kg/m2 Feb, Heart Rate 74 /min Feb, Respiratory Rate 18 /min Feb, Temperature 97.3 degrees Fahrenheit Feb, Oximetry 96 Feb, Blood pressure systolic 120 mm Hg Feb, Blood pressure diastolic 70 mm Hg Feb, MEDICATIONS Medication SIG (Take, [...] tablet Orally Once a day Active PROCEDURES from 1960 to 2021-02-26 Procedure Date Ordered Result Body Site ELECTROCARDIOGRAM, COMPLETE EKG 2021-02-26 N/A RESULTS Component Value Reference Range Comprehensive Metabolic Profile (CMP) Reviewed date:02/26/2021 15:05:22 Interpretation: Performing Lab:[facility], [facility] [id number] , ,[place] [address] GLUCOSE, FASTING 82 70-100 BLOOD UREA NITROGEN 19 7-18 CREATININE FOR GFR 1.28 0.55-1.30 GLOMERULAR FILTRATION RATE 45.4 >51 SODIUM LEVEL 140 136-145 POTASSIUM SERUM 4.5 3.5-5.1 CHLORIDE LEVEL 107 98-107 CARBON DIOXIDE LEVEL 29 21-32 CALCIUM LEVEL 9.0 8.5-10.1 AST/SGOT 9 7-37 ALT/SGPT 24 12-78 ALKALINE PHOSPHATASE 96 45-117 BILIRUBIN,TOTAL 0.3 0.2-1.0 TOTAL PROTEIN 6.8 6.4-8.2 ALBUMIN 3.7 3.2-5.2 ALBUMIN/GLOBULIN RATIO 1.2 1.2-2.2 HEMOGLOBIN A1c Reviewed date:02/26/2021 15:05:27 Interpretation: Performing Lab:[facility], [facility] [address] [facility] [id number] , ,[place] [address] HEMOGLOBIN A1c 5.9 ESTIMATED AVERAGE GLUCOSE 123 60-110 REASON FOR VISIT Preoperative evaluation for a D&C and hysteroscopy by Dr. Terrell on 02/27/2021 at [facility]; surgeon's fax [phone], diagnosis code N95.0 MEDICAL (GENERAL) HISTORY Type Description Date Medical History hypertension Medical History edema questionable cor pulmonale Medical History COPD Medical History microscopic colitis Medical History hypercholesterolemia Medical History anxiety depression used to b e treated at [facility] Medical History thoracic back pain 23 years ago [facility] Medical History cervical spine surgery 2004 [place] at [facility] Medical History nausea/GERD Medical History [...] History for the above reasons Hospitalization History [facility] er dehydration 01/23/18 Hospitalization History [facility] er ecoli uti 01/25/18 Hospitalization History [facility] complex migraine with ri ght facial hemisensory changes 03/15-03/17/2018 Hospitalization History [facility] ER 03/03/20 Hospitalization History [facility] [place] 03/04/20 Hospitalization History [facility] x2 unknown Hospitalization History [facility] ER 04/08/20 Hospitalization History colonoscopy, biopsies [...] Treatment Notes Treatm ent Clinical Notes Feb, Pre-op evaluation (ICD-10 - Z01.818) I discussed the risks vs. benefits of surgery with the patient in generic terms. I feel that the patient is at low risk for perioperative complications. EKG today shows NSR with rate of 57, borderline left axis deviation, nonspecific Q waves in V2-V5; similar to prior EKG done 09/29/2016. The patient knows that there is always some risk with surgery and that each individual has to make a decision regarding whether the benefits of surgery outweigh the risks in order to proceed. I advised the patient to direct further questions regarding the specifics of the proposed surgical procedure and specific risks to the surgeon. At this time I feel that the patient's acute and chronic medical conditions are sufficiently optimized to proceed with surgery. - Patient already holding aspirin; she will take her statin tonight and hold BP meds tomorrow as instructed by anesthesia. Feb, Postmenopausal bleeding (ICD-10 - N95.0) Procedure is planned. Feb, Stage 3a chronic kidney disease (ICD-10 - N18.31 ) GFR is a little below baseline GFR of ~51; ok to proceed with surgery. D/w patient that this will need to be followed up with her PCP and recommended good water intake. Feb, Hypertension (ICD-10 - I10) BP is at goal. Feb, Hypercholesterolemia (ICD-10 - E78.00) Feb, COPD (chronic obstructive pulmonary disease) (IC D-10 - J44.9) No recent exacerbations, not on any inhalers currently. Feb, Prediabetes (ICD-10 - R73.03) Repeat A1c is better today, still in prediabetic range - result d/w patient. Feb, Allergic rhinitis (ICD-10 - J30.9) Feb, Situational anxiety (ICD-10 - F41.8) PLAN [...] tablet Orally Once a day as needed Treatment Notes Assessment Notes Clinical Notes Pre-op evaluation I discussed the risk s vs. benefits of surgery with the patient in generic terms. I feel that the patient is at low risk for perioperative complications.EKG today shows NSR with rate of 57, borderline left axis deviation, nonspecific Q waves in V2-V5; similar to prior EKG done 09/29/2016.The patient knows that there is always some risk with surgery and that each individual has to make a decision regarding whether the benefits of surgery outweigh the risks in order to proceed. I advised the patient to direct further questions regarding the specifics of the proposed surgical procedure and specific risks to the surgeon.At this time I feel that the patient's acute and chronic medical conditions are sufficiently optimized to proceed with surgery.- Patient already holding aspirin; she will take her statin tonight and hold BP meds tomorrow as instructed by anesthesia. Postmenopausal bleeding Procedure is shila nned. Stage 3a chronic kidney disease GFR is a little below baseline GFR of ~51; ok to proceed with surgery. D/w patient that this will need to be followed up with her PCP and recommended good water intake. Hypertension BP is at goal. COPD (chronic obstructive pulmonary disease) No recent exacerbations, not on any inhalers currently. Prediabetes Repeat A1c is better today, still in prediabetic range - result d/w patient. Future Test Test Name Order Date Comprehensive Metabolic Profile (CMP) [id number] HEMOGLOBIN A1c [id number] Next Appt Details as sched with PCP Reason: Provider Name:Aleah Terrell, 2021-02-27 0 1:20:00 PM, [address] [place] [address], , [place], [address], Provider Name:Aleah Terrell, 2021-03-16 1 0:20:00 AM, [address] [place] [address], , [place], [address], Provider Name:Windy Diaz, 07:30:00 AM, [address] [place] [address], , [place], [address], Insurance Providers Payer Name Payer Address Payer Phone Insured Name Patient Relati onship to Insured Coverage Start Date Coverage End Date BC[facility] OF [facility] [id number] [facility] [id number] [place] [address] self 2014
--- OUTSIDE RECORDS SUMMARY | 2021-04-15 08:52 | CCD ---
Author Author [facility] Organization [facility] Address Unknown Phone Unavailable Care Team Providers Care Receiving Lead Name Role Phone SYSTEM IN, NOT IN PROVIDER Unavailable Unavailable Henry Ko MD Unavailable Unavailable Henry Ko MD Unavailable Unavailable Henry Ko MD Unavailable Unavailable Henry Ko MD Unavailable Unavailable Henry Ko MD Unavailable Unavailable Henry Ko MD Unavailable Unavailable Henry Ko MD Unavailable Unavailable Henry Ko MD Unavailable Unavailable Henry Ko MD Unavailable Unavailable Henry Ko MD Unavailable Unavailable Henry Ko MD Unavailable Unavailable Henry Ko MD Unavailable Unavailable Henry Ko MD Unavailable Unavailable Henry Ko MD Unavailable Unavailable Henry Ko MD Unavailable Unavailable Henry Ko MD Unavailable Unavailable Henry Ko MD Unavailable Unavailable Henry Ko MD Unavailable Unavailable Henry Ko MD Unavailable Unavailable Henry Ko MD Unavailable Unavailable Henry Ko MD Unavailable Unavailable Henry Ko MD Unavailable Unavailable Henry Ko MD Unavailable Unavailable Henry Ko MD Unavailable Unavailable Henry Ko MD Unavailable Unavailable Henry oK MD Unavailable Unavailable Henry Ko MD Unavailable Unavailable Henry Ko MD Unavailable Unavailable Henry Ko MD Unavailable Unavailable Stefani, Henry MD Unavailable Unavailable Stefani, Henry MD Unavailable Unavailable Stefani, Henry MD Unavailable Unavailable Stefani, Henry MD Unavailable Unavailable Stefani, Henry MD Unavailable Unavailable Stefani, Henry MD Unavailable Unavailable Stefani, Henry MD Unavailable Unavailable Stefani, Henry MD Unavailable Unavailable Stefani, Henry MD Unavailable Unavailable Stefani, Henry MD Unavailable Unavailable Stefani, Henry MD Unavailable Unavailable Stefani, Henry MD Unavailable Unavailable Stefani, Henry MD Unavailable Unavailable Stefani Henry MD Unavailable Unavailable Stefani, Henry MD Unavailable Unavailable Stefani, Henry MD Unavailable Unavailable Stefani Henry MD Unavailable Unavailable Stefani, Henry MD Unavailable Unavailable Stefani, Henry MD Unavailable Unavailable Stefani Henry MD Unavailable Unavailable Stefani, Henry MD Unavailable Unavailable Stefani Henry MD Unavailable Unavailable Stefani Henry MD Unavailable Unavailable Stefani Henry MD Unavailable Unavailable Stefani Henry MD Unavailable Unavailable Stefani Henry MD Unavailable Unavailable Stefani, Henry MD Unavailable Unavailable Stefani, Henry MD Unavailable Unavailable Stefani, Henry MD Unavailable Unavailable Stefani, Henry MD Unavailable Unavailable Stefani Henry MD Unavailable Unavailable Stefani Henry MD Unavailable Unavailable Stefani Henry MD Unavailable Unavailable Stefani Henry MD Unavailable Unavailable Stefani Henry MD Unavailable Unavailable Stefani Henry MD Unavailable Unavailable Stefani Henry MD Unavailable Unavailable Stefani, Henry MD Unavailable Unavailable Stefani, Henry MD Unavailable Unavailable Stefani Henry Unavailable Unavailable StefaniHenry MD Unavailable Unavailable StefaniHenry MD Unavailable Unavailable StefaniHenry MD Unavailable Unavailable StefaniHenry MD Unavailable Unavailable Stefani Henry Unavailable Unavailable StefaniHenry MD Unavailable Unavailable StefaniHenry MD Unavailable Unavailable Stefani Henry Unavailable Unavailable StefaniHenry MD Unavailable Unavailable StefaniHenry dawn MD Unavailable Unavailable AkiraRylee dimas MD Unavailable Unavailable Rylee Champion MD Unavailable Unavailable Rylee Champion MD Unavailable Unavailable Rylee Champion MD Unavailable Unavailable Rylee Champion MD Unavailable Unavailable Rylee Champion MD Unavailable Unavailable Rylee Champion MD Unavailable Unavailable Rylee Champion MD Unavailable Unavailable Rylee Champion MD Unavailable Unavailable Rylee Champion MD Unavailable Unavailable Rylee Champion MD Unavailable Unavailable Rylee Champion MD Unavailable Unavailable AkiraRylee dimas MD Unavailable Unavailable Rylee Champion MD Unavailable Unavailable Rylee Champion MD Unavailable Unavailable AkiraRylee dimas MD Unavailable Unavailable Akira, A Inderjit MD Unavailable Unavailable Akira, A Inderjit MD Unavailable Unavailable Akira, A Inderjit MD Unavailable Unavailable Akira, A Inderjit MD Unavailable Unavailable Akira, A Inderjit MD Unavailable Unavailable Akira, A Inderjit MD Unavailable Unavailable Akira, A Inderjit MD Unavailable Unavailable Akira, A Inderjit MD Unavailable Unavailable Akira, A Inderjit MD Unavailable Unavailable Akira, A Inderjit MD Unavailable Unavailable Akira, A Inderjit MD Unavailable Unavailable Akira, A Inderjit MD Unavailable Unavailable Akira, A Inderjit MD Unavailable Unavailable Akira, A Inderjit MD Unavailable Unavailable Akira, A Inderjit MD Unavailable Unavailable Akira, A Inderjit MD Unavailable Unavailable Akira, A Inderjit MD Unavailable Unavailable Akira, A Inderjit MD Unavailable Unavailable Akira, A Inderjit MD Unavailable Unavailable Akira, A Inderjit MD Unavailable Unavailable Akira, A Inderjit MD Unavailable Unavailable Akira, A Inedrjit MD Unavailable Unavailable Akira, A Inderjit MD Unavailable Unavailable Akira, A Inderjit MD Unavailable Unavailable Akira, A Inderjit MD Unavailable Unavailable Akira, A Inderjit MD Unavailable Unavailable Akira, A Inderjit MD Unavailable Unavailable Akira, A Inderjit MD Unavailable Unavailable Akira, A Inderjit MD Unavailable Unavailable Akira, A Inderjit MD Unavailable Unavailable Akira, A Inderjit MD Unavailable Unavailable Akira, A Inderjit MD Unavailable Unavailable Akira, A Inderjit MD Unavailable Unavailable Akira, A Inderjit MD Unavailable Unavailable Akira, A Inderjit MD Unavailable Unavailable Akira, A Inderjit MD Unavailable Unavailable Akira, A Inderjit MD Unavailable Unavailable Akira, A Inderjit MD Unavailable Unavailable Akira, A Inderjit MD Unavailable Unavailable Akira, A Inderjit MD Unavailable Unavailable Akira, A Inderjit MD Unavailable Unavailable Akira, A Inderjit MD Unavailable Unavailable Akira, A Inderjit MD Unavailable Unavailable Akira, A Inderjit MD Unavailable Unavailable Akira, A Inderjit MD Unavailable Unavailable Akira, A Inderjit MD Unavailable Unavailable Akira, A Inderjit MD Unavailable Unavailable Akira, A Inderjit MD Unavailable Unavailable Akira, A Inderjit MD Unavailable Unavailable Akira, A Inderjit MD Unavailable Unavailable Akira, A Inderjit MD Unavailable Unavailable Akira, A Inderjit MD Unavailable Unavailable Akira, A Inderjit MD Unavailable Unavailable Akira, A Inderjit MD Unavailable Unavailable Akira, A Inderjit MD Unavailable Unavailable Akira, A Inderjit MD Unavailable Unavailable Akira, A Inderjit MD Unavailable Unavailable AkiraRylee dimas MD Unavailable Unavailable Akira, Rylee Jansen MD Unavailable Unavailable Akira, Rylee Jansen MD Unavailable Unavailable Akira, Rylee Jansen MD Unavailable Unavailable CAMPBELL, SANAM PA Unavailable Unavailable CAMPBELL, SANAM PA Unavailable Unavailable CAMPBELL, SANAM PA Unavailable Unavailable CAMPBELL, SANAM PA Unavailable Unavailable CAMPBELL, SANAM PA Unavailable Unavailable CAMPBELL, SANAM PA Unavailable Unavailable CAMPBELL, SANAM PA Unavailable Unavailable CAMPBELL, SANAM PA Unavailable Unavailable CAMPBELL, SANAM PA Unavailable Unavailable CAMPBELL, SANAM PA Unavailable Unavailable CAMPBELL, SANAM PA Unavailable Unavailable CAMPBELL, SANAM PA Unavailable Unavailable CAMPBELL, SANAM PA Unavailable Unavailable CAMPBELL, SANAM PA Unavailable Unavailable CAMPBELL, SANAM PA Unavailable Unavailable CAMPBELL, SANAM PA Unavailable Unavailable CAMPBELL, SANAM PA Unavailable Unavailable CAMPBELL, SANAM PA Unavailable Unavailable CAMPBELL, SANAM PA Unavailable Unavailable CAMPBELL, SANAM PA Unavailable Unavailable CAMPBELL, SANAM PA Unavailable Unavailable CAMPBELL, SANAM PA Unavailable Unavailable CAMPBELL, SANAM PA Unavailable Unavailable CAMPBELL, SANAM PA Unavailable Unavailable CAMPBELL, SANAM PA Unavailable Unavailable ACMPBELL, SANAM PA Unavailable Unavailable CAMPBELL, SANAM PA Unavailable Unavailable CAMPBELL, SANAM PA Unavailable Unavailable CAMPBELL, SANAM PA Unavailable Unavailable CAMPBELL, SANAM PA Unavailable Unavailable CAMPBELL, SANAM PA Unavailable Unavailable CAMPBELL, SANAM PA Unavailable Unavailable CAMPBELL, SANAM PA Unavailable Unavailable CAMPBELL, SANAM PA Unavailable Unavailable CAMPBELL, SANAM PA Unavailable Unavailable CAMPBELL, SANAM PA Unavailable Unavailable Fei Cruz MD Unavailable Unavailable Fei Cruz MD Unavailable Unavailable Fei Cruz MD Unavailable Unavailable Fei Cruz MD Unavailable Unavailable Fei Cruz MD Unavailable Unavailable Fei Cruz MD Unavailable Unavailable Fei Cruz MD Unavailable Unavailable Fei Cruz MD Unavailable Unavailable Fei Cruz MD Unavailable Unavailable Fei Cruz MD Unavailable Unavailable Fei Cruz MD Unavailable Unavailable Fei Cruz MD Unavailable Unavailable Fei Cruz MD Unavailable Unavailable Fei Cruz MD Unavailable Unavailable Fei Cruz MD Unavailable Unavailable Fei Cruz MD Unavailable Unavailable Fei Cruz MD Unavailable Unavailable Fei Cruz MD Unavailable Unavailable Fei Cruz MD Unavailable Unavailable Fei Cruz MD Unavailable Unavailable Fei Cruz MD Unavailable Unavailable Fei Cruz MD Unavailable Unavailable Fei Cruz MD Unavailable Unavailable Fei Cruz MD Unavailable Unavailable Fei Cruz MD Unavailable Unavailable Fei Cruz MD Unavailable Unavailable Fei Cruz MD Unavailable Unavailable Fei Cruz MD Unavailable Unavailable Fei Cruz MD Unavailable Unavailable Fei Cruz MD Unavailable Unavailable Fei Cruz MD Unavailable Unavailable Fei Cruz MD Unavailable Unavailable Fei Cruz MD Unavailable Unavailable Fei Cruz MD Unavailable Unavailable Fei Cruz MD Unavailable Unavailable Fei Cruz MD Unavailable Unavailable Fei Cruz MD Unavailable Unavailable Fei Cruz MD Unavailable Unavailable Fei Cruz MD Unavailable Unavailable Fei Cruz MD Unavailable Unavailable Fei Cruz MD Unavailable Unavailable Fei Cruz MD Unavailable Unavailable Fei Cruz MD Unavailable Unavailable Fei Cruz MD Unavailable Unavailable Fei Cruz MD Unavailable Unavailable Fei Cruz MD Unavailable Unavailable Fei Cruz MD Unavailable Unavailable Fei Cruz MD Unavailable Unavailable Fei Cruz MD Unavailable Unavailable Fei Cruz MD Unavailable Unavailable Fei Cruz MD Unavailable Unavailable Fei Cruz MD Unavailable Unavailable Fei Cruz MD Unavailable Unavailable Fei Cruz MD Unavailable Unavailable Fei Cruz MD Unavailable Unavailable Fei Cruz MD Unavailable Unavailable Fei Cruz MD Unavailable Unavailable Fei Cruz MD Unavailable Unavailable Fei Cruz MD Unavailable Unavailable Fei Cruz MD Unavailable Unavailable Fei Cruz MD Unavailable Unavailable Fei Cruz MD Unavailable Unavailable Fei Cruz MD Unavailable Unavailable Fei Cruz MD Unavailable Unavailable Fei Cruz MD Unavailable Unavailable Fei Cruz MD Unavailable Unavailable Fei Cruz MD Unavailable Unavailable Fei Cruz MD Unavailable Unavailable Fei Cruz MD Unavailable Unavailable Fei Cruz MD Unavailable Unavailable Fei Cruz MD Unavailable Unavailable Fei Cruz MD Unavailable Unavailable Fei Cruz MD Unavailable Unavailable Fei Cruz MD Unavailable Unavailable Fei Cruz MD Unavailable Unavailable Fei Cruz MD Unavailable Unavailable Fei Cruz MD Unavailable Unavailable Fei Cruz MD Unavailable Unavailable Fei Cruz MD Unavailable Unavailable Padalino, Devaughn Colmenares MD Unavailable Unavailable Padalino, Devaughn Colmenares MD Unavailable Unavailable Padalino, Devaughn Colmenares MD Unavailable Unavailable Padalino, Devaughn Colmenares MD Unavailable Unavailable Padalino, Devaughn Colmenares MD Unavailable Unavailable Padalino, Devaughn Colmenares MD Unavailable Unavailable Padalino, Devaughn Colmenares MD Unavailable Unavailable Padalino, Devaughn Colmenares MD Unavailable Unavailable Padalino, Devaughn Colmenares MD Unavailable Unavailable Padalino, Devaughn Colmenares MD Unavailable Unavailable Padalino, Devaughn Colmenares MD Unavailable Unavailable Padalino, Devaughn Colmneares MD Unavailable Unavailable Padalino, Devaughn Colmenares MD Unavailable Unavailable Padalino, Devaughn Colmenares MD Unavailable Unavailable Padalino, Devaughn Colmenares MD Unavailable Unavailable Padalino, Devaughn Colmenares MD Unavailable Unavailable Padalino, Devaughn Colmenares MD Unavailable Unavailable Padalino, Devaughn Colmenares MD Unavailable Unavailable Padalino, Devaughn Colmenares MD Unavailable Unavailable Padalino, Devaughn Colmenares MD Unavailable Unavailable Padalino, Devaughn Colmenares MD Unavailable Unavailable Padalino, Devaughn Colmenares MD Unavailable Unavailable Padalino, Devaughn Colmenares MD Unavailable Unavailable Padalino, Devaughn Colmenares MD Unavailable Unavailable Padalino, Devaughn Colmenares MD Unavailable Unavailable Padalinfei, Devaughn Colmenares MD Unavailable Unavailable Padalino, Devaughn Colmenares MD Unavailable Unavailable Padalino, Devaughn Colmenares MD Unavailable Unavailable Padalino, Devaughn Colmenares MD Unavailable Unavailable Padalino, Devaughn Colmenares MD Unavailable Unavailable Padalino, Devaughn Colmenares MD Unavailable Unavailable Padalino, Devaughn Colmenares MD Unavailable Unavailable Padalino, Devaughn Colmenares MD Unavailable Unavailable Padalino, Devaughn Colmenares MD Unavailable Unavailable Padalino, Devaughn Colmenares MD Unavailable Unavailable Padalino, Devaughn Colmenares MD Unavailable Unavailable Padalino, Devaughn Colmenares MD Unavailable Unavailable Padalino, Devaughn Colmenares MD Unavailable Unavailable Padalino, Devaughn Colmenares MD Unavailable Unavailable Padalino, Devaughn Colmenares MD Unavailable Unavailable Padalino, Devaughn Colmenares MD Unavailable Unavailable Padalino, Devaughn Colmenares MD Unavailable Unavailable Padalino, Devaughn Colmenares MD Unavailable Unavailable Padalino, Devaughn Colmenares MD Unavailable Unavailable Padalino, Devaughn Colmenares MD Unavailable Unavailable Padalino, Devaughn Colmenares MD Unavailable Unavailable Padalino, Devaughn Colmenares MD Unavailable Unavailable Padalino, Devaughn Colmenares MD Unavailable Unavailable Padalino, Devaughn Colmenares MD Unavailable Unavailable Padalino, Devaughn Colmenares MD Unavailable Unavailable Padalino, Devaughn Colmenares MD Unavailable Unavailable Padalino, Devaughn Colmenares MD Unavailable Unavailable Padalino, Devaughn Colmenares MD Unavailable Unavailable Padalino, Devaughn Colmenares MD Unavailable Unavailable Padalino, Devaughn Colmenares MD Unavailable Unavailable Padalino, Devaughn Colmenares MD Unavailable Unavailable Padalino, Devaughn Colmenares MD Unavailable Unavailable Padalino, Devaughn Colmenares MD Unavailable Unavailable Padalino, Devaughn Colmenares MD Unavailable Unavailable Padalino, Devaughn Colmenares MD Unavailable Unavailable Padalino, Devaughn Colmenarse MD Unavailable Unavailable Padalino, Devaughn Colmenares MD Unavailable Unavailable Padalino, Devaughn Colmenares MD Unavailable Unavailable Padalino, Devaughn Colmenares MD Unavailable Unavailable Padalino, Devaughn Colmenares MD Unavailable Unavailable Padalino, Devaughn Colmenares MD Unavailable Unavailable Padalino, Devaughn Colmenares MD Unavailable Unavailable Padalino, Devaughn Colmenares MD Unavailable Unavailable Padalino, Devaughn Colmenares MD Unavailable Unavailable Padalino, Devaughn Colmenares MD Unavailable Unavailable Padalino, Devaughn Colmenares MD Unavailable Unavailable Padalino, Devaughn Colmenares MD Unavailable Unavailable Padalino, Devaughn Colmenares MD Unavailable Unavailable Padalino, Devaughn Colmenares MD Unavailable Unavailable Padalino, Devaughn Colmenares MD Unavailable Unavailable Padalino, Devaughn Colmenares MD Unavailable Unavailable Padalino, Devaughn Colmenares MD Unavailable Unavailable Anat CABRERA MD Unavailable Unavailable Anat CABRERA MD Unavailable Unavailable Anat CABRERA MD Unavailable Unavailable Anat CABRERA MD Unavailable Unavailable Anat CABRERA MD Unavailable Unavailable Anat CABRERA MD Unavailable Unavailable Anat CABRERA MD Unavailable Unavailable Anat CABRERA MD Unavailable Unavailable Anat CABRERA MD Unavailable Unavailable HAHER R BUDDY ALMENDAREZ Unavailable Unavailable HAHER R BUDDY ALMENDAREZ Unavailable Unavailable HAHER, R BUDDY ALMENDAREZ Unavailable Unavailable HAHER R BUDDY ALMENDAREZ Unavailable Unavailable HAHER R BUDDY ALMENDAREZ Unavailable Unavailable HAHER R BUDDY ALMENDAREZ Unavailable Unavailable HAHER R BUDDY ALMENDAREZ Unavailable Unavailable HAHER R BUDDY ALMENDAREZ Unavailable Unavailable HAHER, R BUDDY ALMENDAREZ Unavailable Unavailable HAHER, R BUDDY ALMENDAREZ Unavailable Unavailable HAHER, R BUDDY ALMENDAREZ Unavailable Unavailable HAHER, R BUDDY ALMENDAREZ Unavailable Unavailable HAHER, R BUDDY ALMENDAREZ Unavailable Unavailable HAHER, R BUDDY ALMENDAREZ Unavailable Unavailable HAHER, R BUDDY ALMENDAREZ Unavailable Unavailable HAHER, R BUDDY ALMENDAREZ Unavailable Unavailable HAHER R BUDDY ALMENDAREZ Unavailable Unavailable HAHER R BUDDY ALMENDAREZ Unavailable Unavailable HAHER R BUDDY ALMENDAREZ Unavailable Unavailable HAHER R BUDDY ALMENDAREZ Unavailable Unavailable HAHER R BUDDY ALMENDAREZ Unavailable Unavailable HAHER R BUDDY ALMENDAREZ Unavailable Unavailable HAHER R BUDDY ALMENDAREZ Unavailable Unavailable HAHER R BUDDY ALMENDAREZ Unavailable Unavailable HAAnat ALEJANDRA MD Unavailable Unavailable HAHER R BUDDY ALMENDAREZ Unavailable Unavailable HAHER R BUDDY ALMENDAREZ Unavailable Unavailable HAHER R BUDDY ALMENDAREZ Unavailable Unavailable HAHER R BUDDY ALMENDAREZ Unavailable Unavailable HAAnat ALEJANDRA MD Unavailable Unavailable HAAnat ALEJANDRA MD Unavailable Unavailable HAAnat ALEJANDRA MD Unavailable Unavailable HAAnat ALEJANDRA MD Unavailable Unavailable HAHER R BUDDY ALMENDAREZ Unavailable Unavailable HAHER R BUDDY ALMENDAREZ Unavailable Unavailable HAHER R BUDDY ALMENDAREZ Unavailable Unavailable HAHER R BUDDY ALMENDAREZ Unavailable Unavailable HAAnat ALEJANDRA MD Unavailable Unavailable HAAnat ALEJANDRA MD Unavailable Unavailable HAAnat ALEJANDRA MD Unavailable Unavailable HAHER R BUDDY ALMENDAREZ Unavailable Unavailable HAHER R BUDDY ALMENDAREZ Unavailable Unavailable HAHER R BUDDY ALMENDAREZ Unavailable Unavailable HAHER R BUDDY ALMENDAREZ Unavailable Unavailable HAHER R BUDDY ALMENDAREZ Unavailable Unavailable HAAnat ALEJANDRA MD Unavailable Unavailable HAAnat ALEJANDRA MD Unavailable Unavailable HAAnat ALEJANDRA MD Unavailable Unavailable HAHER R BUDDY ALMENDAREZ Unavailable Unavailable HAHER R BUDDY ALMENDAREZ Unavailable Unavailable HAHER R BUDDY ALMENDAREZ Unavailable Unavailable HAHER R BUDDY ALMENDAREZ Unavailable Unavailable HAHER R BUDDY ALMENDAREZ Unavailable Unavailable HAAnat ALEJANDRA MD Unavailable Unavailable HAAnat ALEJANDRA MD Unavailable Unavailable HAAnat ALEJANDRA MD Unavailable Unavailable HAAnat ALEJANDRA MD Unavailable Unavailable HAAnat ALEJANDRA MD Unavailable Unavailable HAAnat ALEJANDRA MD Unavailable Unavailable HAAant ALEJANDRA MD Unavailable Unavailable HAAnat ALEJANDRA MD Unavailable Unavailable HAAnat ALEJANDRA MD Unavailable Unavailable Padalino, Devaughn Colmenares MD Unavailable Unavailable Padalino, Devaughn Colmenares MD Unavailable Unavailable Padalino, Devaughn Colmenares MD Unavailable Unavailable Padalino, Devaughn Colmenares MD Unavailable Unavailable Padalino, Devaughn Colmenares MD Unavailable Unavailable Padalino, Devaughn Colmenares MD Unavailable Unavailable Padalino, Devaughn Colmenares MD Unavailable Unavailable Padalino, Devaughn Colmenares MD Unavailable Unavailable Padalino, Devaughn Colmenares MD Unavailable Unavailable Padalino, Devaughn Colmenares MD Unavailable Unavailable Padalino, Devaughn Colmenares MD Unavailable Unavailable Padalino, Devaughn Colmenares MD Unavailable Unavailable Padalino, Devaughn Colmenares MD Unavailable Unavailable Padalino, Devaughn Colmenares MD Unavailable Unavailable Padalino, Devaughn Colmenares MD Unavailable Unavailable Padalino, Devaughn Colmenares MD Unavailable Unavailable Padalino, Devaughn Colmenares MD Unavailable Unavailable Padalino, Devaughn Colmenares MD Unavailable Unavailable Padalino, Devaughn Colmenares MD Unavailable Unavailable Padalino, Devaughn Colmenares MD Unavailable Unavailable Padalino, Devaughn Colmenares MD Unavailable Unavailable Padalino, Devaughn Colmenares MD Unavailable Unavailable Padalino, Devaughn Colmenares MD Unavailable Unavailable Padalino, Devaughn Colmenares MD Unavailable Unavailable Padalino, Devaughn Colmenares MD Unavailable Unavailable Padalino, Devaughn Colmenares MD Unavailable Unavailable Padalino, Devaughn Colmenares MD Unavailable Unavailable Padalino, Devaughn Colmenares MD Unavailable Unavailable Padalino, Devaughn Colmenares MD Unavailable Unavailable Padalino, Devaughn Colmenares MD Unavailable Unavailable Padalino, Devaughn Colmenares MD Unavailable Unavailable Padalino, Devaughn Colmenares MD Unavailable Unavailable Padalino, Devaughn Colmenares MD Unavailable Unavailable Padalino, Devaughn Colmenares MD Unavailable Unavailable Padalino, Devaughn Colmenares MD Unavailable Unavailable Padalino, Devaughn Colmenares MD Unavailable Unavailable Padalino, Devaughn Colmenares MD Unavailable Unavailable Padalino, Devaughn Colmenares MD Unavailable Unavailable Padalino, Devaughn Colmenares MD Unavailable Unavailable Padalino, Devaughn Colmenares MD Unavailable Unavailable Padalino, Devaughn Colmenares MD Unavailable Unavailable Padalino, Devaughn Colmenares MD Unavailable Unavailable Padalino, Devaughn Colmenares MD Unavailable Unavailable Padalino, Devaughn Colmenares MD Unavailable Unavailable Padalino, Devaughn Colmenares MD Unavailable Unavailable Padalino, Devaughn Colmenares MD Unavailable Unavailable Padalino, Devaughn Colmenares MD Unavailable Unavailable Padalino, Devaugnh Colmenares MD Unavailable Unavailable Padalino, Devaughn Colmenares MD Unavailable Unavailable Padalino, Devaughn Colmenares MD Unavailable Unavailable Padalino, Devuaghn Colmenares MD Unavailable Unavailable Padalino, Devaughn Colmenares MD Unavailable Unavailable Padalino, Devaughn Colmenares MD Unavailable Unavailable Padalino, Devaughn Colmenares MD Unavailable Unavailable Padalino, Devaughn Colmenares MD Unavailable Unavailable Padalino, Devaughn Colmenares MD Unavailable Unavailable Padalino, Devaughn Colmenares MD Unavailable Unavailable Padalino, Devaughn Colmenares MD Unavailable Unavailable Padalino, Devaughn Colmenares MD Unavailable Unavailable Padalino, Devaughn Colmenares MD Unavailable Unavailable Padalino, Devaughn Colmenares MD Unavailable Unavailable Padalino, Devaughn Colmenares MD Unavailable Unavailable Padalino, Devaughn Colmenares MD Unavailable Unavailable Padalino, Devaughn Colmenares MD Unavailable Unavailable Padalino, Devaughn Colmenares MD Unavailable Unavailable Padalino, Devaughn Colmenares MD Unavailable Unavailable Padalino, Devaughn Colmenares MD Unavailable Unavailable Padalino, Devaughn Colmenares MD Unavailable Unavailable Padalino, Devaughn Colmenares MD Unavailable Unavailable Padalino, Devaughn Colmenares MD Unavailable Unavailable Padalino, Devaughn Colmenares MD Unavailable Unavailable Padalino, Devaughn Colmenares MD Unavailable Unavailable Padalino, Devaughn Colmenares MD Unavailable Unavailable Padalino, Devaughn Colmenares MD Unavailable Unavailable Padalino, Devaughn Colmenares MD Unavailable Unavailable Padalino, Devaughn Colmenares MD Unavailable Unavailable Padalino, Devaughn Colmenares MD Unavailable Unavailable Padalino, Devaughn Colmenares MD Unavailable Unavailable Padalino, Devaughn Colmenares MD Unavailable Unavailable Padalino, Devaughn Colmenares MD Unavailable Unavailable Padalino, Devaughn Colmenares MD Unavailable Unavailable Padalino, Devaughn Colmenares MD Unavailable Unavailable Padalino, Devaughn Colmenares MD Unavailable Unavailable Padalino, Devaughn Colmenares MD Unavailable Unavailable Padalino, Devaughn Colmenares MD Unavailable Unavailable Padalino, Devaughn Colmenares MD Unavailable Unavailable Padalino, Devaughn Colmenares MD Unavailable Unavailable Padalino, Devaughn Colmenares MD Unavailable Unavailable Padalino, Devaughn Colmenares MD Unavailable Unavailable Padalino, Devaughn Colmenares MD Unavailable Unavailable Padalino, Devaughn Colmenares MD Unavailable Unavailable Padalino, Devaughn Colmenares MD Unavailable Unavailable Padalino, Devaughn Colmenares MD Unavailable Unavailable Padalino, Devaughn Colmenares MD Unavailable Unavailable Padalino, Devaughn Colmenares MD Unavailable Unavailable Padalino, Devaughn Colmenares MD Unavailable Unavailable Padalino, Devaughn Colmenares MD Unavailable Unavailable Padalino, Devaughn Colmenares MD Unavailable Unavailable Padalino, Devaughn Colmenares MD Unavailable Unavailable Padalino, Devaughn Colmenares MD Unavailable Unavailable Padalino, Devaughn Colmenares MD Unavailable Unavailable Padalino, Devaughn Colmenares MD Unavailable Unavailable Padalino, Devaughn Colmenares MD Unavailable Unavailable Padalino, Devaughn Colmenares MD Unavailable Unavailable Padalino, Devaughn Colmenares MD Unavailable Unavailable Padalino, Devaughn Colmenares MD Unavailable Unavailable Padalino, Devaughn Colmenares MD Unavailable Unavailable Padalino, Devaughn Colmenares MD Unavailable Unavailable Padalino, Devaughn Colmenares MD Unavailable Unavailable Padalino, Devaughn Colmenares MD Unavailable Unavailable Padalino, Devaughn Colmenares MD Unavailable Unavailable Padalino, Devaughn Colmenares MD Unavailable Unavailable Padalino, Devaughn Colmenares MD Unavailable Unavailable Padalino, Devaughn Colmenares MD Unavailable Unavailable Padalino, Devaughn Colmenares MD Unavailable Unavailable Padalino, Devaughn Colmenares MD Unavailable Unavailable Padalino, Devaughn Colmenares MD Unavailable Unavailable Padalino, Devaughn Colmenares MD Unavailable Unavailable Padalino, Devaughn Colmenares MD Unavailable Unavailable Padalino, Devaughn Colmenares MD Unavailable Unavailable Padalino, Devaughn Colmenares MD Unavailable Unavailable Padalino, Devaughn Colmenares MD Unavailable Unavailable Padalino, Devaughn Colmenares MD Unavailable Unavailable Padalino, Devaughn Colmenares MD Unavailable Unavailable Padalino, Devaughn Colmenares MD Unavailable Unavailable Padalino, Devaughn Colmenares MD Unavailable Unavailable Padalino, Devaughn Colmenares MD Unavailable Unavailable Padalino, Devaughn Colmenares MD Unavailable Unavailable Padalino, Devaughn Colmenares MD Unavailable Unavailable Padalino, Devaughn Colmenares MD Unavailable Unavailable Padalino, Devaughn Colmenares MD Unavailable Unavailable Padalino, Devaughn Colmenares MD Unavailable Unavailable Padalino, Devaughn Colmenares MD Unavailable Unavailable Padalino, Devaughn Colmenares MD Unavailable Unavailable Padalino, Devaughn Colmenares MD Unavailable Unavailable Padalino, Devaughn Colmenares MD Unavailable Unavailable Padalino, Devaughn Colmenares MD Unavailable Unavailable Padalino, Devaughn Colmenares MD Unavailable Unavailable Padalino, Devaughn Colmenares MD Unavailable Unavailable Padalino, Devaughn Colmenares MD Unavailable Unavailable Padalino, Devaughn Colmenares MD Unavailable Unavailable Padalino, Devaughn Colmenares MD Unavailable Unavailable Padalino, Devaughn Colmenares MD Unavailable Unavailable Padalino, Devaughn Colmenares MD Unavailable Unavailable Padalino, Devaughn Colmenares MD Unavailable Unavailable Padalino, Devaughn Colmenares MD Unavailable Unavailable Padalino, Devaughn Colmenares MD Unavailable Unavailable Padalino, Devaughn Colmenares MD Unavailable Unavailable Padalino, Devaughn Colmenares MD Unavailable Unavailable Padalino, Devaughn Colmenares MD Unavailable Unavailable Padalino, Devaughn Colmenares MD Unavailable Unavailable Padalino, Devaughn Colmenares MD Unavailable Unavailable Padalino, Devaughn Colmenares MD Unavailable Unavailable Padalino, Devaughn Colmenares MD Unavailable Unavailable Cambareri, Gladis Suarez MD Unavailable Unavailable Cambareri, Gladis Suarez MD Unavailable Unavailable Cambareri, Gladis Suarez MD Unavailable Unavailable Cambareri, Gladis Suarez MD Unavailable Unavailable Cambareri, Gladis Suarez MD Unavailable Unavailable Cambareri, Gladis Suarez MD Unavailable Unavailable Cambareri, Gladis Suarez MD Unavailable Unavailable Cambareri, Gladis Suarez MD Unavailable Unavailable Cambareri, Gladis Suarez MD Unavailable Unavailable Cambareri, Gladis Suarez MD Unavailable Unavailable Cambareri, Gladis Suarez MD Unavailable Unavailable Cambareri, Gladis Suarez MD Unavailable Unavailable Cambareri, Gladis Suarez MD Unavailable Unavailable Cambareri, Gladis Suarez MD Unavailable Unavailable Cambareri, Gladis Suarez MD Unavailable Unavailable Cambareri, Gladis Suarez MD Unavailable Unavailable Cambareri, Gladis Suarez MD Unavailable Unavailable Cambareri, Gladis Suarez MD Unavailable Unavailable Cambareri, Gladis Suarez MD Unavailable Unavailable Cambareri, Gladis Suarez MD Unavailable Unavailable Cambareri, Gladis Suarez MD Unavailable Unavailable Cambareri, Gladis Suarez MD Unavailable Unavailable Cambareri, Gladis Suraez MD Unavailable Unavailable Cambareri, Gladis Suarez MD Unavailable Unavailable Cambareri, Gladis Suarez MD Unavailable Unavailable Cambareri, Gladis Suarez MD Unavailable Unavailable Cambareri, Gladis Suarez MD Unavailable Unavailable Cambareri, Gladis Suarez MD Unavailable Unavailable Cambareri, Gladis Suarez MD Unavailable Unavailable Cambareri, Gladis Suarez MD Unavailable Unavailable Cambareri, Gladis Suarez MD Unavailable Unavailable Cambareri, Gladis Suarez MD Unavailable Unavailable Cambareri, Gladis Suarez MD Unavailable Unavailable Cambareri, Gladis Suarez MD Unavailable Unavailable Cambareri, Gladis Suarez MD Unavailable Unavailable Cambareri, Gladis Suarez MD Unavailable Unavailable Cambareri, Gladis Suarez MD Unavailable Unavailable Cambareri, Gladis Suarez MD Unavailable Unavailable Cambareri, Gladis Suarez MD Unavailable Unavailable Cambareri, Gladis Suarez MD Unavailable Unavailable Cambareri, Gladis Suarez MD Unavailable Unavailable Cambareri, Gladis Suarez MD Unavailable Unavailable Cambareri, Gladis Suarez MD Unavailable Unavailable Cambareri, Gladis Suarez MD Unavailable Unavailable Cambareri, Gladis Suarez MD Unavailable Unavailable Cambareri, Gladis Suarez MD Unavailable Unavailable Cambareri, Gladis Suarez MD Unavailable Unavailable Cambareri, Gladis Suarez MD Unavailable Unavailable Cambareri, Gladis Suarez MD Unavailable Unavailable Cambareri, Gladis Suarez MD Unavailable Unavailable Cambareri, Gladis Suarez MD Unavailable Unavailable Cambareri, Gladis Suarez MD Unavailable Unavailable Cambareri, Gladis Suarez MD Unavailable Unavailable Cambareri, Gladis Suarez MD Unavailable Unavailable Cambareri, Gladis Suarez MD Unavailable Unavailable Cambareri, Gladis Suarez MD Unavailable Unavailable Cambareri, Gladis Suarez MD Unavailable Unavailable Cambareri, Gladis Suarez MD Unavailable Unavailable Cambareri, Gladis Suarez MD Unavailable Unavailable Cambareri, Gladis Suarez MD Unavailable Unavailable Cambareri, Gladis Suarez MD Unavailable Unavailable Cambareri, Gladis Suarez MD Unavailable Unavailable Cambareri, Gladis Suarez MD Unavailable Unavailable Cambareri, Gladis Suarez MD Unavailable Unavailable Cambareri, Gladis Suarez MD Unavailable Unavailable Cambareri, Gladis Suarez MD Unavailable Unavailable Cambareri, Gladis Suarez MD Unavailable Unavailable Cambareri, Gladis Suarez MD Unavailable Unavailable Cambareri, Gladis Suarez MD Unavailable Unavailable Cambareri, Gladis Suarez MD Unavailable Unavailable Cambareri, Gladis Suarez MD Unavailable Unavailable Cambareri, Gladis Suarez MD Unavailable Unavailable Cambareri, Gladis Suarez MD Unavailable Unavailable Cambareri, Gladis Suarez MD Unavailable Unavailable Cambareri, Gladis Suarez MD Unavailable Unavailable Cambareri, Gladis Suarez MD Unavailable Unavailable Cambareri, Gladis Suarez MD Unavailable Unavailable Cambareri, Gladis Suarez MD Unavailable Unavailable KENNY, MAQBOOL MICHAEL MD Unavailable Unavailable KENNY, MAQBOOL MICHAEL MD Unavailable Unavailable KENNY, MAQBOOL MICHAEL MD Unavailable Unavailable KENNY, MAQBOOL MICHAEL MD Unavailable Unavailable KENNY, MAQBOOL MICHAEL MD Unavailable Unavailable KENNY, MAQBOOL MICHAEL MD Unavailable Unavailable KENNY, MAQBOOL MICHAEL MD Unavailable Unavailable KENNY, MAQBOOL MICHAEL MD Unavailable Unavailable KENNY, MAQBOOL MICHAEL MD Unavailable Unavailable KENNY, MAQBOOL MICHAEL MD Unavailable Unavailable KENNY, MAQBOOL MICHAEL MD Unavailable Unavailable KENNY, MAQBOOL MICHAEL MD Unavailable Unavailable KENNY, MAQBOOL MICHAEL MD Unavailable Unavailable KENNY, MAQBOOL MICHAEL MD Unavailable Unavailable KENNY, MAQBOOL MICHAEL MD Unavailable Unavailable KENNY, MAQBOOL MICHAEL MD Unavailable Unavailable KENNY, MAQBOOL MICHAEL MD Unavailable Unavailable KENNY, MAQBOOL MICHAEL MD Unavailable Unavailable KENNY, MAQBOOL MICHAEL MD Unavailable Unavailable KENNY, MAQBOOL MICHAEL MD Unavailable Unavailable KENNY, MAQBOOL MICHAEL MD Unavailable Unavailable KENNY, MAQBOOL MICHAEL MD Unavailable Unavailable KENNY, MAQBOOL MICHAEL MD Unavailable Unavailable KENNY, MAQBOOL MICHAEL MD Unavailable Unavailable KENNY, MAQBOOL MICHAEL MD Unavailable Unavailable KENNY, MAQBOOL MICHAEL MD Unavailable Unavailable KENNY, MAQBOOL MICHAEL MD Unavailable Unavailable KENNY, MAQBOOL MICHAEL MD Unavailable Unavailable KENNY, MAQBOOL MICHAEL MD Unavailable Unavailable KENNY, MAQBOOL MICHAEL MD Unavailable Unavailable KENNY, MAQBOOL MICHAEL MD Unavailable Unavailable KENNY, MAQBOOL MICHAEL MD Unavailable Unavailable KENNY, MAQBOOL MICHAEL MD Unavailable Unavailable KENNY, MAQBOOL MICHAEL MD Unavailable Unavailable KENNY, MAQBOOL MICHAEL MD Unavailable Unavailable KENNY, MAQBOOL MICHAEL MD Unavailable Unavailable KENNY, MAQBOOL MICHAEL MD Unavailable Unavailable KENNY, MAQBOOL MICHAEL MD Unavailable Unavailable KENNY, MAQBOOL MICHAEL MD Unavailable Unavailable KENNY, MAQBOOL MICHAEL MD Unavailable Unavailable KENNY, MAQBOOL MICHAEL MD Unavailable Unavailable KENNY, MAQBOOL MICHAEL MD Unavailable Unavailable KENNY, MAQBOOL MICHAEL MD Unavailable Unavailable KENNY, MAQBOOL MICHAEL MD Unavailable Unavailable KENNY, MAQBOOL MICHAEL MD Unavailable Unavailable KENNY, MAQBOOL MICHAEL MD Unavailable Unavailable KENNY, MAQBOOL MICHAEL MD Unavailable Unavailable KENNY, MAQBOOL MICHAEL MD Unavailable Unavailable KENNY, MAQBOOL MICHAEL MD Unavailable Unavailable KENNY, MAQBOOL MICHAEL MD Unavailable Unavailable KENNY, MAQBOOL MICHAEL MD Unavailable Unavailable KENNY, MAQBOOL MICHAEL MD Unavailable Unavailable KENNY, MAQBOOL MICHAEL MD Unavailable Unavailable KENNY, MAQBOOL MICHAEL MD Unavailable Unavailable KENNY, MAQBOOL MICHAEL MD Unavailable Unavailable KENNY, MAQBOOL MICHAEL MD Unavailable Unavailable KENNY, MAQBOOL MICHAEL MD Unavailable Unavailable KENNY, MAQBOOL MICHAEL MD Unavailable Unavailable KENNY, MAQBOOL MICHAEL MD Unavailable Unavailable KENNY, MAQBOOL MICHAEL MD Unavailable Unavailable KENNY, MAQBOOL MICHAEL MD Unavailable Unavailable KENNY, MAQBOOL MICHAEL MD Unavailable Unavailable KENNY, MAQBOOL MICHAEL MD Unavailable Unavailable KENNY, MAQBOOL MICHAEL MD Unavailable Unavailable KENNY, MAQBOOL MICHAEL MD Unavailable Unavailable KENNY, MAQBOOL MICHAEL MD Unavailable Unavailable KENNY, MAQBOOL MICHAEL MD Unavailable Unavailable KENNY, MAQBOOL MICHAEL MD Unavailable Unavailable KENNY, MAQBOOL MICHAEL MD Unavailable Unavailable KENNY, MAQBOOL MICHAEL MD Unavailable Unavailable KENNY, MAQBOOL MIHCAEL MD Unavailable Unavailable KENNY, MAQBOOL MICHAEL ALMENDAREZ Unavailable Unavailable KENNY, KENNEDYQBOOL MICHAEL Unavailable Unavailable KENNY, MAQBOOL MICHAEL Unavailable Unavailable KENNY, KENNEDYQBOOL MICHAEL Unavailable Unavailable KENNY, MAQBOOL MICHAEL Unavailable Unavailable KENNY, MAQBOOL MICHAEL ALMENDAREZ Unavailable Unavailable KENNY MAQBOOL MICHAEL ALMENDAREZ Unavailable Unavailable MOSHANTELLE R ENRIQUE ALMENDAREZ Unavailable Unavailable MOSHANTELLE R ENRIQUE ALMENDAREZ Unavailable Unavailable MOQUIN R ENRIQUE ALMENDAREZ Unavailable Unavailable MOQUIN, R ENRIQUE ALMENDAREZ Unavailable Unavailable MOSHANTELLE R ENRIQUE ALMENDAREZ Unavailable Unavailable MOSHANTELLE R ENRIQUE ALMENDAREZ Unavailable Unavailable MOAnat PEPPER MD Unavailable Unavailable MOAnat PEPPER MD Unavailable Unavailable MOSHANTELLE R ENRIQUE ALMENDAREZ Unavailable Unavailable MOAnat PEPPER MD Unavailable Unavailable MOAnat PEPPER MD Unavailable Unavailable MOAnat PEPPER MD Unavailable Unavailable MOAnat PEPPER MD Unavailable Unavailable MOAnat PEPPER MD Unavailable Unavailable MOAnat PEPPER MD Unavailable Unavailable MOAnat PEPPER MD Unavailable Unavailable MOAnat PEPPER MD Unavailable Unavailable MOSHANTELLE R ENRIQUE ALMENDAREZ Unavailable Unavailable MOQUIN R ENRIQUE ALMENDAREZ Unavailable Unavailable MOAnat PEPPER MD Unavailable Unavailable MOAnat PEPPER MD Unavailable Unavailable MOAnat PEPPER MD Unavailable Unavailable MOAnat PEPPER MD Unavailable Unavailable MOSHANTELLE R ENRIQUE ALMENDAREZ Unavailable Unavailable MOAnat PEPPER MD Unavailable Unavailable MOAnat PEPPER MD Unavailable Unavailable MOAnat PEPPER MD Unavailable Unavailable MOAnat PEPPER MD Unavailable Unavailable MOAnat PEPPER MD Unavailable Unavailable MOAnat PEPPER MD Unavailable Unavailable MOAnat PEPPER MD Unavailable Unavailable MOAnat PEPPER MD Unavailable Unavailable MOAnat PEPPER MD Unavailable Unavailable MOQUIN R ENRIQUE ALMENDAREZ Unavailable Unavailable MOQUIN R ENRIQUE ALMENDAREZ Unavailable Unavailable MOQUIN R ENRIQUE ALMENDAREZ Unavailable Unavailable MOQUIN R ENRIQUE ALMENDAREZ Unavailable Unavailable MOQUIN R ENRIQUE ALMENDAREZ Unavailable Unavailable MOSHANTELLE R ENRIQUE ALMENDAREZ Unavailable Unavailable MOSHANTELLE R ENRIQUE ALMENDAREZ Unavailable Unavailable MOSHANTELLE R ENRIQUE ALMENDAREZ Unavailable Unavailable MOSHANTELLE R ENRIQUE ALMENDAREZ Unavailable Unavailable MOSHANTELLE R ENRIQUE ALEMNDAREZ Unavailable Unavailable MOQUIN R ENRIQUE ALMENDAREZ Unavailable Unavailable MOAnat PEPPER MD Unavailable Unavailable MOQUIN R ENRIQUE ALMENDAREZ Unavailable Unavailable MOAnat PEPPER MD Unavailable Unavailable MOAnat PEPPER MD Unavailable Unavailable MOQUIN R ENRIQUE ALMENDAREZ Unavailable Unavailable MOSHANTELLE R ENRIQUE ALMENDAREZ Unavailable Unavailable MOQUIN, R ENRIQUE ALMENDAREZ Unavailable Unavailable Anat MAGDALENO MD Unavailable Unavailable Anat MAGDALENO MD Unavailable Unavailable Anat MAGDALENO MD Unavailable Unavailable Anat MAGDALENO MD Unavailable Unavailable Anat MAGDALENO MD Unavailable Unavailable Anat MAGDALENO MD Unavailable Unavailable Anat MAGDALENO MD Unavailable Unavailable Anat MAGDALENO MD Unavailable Unavailable Anat MAGDALENO MD Unavailable Unavailable Anat MAGDALENO MD Unavailable Unavailable Anat MAGDALENO MD Unavailable Unavailable Anat MAGDALENO MD Unavailable Unavailable Aant MAGDALENO MD Unavailable Unavailable Anat MAGDALENO MD Unavailable Unavailable Anat MAGDALENO MD Unavailable Unavailable Anat MAGDALENO MD Unavailable Unavailable Anat MAGDALENO MD Unavailable Unavailable Anat MAGDALENO MD Unavailable Unavailable Anat MAGDALENO MD Unavailable Unavailable Anat MAGDALENO MD Unavailable Unavailable Anat MAGDALENO MD Unavailable Unavailable Anat MAGDALENO MD Unavailable Unavailable Anat MAGDALENO MD Unavailable Unavailable Anat MAGDALENO MD Unavailable Unavailable Anat MAGDALENO MD Unavailable Unavailable Anat MAGDALENO MD Unavailable Unavailable Anat MAGDALENO MD Unavailable Unavailable Anat MAGDALENO MD Unavailable Unavailable Anat MAGDALENO MD Unavailable Unavailable Anat MAGDALENO MD Unavailable Unavailable Anat MAGDALENO MD Unavailable Unavailable Anat MAGDALENO MD Unavailable Unavailable Anat MAGDALENO MD Unavailable Unavailable Anat MAGDALENO MD Unavailable Unavailable Anat MAGDALENO MD Unavailable Unavailable Anat MAGDALENO MD Unavailable Unavailable Anat MAGDALENO MD Unavailable Unavailable Anat MAGDALENO MD Unavailable Unavailable HANIFIN, M RONDA PA Unavailable Unavailable HANIFIN, M RONDA PA Unavailable Unavailable HANIFIN, M RONDA PA Unavailable Unavailable HANIFIN, M RONDA PA Unavailable Unavailable HANIFIN, M RONDA PA Unavailable Unavailable HANIFIN, M RONDA PA Unavailable Unavailable HANIFIN, M RONDA PA Unavailable Unavailable HANIFIN, M RONDA PA Unavailable Unavailable HANIFIN, M RONDA PA Unavailable Unavailable HANIFIN, M RONDA PA Unavailable Unavailable HANIFIN, M RONDA PA Unavailable Unavailable HANIFIN, M RONDA PA Unavailable Unavailable HANIFIN, M RONDA PA Unavailable Unavailable HANIFIN, M RONDA PA Unavailable Unavailable HANIFIN, M RONDA PA Unavailable Unavailable HANIFIN, M RONDA PA Unavailable Unavailable HANIFIN, M RONDA PA Unavailable Unavailable HANIFIN, M RONDA PA Unavailable Unavailable HANIFIN, M RONDA PA Unavailable Unavailable HANIFIN, M RONDA PA Unavailable Unavailable HANIFIN, M RONDA PA Unavailable Unavailable HANIFIN, M RONDA PA Unavailable Unavailable HANIFIN, M RONDA PA Unavailable Unavailable HANIFIN, M RONDA PA Unavailable Unavailable HANIFIN, M RONDA PA Unavailable Unavailable HANIFIN, M RONDA PA Unavailable Unavailable HANIFIN, M RONDA PA Unavailable Unavailable HANIFIN, M RONDA PA Unavailable Unavailable HANIFIN, M RONDA PA Unavailable Unavailable HANIFIN, M RONDA PA Unavailable Unavailable HANIFIN, M RONDA PA Unavailable Unavailable HANIFIN, M RONDA PA Unavailable Unavailable HANIFIN, M RONDA PA Unavailable Unavailable HANIFIN, M RONDA PA Unavailable Unavailable HANIFIN, M RONDA PA Unavailable Unavailable HANIFIN, M RONDA PA Unavailable Unavailable HANIFIN, M RONDA PA Unavailable Unavailable HANIFIN, M RONDA PA Unavailable Unavailable HANIFIN, M RONDA PA Unavailable Unavailable HANIFIN, M RONDA PA Unavailable Unavailable HANIFIN, M RONDA PA Unavailable Unavailable HANIFIN, M RONDA PA Unavailable Unavailable HANIFIN, M RONDA PA Unavailable Unavailable HANIFIN, M RONDA PA Unavailable Unavailable HANIFIN, M RONDA PA Unavailable Unavailable HANIFIN, M RONDA PA Unavailable Unavailable HANIFIN, M RONDA PA Unavailable Unavailable HANIFIN, M RONDA PA Unavailable Unavailable HANIFIN, M RONDA PA Unavailable Unavailable HANIFIN, M RONDA PA Unavailable Unavailable HANIFIN, M RONDA PA Unavailable Unavailable HANIFIN, M RONDA PA Unavailable Unavailable HANIFIN, M RONDA PA Unavailable Unavailable HANIFIN, M RONDA PA Unavailable Unavailable Re-disclosure Warning The records that you are about to access may contain information from federally-assisted alcohol or drug abuse programs. If such information is present, then the following federally mandated warning applies: This information has been disclosed to you from records protected by federal confidentiality rules (42 CFR part 2). The federal rules prohibit you from making any further disclosure of this information unless further disclosure is expressly permitted by the written consent of the person to whom it pertains or as otherwise permitted by 42 CFR part 2. A general authorization for the release of medical or other information is NOT sufficient for this purpose. The Federal rules restrict any use of the information to criminally investigate or prosecute any alcohol or drug abuse patient.The records that you are about to access may contain highly sensitive health information, the redisclosure of which is protected by Article 27-F of the [facility] Public Health law. If you continue you may have access to information: Regarding HIV / AIDS; Provided by facilities licensed or operated by the [facility] Office of Mental Health; or Provided by the [facility] Office for People With Developmental Disabilities. If such information is present, then the following [facility] mandated warning applies: This information has been disclosed to you from confidential records which are protected by state law. State law prohibits you from making any further disclosure of this information without the specific written consent of the person to whom it pertains, or as otherwise permitted by law. Any unauthorized further disclosure in violation of state law may result in a fine or halfway sentence or both. A general authorization for the release of medical or other information is NOT sufficient authorization for further disc losure. Family History Family Member Name Family Member Gender Family Member Status Date o f Status Description Data Source(s) Unknown Male Problem MEDENT ([facility] asthma htn lymphadema prostate cancer Unknown Unknown Problem MED[facility] ([facility]) Unknown Unknown Problem [facility] ([facility]) Unknown Unknown Problem [facility] ([facility]) Unknown Unknown Problem [facility] ([facility]) Unknown Unknown Problem [facility] ([facility]) Unknown Unknown Problem [facility] ([facility]) Encounters Encounter Providers Location Date Indications Data Source(s ) Outpatient Attender: SANAM Gilmore ry 04/09/2021 11:40:00 AM EDT MEDENT ([facility]) Unknown [address] [facility], [facility] [address] 04/09/2021 12:00:00 AM EDT eCW1 ([facility]) ( PO) [facility] [address] [place] [address] 03/18/2021 12:00:00 AM EDT eCW1 ([facility]) [place] [address] [facility] [address] 03/18/2021 12:00:00 AM EDT eCW1 ([facility]) [place] [address] [facility] [address] 03/17/2021 12:00:00 AM EDT eCW1 ([facility]) [place] [address] [facility] [address] 02/26/2021 12:00:00 AM EDT eCW1 ([facility]) [place] [address] [facility] [address] 02/24/2021 12:00:00 AM EDT eCW1 ([facility]) [place] [address] [facility] [address] 02/24/2021 12:00:00 AM EDT eCW1 ([facility]) [place] [address] [facility] [address] 02/13/2021 12:00:00 AM EDT eCW1 ([facility]) [place] [address] [facility] [address] 02/11/2021 12:00:00 AM EDT eCW1 ([facility]) [place] [address] [facility] [address] 02/02/2021 12:00:00 AM EDT eCW1 ([facility]) [place] [address] [facility] [address] 12/31/2020 12:00:00 AM EDT eCW1 ([facility]) [place] [address] [facility] [address] 12/19/2020 12:00:00 AM EDT eCW1 ([facility]) [place] [address] [facility] [address] 12/16/2020 12:00:00 AM EDT eCW1 ([facility]) [place] [address] [facility] [address] 12/11/2020 12:00:00 AM EDT eCW1 ([facility]) [place] [address] [facility] [address] 12/08/2020 12:00:00 AM EDT eCW1 ([facility]) [place] [address] [facility] [address] 12/04/2020 12:00:00 AM EDT eCW1 ([facility]) [place] [address] [facility] [address] 12/02/2020 12:00:00 AM EDT eCW1 ([facility]) [place] [address] [facility] [address] 11/26/2020 12:00:00 AM EDT eCW1 ([facility]) [place] [address] [facility] [address] 11/12/2020 12:00:00 AM EDT eCW1 ([facility]) [place] [address] [facility] [address] 11/12/2020 12:00:00 AM EDT eCW1 ([facility]) [place] [address] [facility] [address] 10/28/2020 12:00:00 AM EDT eCW1 ([facility]) Recurring Patient Referrer: Erick Andersen MD 07/23/2020 0 1:01:31 PM EST [facility] [place] [address] [facility] [address] 06/23/2020 12:00:00 AM EST eCW1 ([facility]) [place] [address] [facility] [address] 06/23/2020 12:00:00 AM EST eCW1 ([facility]) [place] [address] [facility] [address] 05/26/2020 12:00:00 AM EST eCW1 ([facility] Outpatient Attender: ENRIQUE MAGDALENO MD [facility] Internal Med at [facility] 05/09/2020 12:45:00 PM EST [facility] ([facility] [place] [address] [facility] [address] 05/05/2020 12:00:00 AM EST eCW1 ([facility]) Outpatient [address] [facility] [address] 05/05/2020 12:00:00 AM EST eCW1 ([facility]) [place] [address] [facility] [address] 04/24/2020 12:00:00 AM EST eCW1 ([facility]) Outpatient Attender: Mitchell Cruz MD Main office - [facility] 04/17/2020 08:20:00 AM EDT MEDENT ([facility], ) Outpatient Attender: Mitchell Cruz MD [facility] office - [facility] 04/16/2020 10:00:00 AM EDT MED[facility] ([facility] ) [place] [address] [facility] [address] 04/10/2020 12:00:00 AM EDT eCW1 ([facility]) Unknown [address] [facility] [address] 04/08/2020 12:00:00 AM EDT eCW1 ([facility]) Unknown [address] [facility] [address] 04/02/2020 12:00:00 AM EDT eCW1 ([facility]) [place]patient [address] [facility] [address] 04/01/2020 12:00:00 AM EDT eCW1 ([facility]) Unknown [address] [facility] [address] 04/01/2020 12:00:00 AM EDT eCW1 ([facility]) Unknown [address] [facility] [address] 03/27/2020 12:00:00 AM EDT eCW1 ([facility]) Outpatient Attender: ENRIQUE MAGDALENO MD [facility] Internal Med at [facility] 03/17/2020 02:45:00 PM EDT MED[facility] ([facility]) Outpatient Attender: Darrian Sims MD [facility] Internal Med at [place]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 AM EDT eCW1 ([facility]) Amlodipine 5 MG Oral Tablet 06/23/2020 12:00:00 AM EST eCW1 ([facility]) Amlodipine 5 MG Oral Tablet 06/23/2020 12:00:00 AM EST eCW1 ([facility]) Fluconazole 150 MG Oral Tablet [Diflucan] 06/23/2020 12:00:00 AM ES T eCW1 ([facility]) Doxycycline Monohydrate 100 MG Oral Tablet 06/23/2020 12:00:[address] eCW1 ([facility]) Amlodipine 5 MG Oral Tablet 06/23/2020 12:00:00 AM EST eCW1 ([facility]) Fluconazole 150 MG Oral Tablet [Diflucan] 06/23/2020 12:00:00 AM ES T eCW1 ([facility]) Doxycycline Monohydrate 100 MG Oral Tablet 06/23/2020 12:00:[address] eCW1 ([facility]) Amlodipine 5 MG Oral Tablet 06/23/2020 12:00:00 AM EST eCW1 ([facility]) Fluconazole 150 MG Oral Tablet [Diflucan] 06/23/2020 12:00:00 AM ES T eCW1 ([facility]) Doxycycline Monohydrate 100 MG Oral Tablet 06/23/2020 12:00:[address] eCW1 ([facility]) Amlodipine 5 MG Oral Tablet 06/23/2020 12:00:00 AM EST eCW1 ([facility])
[2021-04-15] MEDS ORDERED: PRED20TA (08:53)
[2021-04-15 09:15] LABS: BASO % 0.2 % (0.0-1.0); EOS # 0.1 10^3/uL (0.0-0.5); EOS % 1.1 % (0.0-3.0); HEMOGLOBIN 13.3 g/dl (12.0-15.5); LYMPH # 2.7 10^3/uL (1.5-5.0); LYMPH % 31.9 % (24.0-44.0); MEAN CORPUSCULAR HGB CONC 33.3 g/dl (32.0-36.5); MEAN CORPUSCULAR VOLUME 90.3 fl (80.0-96.0); MONO # 0.7 10^3/uL (0.0-0.8); MONO % 8.3 % (2.0-8.0); NEUTROPHILS # 4.9 10^3/uL (1.5-8.5); NEUTROPHILS % 58.3 % (36.0-66.0); PLATELET COUNT, AUTOMATED 285 10^3/uL (150-450); RED BLOOD COUNT 4.43 10^6/uL (4.00-5.40); WHITE BLOOD COUNT 8.4 10^3/uL (4.0-10.0)
--- NOTE | 2021-04-15 09:36 | REP ---
INDICATION: CHEST PAIN. COMPARISON: 03/15/2018. TECHNIQUE: Single portable AP view of the chest was performed. FINDINGS: There is no acute infiltrate or pulmonary edema. Lungs are clear. The heart is not significantly enlarged. The mediastinal silhouette is unremarkable. The visualized osseous structures are intact. IMPRESSION: No acute pulmonary disease. <Electronically signed by Brett Osborne > 04/15/21 0932
[2021-04-15] MEDS: NITROGLYCERIN 0.4 MG SUBL TABLET SL PRN ×2 (09:38→10:00)
[2021-04-15 09:50] LABS: ALBUMIN 3.7 GM/DL (3.2-5.2); ALT/SGPT 33 U/L (12-78); BILIRUBIN,DIRECT < 0.1 MG/DL (0.0-0.2); BILIRUBIN,TOTAL 0.3 MG/DL (0.2-1.0); BLOOD UREA NITROGEN 20 MG/DL (7-18); CALCIUM LEVEL 8.3 MG/DL (8.5-10.1); CARBON DIOXIDE LEVEL 27 MEQ/L (21-32); CHLORIDE LEVEL 106 MEQ/L (98-107); CREATININE FOR GFR 0.87 MG/DL (0.55-1.30); GLOMERULAR FILTRATION RATE > 60.0 (>51); GLUCOSE, FASTING 115 MG/DL (70-100); LIPASE 309 U/L (73-393); NT-PRO BNP 487 PG/ML (<125); POTASSIUM SERUM 3.7 MEQ/L (3.5-5.1); SODIUM LEVEL 139 MEQ/L (136-145); TOTAL PROTEIN 6.8 GM/DL (6.4-8.2)
[2021-04-15] MEDS ORDERED: PERCOCET 5MG/325MG TAB PO ONE ×2 (09:50→13:40)
--- OUTSIDE RECORDS SUMMARY | 2021-04-15 09:54 | CCD ---
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 dysfunction of bladder, unspecified Problem 12/16/2020 12:00:00 AM EDT eCW1 ([facility]) N93.9 [id number] Vaginal bleeding Problem 12/04/2020 12:00:00 AM EDT eCW1 (Formerly [facility]) K52.839 [id number] Microscopic colitis, unspecified microscopic colitis type Problem 11/12/2020 12:00:00 AM EDT eCW1 ([facility]) Z68.34 [id number] Body mass index 34.0-34.9, adult Problem 10/28/2020 12:00:00 AM EDT eCW1 (Formerly [facility]) Z87.891 301797690 History of nicotine dependence Problem 10/28/2020 12:00:00 AM EDT eCW1 (Formerly [facility]) M47.27 [id number] 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 Problem 05/26/2020 12:00:00 AM EST eCW1 ([facility]) M54.5 [id number] Lumbar back pain Problem 04/10/2020 12:00:00 AM EDT eCW1 (Formerly [facility]) R29.186 9132170 Leg weakness, bilateral Problem 04/10/2020 1 2:00:00 AM EDT eCW1 (Formerly [facility]) M79.89 [id number] Bilateral hand swelling Problem 04/10/2020 1 2:00:00 AM EDT eCW1 (Formerly [facility]) M54.6 [id number] Acute right-sided thoracic back pain Prob rachelle 04/10/2020 12:00:00 AM EDT eCW1 (Formerly [facility]) N31.9 [id number] Neurogenic bladder Problem 04/10/2020 12:00: 00 AM EDT eCW1 (Formerly [facility]) G89.29 [id number] Other chronic pain Problem 04/02/2020 12:00: 00 AM EDT eCW1 (Formerly [facility]) Surgeries/Procedures Procedure Description Date Indications Data Source(s) Therapeutic, Prophylactic Or Diagnostic Injection Subq/Im 04/09/2021 12:00:00 AM EDT [facility] ([facility], [facility]) OFFICE OUTPATIENT NEW 30 MINUTES 04/09/2021 12:00:00 A M EDT [facility] ([facility], [facility]) ECG ROUTINE ECG W/LEAST 12 LDS W/I&R 02/26/2021 12:00: 00 AM EDT eCW1 (Formerly [facility]) uro PVR (Post Voiding Residual) Bladder Scan 12:00:00 AM EST eCW1 (Formerly [facility]) Results ID Date Data Source [id number] 02/26/2021 12:00:00 AM EDT eCW1 ([facility]) Name Value Range Interpretation Code Description Data Marie rce(s) Supporting Document(s) Hemoglobin A1c/Hemoglobin.total in Blood 5.9 HEMOGLOBIN A1c eCW1 (Formerly [facility]) ID Date Data Source Comprehensive Metabolic Profile (CMP) 02/26/2021 12:00:00 AM EDT eCW1 (Formerly [facility]) Name Value Range Interpretation Code Description Data Marie rce(s) Supporting Document(s) 82 70-100 GLUCOSE, FASTING eCW1 ([facility]) 1.28 0.55-1.30 CREATININE FOR GFR eCW1 ([facility]) 45.4 >51 GLOMERULAR FILTRATION RATE eCW 1 (Formerly [facility]) 19 7-18 BLOOD UREA NITROGEN eCW1 ([facility]) 140 136-145 SODIUM LEVEL eCW1 ([facility]) 4.5 3.5-5.1 POTASSIUM SERUM eCW1 ([facility]) 107 98-107 CHLORIDE LEVEL eCW1 (Formerly [facility]) 9 7-37 AST/SGOT eCW1 ([facility]) 29 21-32 CARBON DIOXIDE LEVEL eCW1 ([facility]) 9.0 8.5-10.1 CALCIUM LEVEL eCW1 (Formerly [facility]) 96 45-117 ALKALINE PHOSPHATASE eCW1 ([facility]) 24 12-78 ALT/SGPT eCW1 ([facility]) 0.3 0.2-1.0 BILIRUBIN,TOTAL eCW1 (Critical [facility] hospital) 6.8 6.4-8.2 TOTAL PROTEIN eCW1 ([facility]ly [facility]) 1.2 1.2-2.2 ALBUMIN/GLOBULIN RATIO eCW1 ([facility]) 3.7 3.2-5.2 ALBUMIN eCW1 ([facility]) ID Date Data Source URINE CULTURE 12/06/2020 12:00:00 AM EDT eCW1 ([facility]) Name Value Range Interpretation Code Description Data Marie rce(s) Supporting Document(s) URINE CULTURE eCW1 (Formerly [facility]) ID Date Data Source PAP REQUEST FOR SERVICE 12/05/2020 12:00:00 AM EDT eCW1 ([facility]) Name Value Range Interpretation Code Description Data Marie rce(s) Supporting Document(s) PAP REQUEST FOR SERVICE eCW1 ( Formerly [facility]) ID Date Data Source NON MANAGER GAME CYTOLOGY REQ FOR SERVI 12/05/2020 12:00:00 AM EDT eC W1 (Formerly [facility]) Name Value Range Interpretation Code Description Data Marie rce(s) Supporting Document(s) URINE eCW1 ([facility]) ID Date Data Source GASTROINTESTINAL GI PANEL (GIPANEL) 11/13/2020 12:00:00 AM EDT eCW1 (Formerly [facility]) Name Value Range Interpretation Code Description Data Marie rce(s) Supporting Document(s) This Gastrointestinal PCR Panel detects the following bacteria, GASTROINTESTINAL (GI) PANEL eCW1 (Formerly [facility]) ID Date Data Source Urinalysis, no micro 04/01/2020 03:21:32 AM EDT eCW1 ([facility]) Name Value Range Interpretation Code Description Data Marie rce(s) Supporting Document(s) 1.010 Spec gravity eCW1 ([facility]) 5 pH eCW1 ([facility]) neg Protein eCW1 ([facility]) normal Glucose eCW1 ([facility]) neg Nitrate eCW1 ([facility]) 1+ Leukocyte eCW1 ([facility]) neg Ketones eCW1 ([facility]) neg Bilirubin eCW1 ([facility]) neg Blood eCW1 ([facility]) normal Urobili eCW1 ([facility]) yes Internal QC Acceptable (Y/N) e CW1 (Formerly [facility]) ID Date Data Source [id number] 03/05/2020 08:09:43 AM EDT [facility] Name Value Range Interpretation Code Description Data Marie rce(s) Supporting Document(s) SODIUM 139 mmol/L (136-145) [facility] POTASSIUM 4.9 mmol/L (3.6-5.2) [facility] CHLORIDE 105 mmol/L (100-108) [facility] CO2 25 mmol/L (22-31) [facility] ANION GAP 9 mmol/L (7-16) [facility] UREA NITROGEN 24 mg/dL (7-24) [facility] CREATININE 0.90 mg/dL (0.60-1.00) [facility] BUN/CREAT RATIO 26.7 RATIO (10.0-20.0) H [facility] GLUCOSE 118 mg/dL (70-99) H [facility] CALCIUM 8.8 mg/dL (8.4-10.2) [facility] GFR >60 ml/min/1.73m2 (>59) [facility] GFR ( AMER) >60 ml/min/1.73m2 (>59) [facility] GFR INTERPRETATION [facility] --NORMAL KIDNEY FUNCTION OR MILD DISEASE - GFR >OR= 60CHRONIC KIDNEY DISEASE - GFR 15 - 59RENAL FAILURE - GFR <15 Est. GFR calculation based on the MDRDstudy equation, which assumes a steadystate for creatinine. Est. GFR should notbe used for medication dosing. ID Date Data Source [id number] 03/05/2020 07:52:18 AM EDT [facility] Name Value Range Interpretation Code Description Data Marie rce(s) Supporting Document(s) PT 10.0 s (9.2-11.9) [facility] INR 0.95 [facility] SUGGESTED THERAPEUTIC RANGES USING INR F ORSTABILIZED ANTICOAGULATED PATIENTS:STANDARD DOSE THERAPY INR 2.0-3.0 DVT, PE, PREVENT DVT OR EMBOLISMHIGH DOSE THERAPY INR 2.5-3.5 PREVENT EMBOLISM FROM MECHANICAL HEART VALVE ID Date Data Source [id number] 03/05/2020 07:44:34 AM EDT [facility] Name Value Range Interpretation Code Description Data Marie rce(s) Supporting Document(s) WBC 10.3 10*3/uL (4.1-11.0) [facility] RBC 4.53 10*6/uL (4.00-5.40) [facility] HGB 13.7 g/dL (12.0-16.0) [facility] HCT 41.2 % (36.0-47.0) [facility] MCV 91.0 fL (80.0-95.0) [facility] MCH 30.3 pg (27.0-32.0) [facility] MCHC 33.3 g/dL (32.0-36.0) [facility] RDW 13.1 % (10.5-14.5) [facility] PLT 294 10*3/uL (150-450) [facility] MPV 8.6 fL (7.1-10.7) [facility] NEUT % 87.3 % (35.0-75.0) H [facility] LYMPH % 10.2 % (16.0-52.0) L [facility] MONO % 2.4 % (0.0-8.0) [facility] EOS % 0.0 % (0.0-5.0) [facility] BASO % 0.1 % (0.0-4.0) [facility] NEUT # 9.0 10*3/uL (1.8-7.7) H [facility] LYMPH # 1.1 10*3/uL (1.2-4.8) L [facility] MONO # 0.2 10*3/uL (0.0-0.8) [facility] Eosinophils [#/volume] in Blood by Automated count 0.0 10*3/uL (0.0-0 .5) [facility] BASO # 0.0 10*3/uL (0.0-0.2) [facility] ID Date Data Source [id number] 03/04/2020 10:08:11 PM EDT [facility] Name Value Range Interpretation Code Description Data Marie rce(s) Supporting Document(s) APTT 25.5 s (22.0-34.3) [facility] ID Date Data Source [id number] 02/28/2020 11:04:41 AM EDT [facility] PC[facility]: Margarita Waller: 2Provider: Milka [...] wearing a seatbelt. [facility] seen [facility]. She had CT scans of [...] pain; PORTILLO = N; Verified Transmission to [id number]; Msg to Pharmacy: [facility] 02/12/20; Last Updated By: [employer]; 02/22/2020 10:23:14 AM MRI (SOS) Referral Diagnostic Diagnostic Status: Need Information - FinancialAuthorization Requested for: [id number] Ordered;For: Lower back pain; Ordered By: Ronda Blake Performed: Order Com ments: [facility] 02/12/20 lumbar Due: [id number]; Last Updated By: Mari Rose; 02/22/2020 10:21:12 AMPatient will follow up with: : new jaiMRI Ordered Contrast : 01: without gadoLaterality: : _Not Applicable Work Note (SOS) Treatment Treatment Status: Complete Done: [id number] Ordered;For: Health Maintenance; Ordered By: Ronda Blake Performed: Due: [id number]; Last Updated By: Mari Rose; 02/22/2020 10:21:12 [...] document was dictated and electronically signed using [employer] software. A reasonable attempt at proof reading [...] 12:00:00 AM EDT Quit completed Quit [facility] ([facility], [facility]) Smoking 03/18/2021 12:00:00 AM EDT Former Smoker completed Former Smoker eCW1 (Formerly [facility]) Smoking 03/18/2021 12:00:00 AM EDT Former Smoker completed Former Smoker eCW1 (Formerly [facility]) Smoking 03/18/2021 12:00:00 AM EDT Former Smoker completed Former Smoker eCW1 ([facility]ly [facility]) Smoking 03/18/2021 12:00:00 AM EDT Former Smoker completed Former Smoker eCW1 ([facility]ly [facility]) Smoking 02/26/2021 12:00:00 AM EDT Former Smoker completed Former Smoker eCW1 ([facility]ly [facility]) Smoking 02/26/2021 12:00:00 AM EDT Former Smoker completed Former Smoker eCW1 ([facility]ly [facility]) Smoking 02/10/2021 12:00:00 AM EDT Former Smoker completed Former Smoker eCW1 ([facility]ly [facility]) Smoking 02/10/2021 12:00:00 AM EDT Former Smoker completed Former Smoker eCW1 ([facility]ly [facility]) Smoking 02/10/2021 12:00:00 AM EDT Former Smoker completed Former Smoker eCW1 ([facility]ly [facility]) Smoking 02/10/2021 12:00:00 AM EDT Former Smoker completed Former Smoker eCW1 ([facility]ly [facility]) Smoking 12/31/2020 12:00:00 AM EDT Former Smoker completed Former Smoker eCW1 ([facility]ly [facility]) Smoking 12/11/2020 12:00:00 AM EDT Former Smoker completed Former Smoker eCW1 ([facility]ly [facility]) Smoking 12/11/2020 12:00:00 AM EDT Former Smoker completed Former Smoker eCW1 ([facility]ly [facility]) Smoking 12/11/2020 12:00:00 AM EDT Former Smoker completed Former Smoker eCW1 ([facility]ly [facility]) Smoking 12/11/2020 12:00:00 AM EDT Former Smoker completed Former Smoker eCW1 ([facility]ly [facility]) Smoking 12/04/2020 12:00:00 AM EDT Former Smoker completed Former Smoker eCW1 ([facility]ly [facility]) Smoking 12/04/2020 12:00:00 AM EDT Former Smoker completed Former Smoker eCW1 ([facility]ly [facility]) Smoking 11/26/2020 12:00:00 AM EDT Former Smoker completed Former Smoker eCW1 ([facility]ly [facility]) Smoking 11/12/2020 12:00:00 AM EDT Former Smoker completed Former Smoker eCW1 ([facility]ly [facility]) Smoking 11/12/2020 12:00:00 AM EDT Former Smoker completed Former Smoker eCW1 ([facility]ly [facility]) Smoking 10/28/2020 12:00:00 AM EDT Former Smoker completed Former Smoker eCW1 ([facility]ly [facility]) Smoking 06/23/2020 12:00:00 AM EST Former Smoker completed Former Smoker eCW1 ([facility]ly [facility]) Smoking 06/23/2020 12:00:00 AM EST Former Smoker completed Former Smoker eCW1 ([facility]ly [facility]) Smoking 06/23/2020 12:00:00 AM EST Former Smoker completed Former Smoker eCW1 ([facility]ly [facility]) Smoking 05/26/2020 12:00:00 AM EST Former Smoker completed Former Smoker eCW1 ([facility]ly [facility]) Smoking 05/26/2020 12:00:00 AM EST Former Smoker completed Former Smoker eCW1 ([facility]ly [facility]) Smoking 05/26/2020 12:00:00 AM EST Former Smoker completed Former Smoker eCW1 ([facility]ly [facility]) Smoking 05/05/2020 12:00:00 AM EST Former Smoker completed Former Smoker eCW1 ([facility]ly [facility]) Smoking 04/11/2020 12:00:00 AM EDT Former Smoker completed Former Smoker eCW1 ([facility]ly [facility]) Smoking 04/01/2020 12:00:00 AM EDT Former Smoker completed Former Smoker eCW1 ([facility]ly [facility]) Smoking 04/01/2020 12:00:00 AM EDT Former Smoker completed Former Smoker eCW1 ([facility]ly [facility]) Smoking 04/01/2020 12:00:00 AM EDT Former Smoker completed Former Smoker eCW1 ([facility]ly [facility]) Smoking 04/01/2020 12:00:00 AM EDT Former Smoker completed Former Smoker eCW1 ([facility]ly [facility]) Smoking 03/17/2020 12:00:00 AM EDT Patient has n ever smoked (pipe, cigarette, cigar) completed Patient has never smoked (pipe, cigarett e, cigar) [facility] Smoking 03/04/2020 07:28:00 PM EDT Former Smoker completed Former Smoker [facility] Vital Signs ID Date Data Source UNK Name Value Range Interpretation Code Description Data Source(s) Diastolic blood pressure 83 mm[Hg] 83 mm[Hg] [facility] ([facility]) Systolic blood pressure 168 mm[Hg] 168 mm[Hg] [facility] Oxygen saturation in Arterial blood by Pulse oximetry 97 % 97 % [facility] ([facility]) Body temperature 97.8 [degF] 97.8 [degF] [facility] ([facility]) Body weight 164.00 [lb_av] 164.00 [lb_av] [facility] T ([facility], [facility]) Body height 58.5 [in_i] 58.5 [in_i] [facility] ([facility], [facility]) 4'10.50" Body mass index (BMI) [Ratio] 33.7 kg/m2 33.7 k g/m2 [facility] ([facility], [facility]) Heart rate 56 /min 56 /min [facility] ([facility], [facility]) Respiratory rate 16 /min 16 /min [facility] ( [facility], [facility]) Body weight 170 [lb_av] 170 [lb_av] eCW1 ([facility]) Body height 59 [in_i] 59 [in_i] eCW1 ([facility]) Body mass index (BMI) [Ratio] 34.33 kg/m2 34.33 kg/m2 eCW1 ([facility]) Systolic blood pressure 118 mm[Hg] 118 mm[Hg] e CW1 ([facility]ly [facility]) Diastolic blood pressure 68 mm[Hg] 68 mm[Hg] eCW1 ([facility]ly [facility]) Body weight 165 [lb_av] 165 [lb_av] eCW1 ([facility]) Body height 59 [in_i] 59 [in_i] eCW1 ([facility]) Body mass index (BMI) [Ratio] 33.32 kg/m2 33.32 kg/m2 eCW1 ([facility]) Body temperature 97.3 [degF] 97.3 [degF] eCW1 ( [facility]) Systolic blood pressure 120 mm[Hg] 120 mm[Hg] e CW1 ([facility]) Diastolic blood pressure 70 mm[Hg] 70 mm[Hg] eCW1 ([facility]) Heart rate 74 /min 74 /min eCW1 ([facility]) Respiratory rate 18 /min 18 /min eCW1 ([facility]) Body weight 168.8 [lb_av] 168.8 [lb_av] eCW1 ([facility]) Body height 59 [in_i] 59 [in_i] eCW1 ([facility]) Body mass index (BMI) [Ratio] 34.09 kg/m2 34.09 kg/m2 eCW1 ([facility]) Systolic blood pressure 140 mm[Hg] 140 mm[Hg] e CW1 ([facility]) Diastolic blood pressure 78 mm[Hg] 78 mm[Hg] eCW1 ([facility]) Body weight 168 [lb_av] 168 [lb_av] eCW1 ([facility]) Heart rate 88 /min 88 /min eCW1 ([facility]) Respiratory rate 18 /min 18 /min eCW1 ([facility]) Body temperature 97.9 [degF] 97.9 [degF] eCW1 ( [facility]) Systolic blood pressure 150 mm[Hg] 150 mm[Hg] e CW1 ([facility]) Diastolic blood pressure 70 mm[Hg] 70 mm[Hg] eCW1 ([facility]) Body height 59 [in_i] 59 [in_i] eCW1 ([facility]) Body mass index (BMI) [Ratio] 33.93 kg/m2 33.93 kg/m2 eCW1 ([facility]) Body weight 165 [lb_av] 165 [lb_av] eCW1 ([facility]) Body height 59 [in_i] 59 [in_i] eCW1 ([facility]) Body mass index (BMI) [Ratio] 33.32 kg/m2 33.32 kg/m2 eCW1 ([facility]) Heart rate 90 /min 90 /min eCW1 ([facility]) Respiratory rate 18 /min 18 /min eCW1 ([facility]) Body temperature 98.3 [degF] 98.3 [degF] eCW1 ( [facility]) Systolic blood pressure 130 mm[Hg] 130 mm[Hg] e CW1 ([facility]ly [facility]) Diastolic blood pressure 60 mm[Hg] 60 mm[Hg] eCW1 (Formerly [facility]) Diastolic blood pressure 70 mm[Hg] 70 mm[Hg] eCW1 ([facility]ly [facility]) Body weight 168.4 [lb_av] 168.4 [lb_av] eCW1 ([facility]) Body height 59 [in_i] 59 [in_i] eCW1 ([facility]) Body mass index (BMI) [Ratio] 34.01 kg/m2 34.01 kg/m2 eCW1 ([facility]ly [facility]) Heart rate 88 /min 88 /min eCW1 ([facility]) Respiratory rate 20 /min 20 /min eCW1 ([facility]) Body temperature 98.4 [degF] 98.4 [degF] eCW1 ( [facility]ly [facility]) Systolic blood pressure 140 mm[Hg] 140 mm[Hg] e CW1 (Formerly [facility]) Body weight 169 [lb_av] 169 [lb_av] eCW1 ([facility]) Body height 59 [in_i] 59 [in_i] eCW1 ([facility]) Body mass index (BMI) [Ratio] 34.13 kg/m2 34.13 kg/m2 eCW1 ([facility]ly [facility]) Heart rate 70 /min 70 /min eCW1 ([facility] hospital) Respiratory rate 18 /min 18 /min eCW1 ([facility]) Body temperature 98 [degF] 98 [degF] eCW1 ([facility]) Systolic blood pressure 132 mm[Hg] 132 mm[Hg] e CW1 ([facility]ly [facility]) Diastolic blood pressure 68 mm[Hg] 68 mm[Hg] eCW1 ([facility]ly [facility]) Diastolic blood pressure 70 mm[Hg] 70 mm[Hg] eCW1 (Formerly [facility]) Body weight 170.6 [lb_av] 170.6 [lb_av] eCW1 ([facility]) Body height 59 [in_i] 59 [in_i] eCW1 ([facility]) Body mass index (BMI) [Ratio] 34.45 kg/m2 34.45 kg/m2 eCW1 (Formerly [facility]) Heart rate 82 /min 82 /min eCW1 ([facility]) Respiratory rate 18 /min 18 /min eCW1 ([facility]) Body temperature 98 [degF] 98 [degF] eCW1 ([facility]) Systolic blood pressure 140 mm[Hg] 140 mm[Hg] e CW1 (Formerly [facility]) Body weight 173.2 [lb_av] 173.2 [lb_av] eCW1 ([facility]) Body height 59 [in_i] 59 [in_i] eCW1 ([facility]) Body mass index (BMI) [Ratio] 34.98 kg/m2 34.98 kg/m2 eCW1 (Formerly [facility]) Heart rate 76 /min 76 /min eCW1 (Critical access hospital) Respiratory rate 18 /min 18 /min eCW1 ([facility]) Body temperature 97.8 [degF] 97.8 [degF] eCW1 ( Formerly [facility]) Systolic blood pressure 138 mm[Hg] 138 mm[Hg] e CW1 (Formerly [facility]) Diastolic blood pressure 78 mm[Hg] 78 mm[Hg] eCW1 (Formerly [facility]) Body weight 167.6 [lb_av] 167.6 [lb_av] eCW1 ([facility]) Body height 59 [in_i] 59 [in_i] eCW1 ([facility]) Body mass index (BMI) [Ratio] 33.85 kg/m2 33.85 kg/m2 eCW1 (Formerly [facility]) Heart rate 82 /min 82 /min eCW1 (Critical access hospital) Respiratory rate 18 /min 18 /min eCW1 ([facility]) Body temperature 98 [degF] 98 [degF] eCW1 ([facility]) Systolic blood pressure 180 mm[Hg] 180 mm[Hg] e CW1 ([facility]ly [facility]) Diastolic blood pressure 86 mm[Hg] 86 mm[Hg] eCW1 (Formerly [facility]) Body weight 170 [lb_av] 170 [lb_av] eCW1 ([facility]) Body height 59 [in_i] 59 [in_i] eCW1 ([facility]) Body mass index (BMI) [Ratio] 34.33 kg/m2 34.33 kg/m2 eCW1 (Formerly [facility]) Heart rate 68 /min 68 /min eCW1 (Critical access hospital) Respiratory rate 18 /min 18 /min eCW1 ([facility]) Body temperature 97.2 [degF] 97.2 [degF] eCW1 ( [facility]ly [facility]) Systolic blood pressure 170 mm[Hg] 170 mm[Hg] e CW1 ([facility]ly [facility]) Diastolic blood pressure 80 mm[Hg] 80 mm[Hg] eCW1 ([facility]ly [facility]) Body height 58.50 [in_i] 58.50 [in_i] MEDENT [...] Body weight 168 [lb_av] 168 [lb_av] eCW1 ([facility]) Body height 59 [in_i] 59 [in_i] eCW1 ([facility]) Body mass index (BMI) [Ratio] 33.93 kg/m2 33.93 kg/m2 eCW1 ([facility]ly [facility]) Heart rate 56 /min 56 /min eCW1 (Critical access hospital) Respiratory rate 18 /min 18 /min eCW1 ([facility]) Body temperature 97.2 [degF] 97.2 [degF] eCW1 ( [facility]ly [facility]) Systolic blood pressure 162 mm[Hg] 162 mm[Hg] e CW1 ([facility]ly [facility]) Diastolic blood pressure 85 mm[Hg] 85 mm[Hg] eCW1 ([facility]ly [facility]) Body weight 170.4 [lb_av] 170.4 [lb_av] eCW1 ([facility]) Body height 59 [in_i] 59 [in_i] eCW1 ([facility]) Body mass index (BMI) [Ratio] 34.41 kg/m2 34.41 kg/m2 eCW1 ([facility]ly [facility]) Heart rate 92 /min 92 /min eCW1 (Critical access hospital) Respiratory rate 18 /min 18 /min eCW1 ([facility]) Body temperature 97.1 [degF] 97.1 [degF] eCW1 ( [facility]ly [facility]) Systolic blood pressure 124 mm[Hg] 124 mm[Hg] e CW1 ([facility]ly [facility]) Diastolic blood pressure 60 mm[Hg] 60 mm[Hg] eCW1 (Formerly [facility]) [place] body weight 100 [lb_av] 100 [lb_av] MEDEN T ([facility], ) Respiratory rate 12 /min 12 /min MEDENT ( [facility], ) Body height 58.5 [in_i] 58.5 [in_i] MEDENT ([facility], ) 4'10.50" Body weight 163.00 [lb_av] 163.00 [lb_av] MEDEN T ([facility], ) Body mass index (BMI) [Ratio] 33.5 kg/m2 33.5 k g/m2 MEDENT ([facility], ) Body height 58.5 [in_i] 58.5 [in_i] MEDENT ([facility], ) 4'10.50" Body weight 161.00 [lb_av] 161.00 [lb_av] MEDEN T ([facility], ) Respiratory rate 12 /min 12 /min MEDENT ( [facility] ) Body mass index (BMI) [Ratio] 33.1 kg/m2 33.1 k g/m2 MEDENT ([facility] ) [place] body weight 100 [lb_av] 100 [lb_av] MEDEN T ([facility], ) Body weight 168 [lb_av] 168 [lb_av] eCW1 ([facility]) Body height 59 [in_i] 59 [in_i] eCW1 ([facility]) Body mass index (BMI) [Ratio] 33.93 kg/m2 33.93 kg/m2 eCW1 ([facility]ly [facility]) Heart rate 80 /min 80 /min eCW1 (Critical access hospital) Respiratory rate 18 /min 18 /min eCW1 ([facility]) Body temperature 97.4 [degF] 97.4 [degF] eCW1 ( [facility]ly [facility]) Systolic blood pressure 138 mm[Hg] 138 mm[Hg] e CW1 ([facility]ly [facility]) Diastolic blood pressure 70 mm[Hg] 70 mm[Hg] eCW1 ([facility]ly [facility]) Body height 58.5 [in_i] 58.5 [in_i] MEDENT ([facility], ) 4'10.50" Respiratory rate 12 /min 12 /min MEDENT ( [facility], ) Body weight 161.00 [lb_av] 161.00 [lb_av] MEDEN T ([facility], ) Body mass index (BMI) [Ratio] 33.1 kg/m2 33.1 k g/m2 MEDENT ([facility], ) [place] body weight 100 [lb_av] 100 [lb_av] MEDEN T ([facility], ) Body weight 172 [lb_av] 172 [lb_av] eCW1 ([facility]) Body height 59 [in_i] 59 [in_i] eCW1 ([facility]) Body mass index (BMI) [Ratio] 34.74 kg/m2 34.74 kg/m2 eCW1 ([facility]ly [facility]) Heart rate 73 /min 73 /min eCW1 (Critical access hospital) Respiratory rate 18 /min 18 /min eCW1 ([facility]) Body temperature 96.7 [degF] 96.7 [degF] eCW1 ( [facility]ly [facility]) Systolic blood pressure 102 mm[Hg] 102 mm[Hg] e CW1 ([facility]ly [facility]) Diastolic blood pressure 60 mm[Hg] 60 mm[Hg] eCW1 ([facility]ly [facility]) Body height 58.50 [in_i] 58.50 [in_i] MEDENT ([facility]) 4'10.50" Body weight 173.00 [lb_av] 173.00 [lb_av] MEDEN T ([facility]) Body mass index (BMI) [Ratio] 35.5 kg/m2 35.5 k g/m2 MEDENT ([facility]) Systolic blood pressure 111 mm[Hg] 111 mm[Hg] M EDENT ([facility]) Diastolic blood pressure 66 mm[Hg] 66 mm[Hg] MEDENT ([facility]) Heart rate 60 /min 60 /min [facility] ([facility]) Systolic blood pressure 150 mm[Hg] Normal (applies t o non-numeric results) 150 mm[Hg] [facility] Diastolic blood pressure 78 mm[Hg] Normal (applies to non-numeric results) 78 mm[Hg] [facility] Heart rate 65 min Normal (applies to non-numeric resul ts) [address] [facility] Respiratory rate 18 min Normal (applies to non-numeric results) [address] [facility] Deprecated Oxygen saturation in Capillary blood by Oximetry 100 % Normal (applies to non-numeric results) 100 % [facility] Body temperature 36.8 erasmo Normal (applies to non-numeric results) 36.[address] [facility] Body height 146.304 cm Normal (applies to non-numeric resu lts) 146.[address] [facility] Body mass index (BMI) [Ratio] 35.11 kg/m2 No rmal (applies to non-numeric results) 35.11 kg/m2 [facility] Body weight Measured 168 [lb_av] Normal (applies to n on-numeric results) 168 [lb_av] [facility] Patient Treatment Plan of Care Planned Activity Planned Date Details Description Data Source (s) Prednisone 10 MG Oral Tablet 12/11/2020 12:00:00 AM EDT eCW1 (Formerly [facility]) Prednisone 10 MG Oral Tablet 12/11/2020 12:00:00 AM EDT eCW1 (Formerly [facility]) Prednisone 10 MG Oral Tablet 12/11/2020 12:00:00 AM EDT eCW1 (Formerly [facility]) Prednisone 10 MG Oral Tablet 12/11/2020 12:00:00 AM EDT eCW1 (Formerly [facility]) Colestipol Hydrochloride 1000 MG Oral Tablet 11/26/2020 12:00:00 AM EDT eCW1 (Formerly [facility]) Metronidazole 500 MG Oral Tablet [Flagyl] 11/26/2020 12:00:00 AM ED T eCW1 ([facility]ly [facility]) Budesonide 3 MG Delayed Release Oral Capsule 11/12/2020 12:00:00 AM EDT eCW1 ([facility]ly [facility]) Budesonide 3 MG Delayed Release Oral Capsule 11/12/2020 12:00:00 AM EDT eCW1 (Formerly [facility]) Amlodipine 5 MG Oral Tablet 06/23/2020 12:00:00 AM EST eCW1 ([facility]ly [facility]) Amlodipine 5 MG Oral Tablet 06/23/2020 12:00:00 AM EST eCW1 (Formerly [facility]) Fluconazole 150 MG Oral Tablet [Diflucan] 06/23/2020 12:00:00 AM ES T eCW1 ([facility]ly [facility]) Doxycycline Monohydrate 100 MG Oral Tablet 06/23/2020 12:00:[address] eCW1 ([facility]ly [facility]) Amlodipine 5 MG Oral Tablet 06/23/2020 12:00:00 AM EST eCW1 ([facility]ly [facility]) Fluconazole 150 MG Oral Tablet [Diflucan] 06/23/2020 12:00:00 AM ES T eCW1 (Formerly [facility]) Doxycycline Monohydrate 100 MG Oral Tablet 06/23/2020 12:00:[address] eCW1 ([facility]ly [facility]) Amlodipine 5 MG Oral Tablet 06/23/2020 12:00:00 AM EST eCW1 ([facility]ly [facility]) Fluconazole 150 MG Oral Tablet [Diflucan] 06/23/2020 12:00:00 AM ES T eCW1 ([facility]ly [facility]) Doxycycline Monohydrate 100 MG Oral Tablet 06/23/2020 12:00:[address] eCW1 ([facility]ly [facility]) Amlodipine 5 MG Oral Tablet 06/23/2020 12:00:00 AM EST eCW1 (Formerly [facility])
--- NOTE | 2021-04-15 11:06 | REP ---
INDICATION: paresthesia. COMPARISON: 03/15/2018. TECHNIQUE: CT brain performed in the axial plane. Coronal reconstruction images are performed. FINDINGS: The ventricles are normal in size and position.. There is no midline shift or mass effect. Osborne-white differentiation is well maintained. There is no acute intracranial hemorrhage or extra-axial fluid collection. Bone window examination is unremarkable. The visualized mastoid air cells and paranasal sinuses are clear. IMPRESSION: Negative noncontrast CT brain. <Electronically signed by Brett Osborne > 04/15/21 1100
--- NOTE | 2021-04-15 13:01 | REPVR ---
PROCEDURE INFORMATION: Exam: MR Head Without Contrast Exam date and time: 04/15/2021 12:13 PM Age: 61 years old Clinical indication: Numbness / parasthesia; Right; Additional info: Paresthesia right side TECHNIQUE: Imaging protocol: MR of the head without contrast. COMPARISON: CT Head without contrast 04/15/2021 10:39 AM FINDINGS: Brain: There is no extra-axial collection or intra-axial mass. There are scattered foci of T2/FLAIR hyperintensity within the periventricular and juxtacortical white matter asymmetric to the right. There is no diffusion restriction. Sella: There is a partially empty sella. Cerebral ventricles: Normal. No ventriculomegaly. Bones/joints: Unremarkable. Paranasal sinuses: Normal as visualized. No acute sinusitis. Mastoid air cells: Normal as visualized. No mastoid effusion. Orbital cavity: Unremarkable. Soft tissues: Unremarkable. IMPRESSION: Nonspecific T2/FLAIR white matter hyperintensities asymmetric to the right, potentially small vessel ischemia, demyelination or sequelae of migraine headaches. Electronically signed by: Josephine Berrios On 04/15/2021 13:00:36 PM
--- NOTE | 2021-04-15 13:03 | REPVR ---
PROCEDURE INFORMATION: Exam: MRA Head Without Contrast; Arteriography Exam date and time: 04/15/2021 12:13 PM Age: 61 years old Clinical indication: Other: Right sided parathesia; Additional info: Parethesia right side TECHNIQUE: Imaging protocol: Magnetic resonance angiography head without contrast. Exam focused on the arteries. COMPARISON: MRA BRAIN W/O CONTRAST 03/15/2018 9:41 PM FINDINGS: ANTERIOR CIRCULATION: Right internal carotid artery: Intracranial segment is patent with no significant stenosis. No aneurysm. Right middle cerebral artery: No occlusion or significant stenosis. No aneurysm. Right anterior cerebral artery: No occlusion or significant stenosis. No aneurysm. Left internal carotid artery: Intracranial segment is patent with no significant stenosis. No aneurysm. Left middle cerebral artery: No occlusion or significant stenosis. No aneurysm. Left anterior cerebral artery: No occlusion or significant stenosis. No aneurysm. POSTERIOR CIRCULATION: Right vertebral artery: No occlusion or significant stenosis. No aneurysm. Left vertebral artery: No occlusion or significant stenosis. No aneurysm. Basilar artery: No occlusion or significant stenosis. No aneurysm. Right posterior cerebral artery: No occlusion or significant stenosis. No aneurysm. Left posterior cerebral artery: No occlusion or significant stenosis. No aneurysm. IMPRESSION: No stenosis or occlusion. Electronically signed by: Josephine Berrios On 04/15/2021 13:02:32 PM
--- OUTSIDE RECORDS SUMMARY | 2021-04-15 14:00 | CCD ---
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 ([facility]) N93.9 Abnormal uterine bleeding Abnormal uterine bleeding (A UB) Problem 02/15/2021 12:00:00 AM EDT eCW1 ([facility]) 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 dysfunction of bladder, unspecified Problem 12/16/2020 12:00:00 AM EDT eCW1 ([facility]) N93.9 [id number] Vaginal bleeding Problem 12/04/2020 12:00:00 AM EDT eCW1 ([facility]) K52.839 [id number] Microscopic colitis, unspecified microscopic colitis type Problem 11/12/2020 12:00:00 AM EDT eCW1 ([facility]) Z68.34 [id number] Body mass index 34.0-34.9, adult Problem 10/28/2020 12:00:00 AM EDT eCW1 ([facility]) Z87.891 [id number] History of nicotine dependence Problem 10/28/2020 12:00:00 AM EDT eCW1 ([facility]) M47.27 [id number] 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 Problem 05/26/2020 12:00:00 AM EST eCW1 ([facility]) M54.5 [id number] Lumbar back pain Problem 04/10/2020 12:00:00 AM EDT eCW1 ([facility]) R29.401 0479644 Leg weakness, bilateral Problem 04/10/2020 1 2:00:00 AM EDT eCW1 ([facility]) M79.89 [id number] Bilateral hand swelling Problem 04/10/2020 1 2:00:00 AM EDT eCW1 ([facility]) M54.6 [id number] Acute right-sided thoracic back pain Prob rachelle 04/10/2020 12:00:00 AM EDT eCW1 ([facility]) N31.9 [id number] Neurogenic bladder Problem 04/10/2020 12:00: 00 AM EDT eCW1 ([facility]) G89.29 [id number] Other chronic pain Problem 04/02/2020 12:00: 00 AM EDT eCW1 ([facility]) Surgeries/Procedures Procedure Description Date Indications Data Source(s) Therapeutic, Prophylactic Or Diagnostic Injection Subq/Im 04/09/2021 12:00:00 AM EDT MEDENT ([facility]) OFFICE OUTPATIENT NEW 30 MINUTES 04/09/2021 12:00:00 A M EDT MEDENT ([facility], [facility]) ECG ROUTINE ECG W/LEAST 12 LDS W/I&R 02/26/2021 12:00: 00 AM EDT eCW1 ([facility]) uro PVR (Post Voiding Residual) Bladder Scan 12:00:00 AM EST eCW1 ([facility]) Results ID Date Data Source [id number] 02/26/2021 12:00:00 AM EDT eCW1 ([facility]) Name Value Range Interpretation Code Description Data Marie rce(s) Supporting Document(s) Hemoglobin A1c/Hemoglobin.total in Blood 5.9 HEMOGLOBIN A1c eCW1 ([facility]) ID Date Data Source Comprehensive Metabolic Profile (CMP) 02/26/2021 12:00:00 AM EDT eCW1 ([facility]) Name Value Range Interpretation Code Description Data Marie rce(s) Supporting Document(s) 82 70-100 GLUCOSE, FASTING eCW1 ([facility]) 1.28 0.55-1.30 CREATININE FOR GFR eCW1 ([facility]) 45.4 >51 GLOMERULAR FILTRATION RATE eCW 1 ([facility]) 19 7-18 BLOOD UREA NITROGEN eCW1 ([facility]) 140 136-145 SODIUM LEVEL eCW1 ([facility]) 4.5 3.5-5.1 POTASSIUM SERUM eCW1 ([facility]) 107 98-107 CHLORIDE LEVEL eCW1 ([facility]) 9 7-37 AST/SGOT eCW1 ([facility]) 29 21-32 CARBON DIOXIDE LEVEL eCW1 ([facility]) 9.0 8.5-10.1 CALCIUM LEVEL eCW1 ([facility]) 96 45-117 ALKALINE PHOSPHATASE eCW1 ([facility]) 24 12-78 ALT/SGPT eCW1 ([facility]) 0.3 0.2-1.0 BILIRUBIN,TOTAL eCW1 ([facility]) 6.8 6.4-8.2 TOTAL PROTEIN eCW1 ([facility]) 1.2 1.2-2.2 ALBUMIN/GLOBULIN RATIO eCW1 ([facility]) 3.7 3.2-5.2 ALBUMIN eCW1 ([facility]) ID Date Data Source URINE CULTURE 12/06/2020 12:00:00 AM EDT eCW1 ([facility]) Name Value Range Interpretation Code Description Data Marie rce(s) Supporting Document(s) URINE CULTURE eCW1 ([facility]) ID Date Data Source PAP REQUEST FOR SERVICE 12/05/2020 12:00:00 AM EDT eCW1 ([facility]) Name Value Range Interpretation Code Description Data Marie rce(s) Supporting Document(s) PAP REQUEST FOR SERVICE eCW1 ( [facility]) ID Date Data Source NON PLASTERER MAINTENANCE CYTOLOGY REQ FOR SERVI 12/05/2020 12:00:00 AM EDT eC W1 ([facility]) Name Value Range Interpretation Code Description Data Marie rce(s) Supporting Document(s) URINE eCW1 ([facility]) ID Date Data Source GASTROINTESTINAL GI PANEL (GIPANEL) 11/13/2020 12:00:00 AM EDT eCW1 ([facility]) Name Value Range Interpretation Code Description Data Marie rce(s) Supporting Document(s) This Gastrointestinal PCR Panel detects the following bacteria, GASTROINTESTINAL (GI) PANEL eCW1 ([facility]) ID Date Data Source Urinalysis, no micro 04/01/2020 03:21:32 AM EDT eCW1 ([facility]) Name Value Range Interpretation Code Description Data Marie rce(s) Supporting Document(s) 1.010 Spec gravity eCW1 ([facility]) 5 pH eCW1 ([facility]) neg Protein eCW1 ([facility]) normal Glucose eCW1 ([facility]) neg Nitrate eCW1 ([facility]) 1+ Leukocyte eCW1 ([facility]) neg Ketones eCW1 ([facility]) neg Bilirubin eCW1 ([facility]) neg Blood eCW1 ([facility]) normal Urobili eCW1 ([facility]) yes Internal QC Acceptable (Y/N) e CW1 ([facility]) ID Date Data Source [id number] 03/05/2020 08:09:43 AM EDT [facility] Name Value Range Interpretation Code Description Data Marie rce(s) Supporting Document(s) SODIUM 139 mmol/L (136-145) [facility] POTASSIUM 4.9 mmol/L (3.6-5.2) [facility] CHLORIDE 105 mmol/L (100-108) [facility] CO2 25 mmol/L (22-31) [facility] ANION GAP 9 mmol/L (7-16) [facility] UREA NITROGEN 24 mg/dL (7-24) [facility] CREATININE 0.90 mg/dL (0.60-1.00) [facility] BUN/CREAT RATIO 26.7 RATIO (10.0-20.0) H [facility] GLUCOSE 118 mg/dL (70-99) H [facility] CALCIUM 8.8 mg/dL (8.4-10.2) [facility] GFR >60 ml/min/1.73m2 (>59) [facility] GFR ( AMER) >60 ml/min/1.73m2 (>59) [facility] GFR INTERPRETATION [facility] --NORMAL KIDNEY FUNCTION OR MILD DISEASE - GFR >OR= 60CHRONIC KIDNEY DISEASE - GFR 15 - 59RENAL FAILURE - GFR <15 Est. GFR calculation based on the MDRDstudy equation, which assumes a steadystate for creatinine. Est. GFR should notbe used for medication dosing. ID Date Data Source [id number] 03/05/2020 07:52:18 AM EDT [facility] Name Value Range Interpretation Code Description Data Marie rce(s) Supporting Document(s) PT 10.0 s (9.2-11.9) [facility] INR 0.95 [facility] SUGGESTED THERAPEUTIC RANGES USING INR F ORSTABILIZED ANTICOAGULATED PATIENTS:STANDARD DOSE THERAPY INR 2.0-3.0 DVT, PE, PREVENT DVT OR EMBOLISMHIGH DOSE THERAPY INR 2.5-3.5 PREVENT EMBOLISM FROM MECHANICAL HEART VALVE ID Date Data Source [id number] 03/05/2020 07:44:34 AM EDT [facility] Name Value Range Interpretation Code Description Data Marie rce(s) Supporting Document(s) WBC 10.3 10*3/uL (4.1-11.0) [facility] RBC 4.53 10*6/uL (4.00-5.40) [facility] HGB 13.7 g/dL (12.0-16.0) [facility] HCT 41.2 % (36.0-47.0) [facility] MCV 91.0 fL (80.0-95.0) [facility] MCH 30.3 pg (27.0-32.0) [facility] MCHC 33.3 g/dL (32.0-36.0) [facility] RDW 13.1 % (10.5-14.5) [facility] PLT 294 10*3/uL (150-450) [facility] MPV 8.6 fL (7.1-10.7) [facility] NEUT % 87.3 % (35.0-75.0) H [facility] LYMPH % 10.2 % (16.0-52.0) L [facility] MONO % 2.4 % (0.0-8.0) [facility] EOS % 0.0 % (0.0-5.0) [facility] BASO % 0.1 % (0.0-4.0) [facility] NEUT # 9.0 10*3/uL (1.8-7.7) H [facility] LYMPH # 1.1 10*3/uL (1.2-4.8) L [facility] MONO # 0.2 10*3/uL (0.0-0.8) [facility] Eosinophils [#/volume] in Blood by Automated count 0.0 10*3/uL (0.0-0 .5) [facility] BASO # 0.0 10*3/uL (0.0-0.2) [facility] ID Date Data Source [id number] 03/04/2020 10:08:11 PM EDT [facility] Name Value Range Interpretation Code Description Data Marie rce(s) Supporting Document(s) APTT 25.5 s (22.0-34.3) [facility] ID Date Data Source [id number] 02/28/2020 11:04:41 AM EDT [facility] PC[facility]: Margarita Waller: 2Provider: Milka [...] wearing a seatbelt. She was seen at [place] [facility]. She had CT scans of [...] pain; PORTILLO = N; Verified Transmission to [facility]; Msg to Pharmacy: [facility] 02/12/20; Last Updated By: [employer]Fire; 02/22/2020 10:23:14 AM MRI (SOS) Referral Diagnostic Diagnostic Status: Need Information - FinancialAuthorization Requested for: [id number] Ordered;For: Lower back pain; Ordered By: Ronda Blake Performed: Order Com ments: [facility] 02/12/20 lumbar Due: [id number]; Last Updated By: Mari Rose; 02/22/2020 10:21:12 AMPatient will follow up with: : new jaiMRI Ordered Contrast : 01: without gadoLaterality: : _Not Applicable Work Note (SOS) Treatment Treatment Status: Complete Done: [id number] Ordered;For: Health Maintenance; Ordered By: Ronda Blake Performed: Due: [id number]; Last Updated By: Mari Rose; 02/22/2020 10:21:12 [...] document was dictated and electronically signed using GoGoVan software. A reasonable attempt at proof reading [...] 12:00:00 AM EDT Quit completed Quit MEDENT ([facility], [facility]) Smoking 03/18/2021 12:00:00 AM EDT Former Smoker completed Former Smoker eCW1 ([facility]) Smoking 03/18/2021 12:00:00 AM EDT Former Smoker completed Former Smoker eCW1 ([facility]) Smoking 03/18/2021 12:00:00 AM EDT Former Smoker completed Former Smoker eCW1 ([facility]) Smoking 03/18/2021 12:00:00 AM EDT Former Smoker completed Former Smoker eCW1 ([facility]) Smoking 02/26/2021 12:00:00 AM EDT Former Smoker completed Former Smoker eCW1 ([facility]) Smoking 02/26/2021 12:00:00 AM EDT Former Smoker completed Former Smoker eCW1 ([facility]) Smoking 02/10/2021 12:00:00 AM EDT Former Smoker completed Former Smoker eCW1 ([facility]) Smoking 02/10/2021 12:00:00 AM EDT Former Smoker completed Former Smoker eCW1 ([facility]) Smoking 02/10/2021 12:00:00 AM EDT Former Smoker completed Former Smoker eCW1 ([facility]) Smoking 02/10/2021 12:00:00 AM EDT Former Smoker completed Former Smoker eCW1 ([facility]) Smoking 12/31/2020 12:00:00 AM EDT Former Smoker completed Former Smoker eCW1 ([facility]) Smoking 12/11/2020 12:00:00 AM EDT Former Smoker completed Former Smoker eCW1 ([facility]) Smoking 12/11/2020 12:00:00 AM EDT Former Smoker completed Former Smoker eCW1 ([facility]) Smoking 12/11/2020 12:00:00 AM EDT Former Smoker completed Former Smoker eCW1 ([facility]) Smoking 12/11/2020 12:00:00 AM EDT Former Smoker completed Former Smoker eCW1 ([facility]) Smoking 12/04/2020 12:00:00 AM EDT Former Smoker completed Former Smoker eCW1 ([facility]) Smoking 12/04/2020 12:00:00 AM EDT Former Smoker completed Former Smoker eCW1 ([facility]) Smoking 11/26/2020 12:00:00 AM EDT Former Smoker completed Former Smoker eCW1 ([facility]) Smoking 11/12/2020 12:00:00 AM EDT Former Smoker completed Former Smoker eCW1 ([facility]) Smoking 11/12/2020 12:00:00 AM EDT Former Smoker completed Former Smoker eCW1 ([facility]) Smoking 10/28/2020 12:00:00 AM EDT Former Smoker completed Former Smoker eCW1 ([facility]) Smoking 06/23/2020 12:00:00 AM EST Former Smoker completed Former Smoker eCW1 ([facility]) Smoking 06/23/2020 12:00:00 AM EST Former Smoker completed Former Smoker eCW1 ([facility]) Smoking 06/23/2020 12:00:00 AM EST Former Smoker completed Former Smoker eCW1 ([facility]) Smoking 05/26/2020 12:00:00 AM EST Former Smoker completed Former Smoker eCW1 ([facility]) Smoking 05/26/2020 12:00:00 AM EST Former Smoker completed Former Smoker eCW1 ([facility]) Smoking 05/26/2020 12:00:00 AM EST Former Smoker completed Former Smoker eCW1 ([facility]) Smoking 05/05/2020 12:00:00 AM EST Former Smoker completed Former Smoker eCW1 ([facility]) Smoking 04/11/2020 12:00:00 AM EDT Former Smoker completed Former Smoker eCW1 ([facility]) Smoking 04/01/2020 12:00:00 AM EDT Former Smoker completed Former Smoker eCW1 ([facility]) Smoking 04/01/2020 12:00:00 AM EDT Former Smoker completed Former Smoker eCW1 ([facility]) Smoking 04/01/2020 12:00:00 AM EDT Former Smoker completed Former Smoker eCW1 ([facility]) Smoking 04/01/2020 12:00:00 AM EDT Former Smoker completed Former Smoker eCW1 ([facility]) Smoking 03/17/2020 12:00:00 AM EDT Patient has n ever smoked (pipe, cigarette, cigar) completed Patient has never smoked (pipe, cigarett e, cigar) MEDENT ([facility]) Smoking 03/04/2020 07:28:00 PM EDT Former Smoker completed Former Smoker [facility] Vital Signs ID Date Data Source UNK Name Value Range Interpretation Code Description Data Source(s) Systolic blood pressure 168 mm[Hg] 168 mm[Hg] M EDENT ([facility]) Diastolic blood pressure 83 mm[Hg] 83 mm[facility]Hg[facility] Heart rate 56 /min 56 /min [facility] Respiratory rate 16 /min 16 /min [facility] ( [facility]) Oxygen saturation in Arterial blood by Pulse oximetry 97 % 97 % [facility] ([facility]) Body temperature 97.8 [degF] 97.8 [degF] MEDENT ([facility], [facility]) Body weight 164.00 [lb_av] 164.00 [lb_av] MEDEN T ([facility], [facility]) Body height 58.5 [in_i] 58.5 [in_i] MEDENT ([facility], [facility]) 4'10.50" Body mass index (BMI) [Ratio] 33.7 kg/m2 33.7 k g/m2 MEDENT ([facility], [facility]) Body weight 170 [lb_av] 170 [lb_av] eCW1 ([facility]) Body height 59 [in_i] 59 [in_i] eCW1 ([facility]) Body mass index (BMI) [Ratio] 34.33 kg/m2 34.33 kg/m2 eCW1 ([facility]) Systolic blood pressure 118 mm[Hg] 118 mm[Hg] e CW1 ([facility]) Diastolic blood pressure 68 mm[Hg] 68 mm[Hg] eCW1 ([facility]) Body weight 165 [lb_av] 165 [lb_av] eCW1 ([facility]) Body height 59 [in_i] 59 [in_i] eCW1 ([facility]) Body mass index (BMI) [Ratio] 33.32 kg/m2 33.32 kg/m2 eCW1 ([facility]) Heart rate 74 /min 74 /min eCW1 ([facility]) Respiratory rate 18 /min 18 /min eCW1 ([facility]) Body temperature 97.3 [degF] 97.3 [degF] eCW1 ( [facility]) Systolic blood pressure 120 mm[Hg] 120 mm[Hg] e CW1 ([facility]) Diastolic blood pressure 70 mm[Hg] 70 mm[Hg] eCW1 ([facility]) Body weight 168.8 [lb_av] 168.8 [lb_av] eCW1 ([facility]) Body height 59 [in_i] 59 [in_i] eCW1 ([facility]) Body mass index (BMI) [Ratio] 34.09 kg/m2 34.09 kg/m2 eCW1 ([facility]) Systolic blood pressure 140 mm[Hg] 140 mm[Hg] e CW1 ([facility]) Diastolic blood pressure 78 mm[Hg] 78 mm[Hg] eCW1 ([facility]) Body weight 168 [lb_av] 168 [lb_av] eCW1 ([facility]) Body height 59 [in_i] 59 [in_i] eCW1 ([facility]) Body mass index (BMI) [Ratio] 33.93 kg/m2 33.93 kg/m2 eCW1 ([facility]) Heart rate 88 /min 88 /min eCW1 ([facility]) Respiratory rate 18 /min 18 /min eCW1 ([facility]) Body temperature 97.9 [degF] 97.9 [degF] eCW1 ( [facility]) Systolic blood pressure 150 mm[Hg] 150 mm[Hg] e CW1 ([facility]) Diastolic blood pressure 70 mm[Hg] 70 mm[Hg] eCW1 ([facility]) Body weight 165 [lb_av] 165 [lb_av] eCW1 ([facility]) Body height 59 [in_i] 59 [in_i] eCW1 ([facility]) Body mass index (BMI) [Ratio] 33.32 kg/m2 33.32 kg/m2 eCW1 ([facility]) Heart rate 90 /min 90 /min eCW1 ([facility]) Respiratory rate 18 /min 18 /min eCW1 ([facility]) Body temperature 98.3 [degF] 98.3 [degF] eCW1 ( [facility]) Systolic blood pressure 130 mm[Hg] 130 mm[Hg] e CW1 ([facility]) Diastolic blood pressure 60 mm[Hg] 60 mm[Hg] eCW1 ([facility]) Body weight 168.4 [lb_av] 168.4 [lb_av] eCW1 ([facility]) Body height 59 [in_i] 59 [in_i] eCW1 ([facility]) Body mass index (BMI) [Ratio] 34.01 kg/m2 34.01 kg/m2 eCW1 ([facility]) Heart rate 88 /min 88 /min eCW1 ([facility]) Respiratory rate 20 /min 20 /min eCW1 ([facility]) Body temperature 98.4 [degF] 98.4 [degF] eCW1 ( [facility]) Systolic blood pressure 140 mm[Hg] 140 mm[Hg] e CW1 ([facility]) Diastolic blood pressure 70 mm[Hg] 70 mm[Hg] eCW1 ([facility]) Body weight 169 [lb_av] 169 [lb_av] eCW1 ([facility]) Body height 59 [in_i] 59 [in_i] eCW1 ([facility]) Body mass index (BMI) [Ratio] 34.13 kg/m2 34.13 kg/m2 eCW1 ([facility]) Heart rate 70 /min 70 /min eCW1 ([facility]) Respiratory rate 18 /min 18 /min eCW1 ([facility]) Body temperature 98 [degF] 98 [degF] eCW1 ([facility]) Systolic blood pressure 132 mm[Hg] 132 mm[Hg] e CW1 ([facility]) Diastolic blood pressure 68 mm[Hg] 68 mm[Hg] eCW1 ([facility]) Diastolic blood pressure 70 mm[Hg] 70 mm[Hg] eCW1 ([facility]) Body weight 170.6 [lb_av] 170.6 [lb_av] eCW1 ([facility]) Body height 59 [in_i] 59 [in_i] eCW1 ([facility]) Body mass index (BMI) [Ratio] 34.45 kg/m2 34.45 kg/m2 eCW1 ([facility]) Heart rate 82 /min 82 /min eCW1 ([facility]) Respiratory rate 18 /min 18 /min eCW1 ([facility]) Body temperature 98 [degF] 98 [degF] eCW1 ([facility]) Systolic blood pressure 140 mm[Hg] 140 mm[Hg] e CW1 ([facility]) Body weight 173.2 [lb_av] 173.2 [lb_av] eCW1 ([facility]) Body height 59 [in_i] 59 [in_i] eCW1 ([facility]) Body mass index (BMI) [Ratio] 34.98 kg/m2 34.98 kg/m2 eCW1 ([facility]) Heart rate 76 /min 76 /min eCW1 ([facility]) Respiratory rate 18 /min 18 /min eCW1 ([facility]) Body temperature 97.8 [degF] 97.8 [degF] eCW1 ( [facility]) Systolic blood pressure 138 mm[Hg] 138 mm[Hg] e CW1 ([facility]) Diastolic blood pressure 78 mm[Hg] 78 mm[Hg] eCW1 ([facility]) Body weight 167.6 [lb_av] 167.6 [lb_av] eCW1 ([facility]) Body height 59 [in_i] 59 [in_i] eCW1 ([facility]) Body mass index (BMI) [Ratio] 33.85 kg/m2 33.85 kg/m2 eCW1 ([facility]) Heart rate 82 /min 82 /min eCW1 ([facility]) Respiratory rate 18 /min 18 /min eCW1 ([facility]) Body temperature 98 [degF] 98 [degF] eCW1 ([facility]) Systolic blood pressure 180 mm[Hg] 180 mm[Hg] e CW1 ([facility]) Diastolic blood pressure 86 mm[Hg] 86 mm[Hg] eCW1 ([facility]) Body weight 170 [lb_av] 170 [lb_av] eCW1 ([facility]) Body height 59 [in_i] 59 [in_i] eCW1 ([facility]) Body mass index (BMI) [Ratio] 34.33 kg/m2 34.33 kg/m2 eCW1 ([facility]) Heart rate 68 /min 68 /min eCW1 ([facility]) Respiratory rate 18 /min 18 /min eCW1 ([facility]) Body temperature 97.2 [degF] 97.2 [degF] eCW1 ( [facility]) Systolic blood pressure 170 mm[Hg] 170 mm[Hg] e CW1 ([facility]) Diastolic blood pressure 80 mm[Hg] 80 mm[Hg] eCW1 ([facility]) Body height 58.50 [in_i] 58.50 [in_i] MEDENT ([facility]) 4'10.50" Body weight 163.00 [lb_av] 163.00 [lb_av] MEDEN T ([facility]) Body mass index (BMI) [Ratio] 33.5 kg/m2 33.5 k g/m2 MEDENT ([facility]) Systolic blood pressure 107 mm[Hg] 107 mm[Hg] M EDENT ([facility]) Diastolic blood pressure 71 mm[Hg] 71 mm[Hg] MEDENT ([facility]) Heart rate 60 /min 60 /min MEDENT ([facility]) Body weight 168 [lb_av] 168 [lb_av] eCW1 ([facility]) Body height 59 [in_i] 59 [in_i] eCW1 ([facility]) Body mass index (BMI) [Ratio] 33.93 kg/m2 33.93 kg/m2 eCW1 ([facility]) Heart rate 56 /min 56 /min eCW1 ([facility]) Respiratory rate 18 /min 18 /min eCW1 ([facility]) Body temperature 97.2 [degF] 97.2 [degF] eCW1 ( [facility]) Systolic blood pressure 162 mm[Hg] 162 mm[Hg] e CW1 ([facility]) Diastolic blood pressure 85 mm[Hg] 85 mm[Hg] eCW1 ([facility]) Body weight 170.4 [lb_av] 170.4 [lb_av] eCW1 ([facility]) Body height 59 [in_i] 59 [in_i] eCW1 ([facility]) Body mass index (BMI) [Ratio] 34.41 kg/m2 34.41 kg/m2 eCW1 ([facility]) Heart rate 92 /min 92 /min eCW1 ([facility]) Respiratory rate 18 /min 18 /min eCW1 ([facility]) Body temperature 97.1 [degF] 97.1 [degF] eCW1 ( [facility]) Systolic blood pressure 124 mm[Hg] 124 mm[Hg] e CW1 ([facility]) Diastolic blood pressure 60 mm[Hg] 60 mm[Hg] eCW1 ([facility]) Mars body weight 100 [lb_av] 100 [lb_av] MEDEN T ([facility], ) Respiratory rate 12 /min 12 /min MEDENT ( [facility], ) Body height 58.5 [in_i] 58.5 [in_i] MEDENT ([facility], ) 4'10.50" Body weight 163.00 [lb_av] 163.00 [lb_av] MEDEN T ([facility], ) Body mass index (BMI) [Ratio] 33.5 kg/m2 33.5 k g/m2 MEDENT ([facility], ) Body height 58.5 [in_i] 58.5 [in_i] MEDENT ([facility], ) 4'10.50" Body weight 161.00 [lb_av] 161.00 [lb_av] MEDEN T ([facility], ) Respiratory rate 12 /min 12 /min MEDENT ( [facility], ) Body mass index (BMI) [Ratio] 33.1 kg/m2 33.1 k g/m2 MEDENT ([facility], ) Mars body weight 100 [lb_av] 100 [lb_av] MEDEN T ([facility], ) Body weight 168 [lb_av] 168 [lb_av] eCW1 ([facility]) Body height 59 [in_i] 59 [in_i] eCW1 ([facility]) Body mass index (BMI) [Ratio] 33.93 kg/m2 33.93 kg/m2 eCW1 ([facility]) Heart rate 80 /min 80 /min eCW1 ([facility]) Respiratory rate 18 /min 18 /min eCW1 ([facility]) Body temperature 97.4 [degF] 97.4 [degF] eCW1 ( [facility]) Systolic blood pressure 138 mm[Hg] 138 mm[Hg] e CW1 ([facility]) Diastolic blood pressure 70 mm[Hg] 70 mm[Hg] eCW1 ([facility]) Respiratory rate 12 /min 12 /min MEDENT ( [facility], ) Body height 58.5 [in_i] 58.5 [in_i] MEDENT ([facility], ) 4'10.50" Body weight 161.00 [lb_av] 161.00 [lb_av] MEDEN T ([facility], ) Body mass index (BMI) [Ratio] 33.1 kg/m2 33.1 k g/m2 MEDENT ([facility], ) Mars body weight 100 [lb_av] 100 [lb_av] MEDEN T ([facility], ) Body weight 172 [lb_av] 172 [lb_av] eCW1 ([facility]) Body height 59 [in_i] 59 [in_i] eCW1 ([facility]) Body mass index (BMI) [Ratio] 34.74 kg/m2 34.74 kg/m2 eCW1 ([facility]) Heart rate 73 /min 73 /min eCW1 ([facility]) Respiratory rate 18 /min 18 /min eCW1 ([facility]) Body temperature 96.7 [degF] 96.7 [degF] eCW1 ( [facility]) Systolic blood pressure 102 mm[Hg] 102 mm[Hg] e CW1 ([facility]) Diastolic blood pressure 60 mm[Hg] 60 mm[Hg] eCW1 ([facility]) Body height 58.50 [in_i] 58.50 [in_i] MEDENT ([facility]) 4'10.50" Body weight 173.00 [lb_av] 173.00 [lb_av] MEDEN T ([facility]) Body mass index (BMI) [Ratio] 35.5 kg/m2 35.5 k g/m2 MEDENT ([facility]) Systolic blood pressure 111 mm[Hg] 111 mm[Hg] M EDENT ([facility]) Diastolic blood pressure 66 mm[Hg] 66 mm[Hg] MEDENT ([facility]) Heart rate 60 /min 60 /min [facility] ([facility]) Systolic blood pressure 150 mm[Hg] Normal (applies t o non-numeric results) 150 mm[Hg] [facility] Diastolic blood pressure 78 mm[Hg] Normal (applies to non-numeric results) 78 mm[Hg] [facility] Heart rate 65 min Normal (applies to non-numeric resul ts) 65 min [facility] Respiratory rate 18 min Normal (applies to non-numeric results) 18 min [facility] Deprecated Oxygen saturation in Capillary blood by Oximetry 100 % Normal (applies to non-numeric results) 100 % [facility] Body temperature 36.8 erasmo Normal (applies to non-numeric results) 36.8 erasmo [facility] Body height 146.304 cm Normal (applies to non-numeric resu lts) 146.304 cm [facility] Body mass index (BMI) [Ratio] 35.11 kg/m2 No rmal (applies to non-numeric results) 35.11 kg/m2 [facility] Body weight Measured 168 [lb_av] Normal (applies to n on-numeric results) 168 [lb_av] [facility] Patient Treatment Plan of Care Planned Activity Planned Date Details Description Data Source (s) Prednisone 10 MG Oral Tablet 12/11/2020 12:00:00 AM EDT eCW1 ([facility]) Prednisone 10 MG Oral Tablet 12/11/2020 12:00:00 AM EDT eCW1 ([facility]) Prednisone 10 MG Oral Tablet 12/11/2020 12:00:00 AM EDT eCW1 ([facility]) Prednisone 10 MG Oral Tablet 12/11/2020 12:00:00 AM EDT eCW1 ([facility]) Colestipol Hydrochloride 1000 MG Oral Tablet 11/26/2020 12:00:00 AM EDT eCW1 ([facility]) Metronidazole 500 MG Oral Tablet [Flagyl] 11/26/2020 12:00:00 AM ED T eCW1 ([facility]) Budesonide 3 MG Delayed Release Oral Capsule 11/12/2020 12:00:00 AM EDT eCW1 ([facility]) Budesonide 3 MG Delayed Release Oral Capsule 11/12/2020 12:00:00 AM EDT eCW1 ([facility]) Amlodipine 5 MG Oral Tablet 06/23/2020 12:00:00 AM EST eCW1 ([facility]) Amlodipine 5 MG Oral Tablet 06/23/2020 12:00:00 AM EST eCW1 ([facility]) Fluconazole 150 MG Oral Tablet [Diflucan] 06/23/2020 12:00:00 AM ES T eCW1 ([facility]) Doxycycline Monohydrate 100 MG Oral Tablet 06/23/2020 12:00:[address] eCW1 ([facility]) Amlodipine 5 MG Oral Tablet 06/23/2020 12:00:00 AM EST eCW1 ([facility]) Fluconazole 150 MG Oral Tablet [Diflucan] 06/23/2020 12:00:00 AM ES T eCW1 ([facility]) Doxycycline Monohydrate 100 MG Oral Tablet 06/23/2020 12:00:[address] eCW1 ([facility]) Amlodipine 5 MG Oral Tablet 06/23/2020 12:00:00 AM EST eCW1 ([facility]) Fluconazole 150 MG Oral Tablet [Diflucan] 06/23/2020 12:00:00 AM ES T eCW1 ([facility]) Doxycycline Monohydrate 100 MG Oral Tablet 06/23/2020 12:00:[address] eCW1 ([facility]) Amlodipine 5 MG Oral Tablet 06/23/2020 12:00:00 AM EST eCW1 ([facility])
[2021-04-15 15:39] LABS: RSV AMPLIFICATION NEGATIVE (NEGATIVE)
--- NOTE | 2021-04-15 16:11 | HPEPDOC ---
[facility] Medical History & Physical Date of Admission Apr 15, 2021 Date of Service: Apr 15, 2021 Primary Care Physician: GRAHAM COWART MD Attending Physician: GENNY ESPINAL DO History and Physical CHIEF COMPLAINT: Tooth pain HISTORY OF PRESENT ILLNESS: Patient is a 61-year-old female who initially presented in the emergency department for chief complaint of tooth pain. Jeniffer romero is complaining of pain in the upper left part of her mouth with molars. Patient says the pain is worse when she eats but it is a constant throb at this time. Patient also states while in the emergency department, she started having chest heaviness and shortness of breath. Patient states that the heaviness is better now but the shortness of breath still present but only when she moves around. Patient is not currently short of breath at this time. Patient then began complaining of right sided total body numbness to the emergency department provider. Patient had no other new focal neurological deficits according to the emergency department provider and the patient did not complain of any weakness. Patient describes as a decrease in sensation. Emergency department provider discussed the possibility of patient having a stroke the patient did state that she has a history of TIAs. The conversation was had about thrombolytics however, patient did not meet criteria for thrombolytics so thrombolytics were not given to the patient. Patient continued to have numbness but she says this is mildly improved by the time of my evaluation. Patient says that her biggest complaint is mostly of the tooth pain. PAST MEDICAL HISTORY: 1. Hypertension. 2. COPD. 3. Microscopic colitis. 4. Hypercholesterolemia 5. Anxiety depression 6. GERD PAST SURGICAL HISTORY: 1. Ovarian cystectomy with appendectomy. 2. . 3. Thoracic discectomy. 4. Cervical laminectomy 5. Bilateral ptosis repair 6. Uterine biopsy SOCIAL HISTORY: Patient is a former smoker who quit in 2019. Patient does not drink alcohol nor does she use illicit drugs FAMILY HISTORY: Patient's father has a history of asthma hypertension diabetes and history of prostate cancer. Patient's mother had throat cancer and cancer of the esophagus as well as coronary artery disease hypertension and a history of an [place]. ALLERGIES: Please see below. REVIEW OF SYSTEMS: General: Patient denies fevers HEENT: Patient reports headaches in the front of her head Cardiovascular: Patient reports chest pressure as described above Respiratory: Patient reports shortness of breath as described above. Patient denies cough GI: Patient denies abdominal pain, nausea, vomiting, diarrhea : Patient denies increased frequency or pain with urination Extremities: Patient denies swelling or pain in extremities Neurological: Patient reports numbness on the right side of her face, arm, leg Skin: Patient denies any new rashes or lesions. Hematologic: Patient denies any easy bruising. Lymphatic: Patient denies any lumps lumps or bumps in neck, axilla, or groin HOME MEDICATIONS: Please see below. PHYSICAL EXAMINATION: VITAL SIGNS: Temperature 98.1, pulse 76, respiratory rate 18, blood pressure 164/71, pulse oximetry 95% on room air. General: Alert and oriented female patient who was sitting up in bed when I walked in. Patient not appear to be in any acute distress. HEENT: Normocephalic, atraumatic, moist mucous membranes. Neck: No lymphadenopathy or thyromegaly Cardiac: Regular rate and rhythm, no murmurs, normal S1, normal S2 Pulm: Clear to auscultation bilaterally. No wheezes, rhonchi, rales Abd: Nondistended, nontender to palpation, normal bowel sounds Ext: No edema bilateral lower extremities Neuro: Patient had equal strength in upper and lower extremities bilaterally. Patient reported sensation to light touch in upper and lower extremities bilaterally. Cranial nerves III through XII intact bilaterally Skin: Skin of the head, neck, upper and lower extremities was examined did not show any evidence of rash or wounds. LABORATORY DATA: See below. IMAGING: Chest x-ray performed on 04/15/2021 was reported to show no acute pulmonary disease. Head CT performed without contrast on 04/15/2021 is reported to show negative noncontrast CT brain. MRI of the brain performed without contrast on 04/15/2021 was reported to show nonspecific T2/FLAIR white matter hyperintensities asymmetric to the right p otentially small vessel ischemia, demyelination or sequela of migraine headaches. MRA of the brain performed without contrast on 04/15/2021 was reported to show no stenosis or occlusion. MICROBIOLOGY: Please see below. ASSESSMENT: 61-year-old female who presented the emergency department initially with tooth pain then chest pressure and shortness of breath who then complained of numbness on the right side of her body which was found to be most likely secondary to a TIA.. . PLAN: 1. TIA. Since MRI did not show any acute CVA. Patient is already on aspirin and statin therapy. Repeat lipid panel will be performed tomorrow. Patient had a recent A1c that was 5.9. Patient continue to follow-up with her primary care provider for this. We will order carotid ultrasound and echocardiogram as the patient does not appear to have an echocardiogram in our system recently. If the patient's symptoms continue to progress, further imaging can be performed. 2. Chest pressure. Patient had negative troponins x2 in the emergency department. We will continue to monitor this. 3. Shortness of breath. Patient does carry a diagnosis of COPD but she does not appear to be in exacerbation.. Patient does not have pneumonia or laboratory findings to suggest an acute respiratory illness. Patient was negative for COVID-19. We will continue to monitor the patient. Patient's respiratory rate and pulse ox were within normal range. 4. Tooth pain. Patient does appear to have a fractured tooth down to the root of one of her maxillary premolars. Patient will need a dental visit [facility] to have this tooth most likely removed. 5. Hypertension. We will continue the patient's home antihypertensive medications. 6. Hypercholesterolemia. Repeat lipid panel will be performed tomorrow morning. 7. DVT prophylaxis: Heparin 8. CODE STATUS: Full code Disposition: Patient will be admitted to medical surgical floor with telemetry under observation. Patient should be discharged prior to 2 midnight stay. Vital Signs Vital Signs Date Time Temp Pulse Resp B/P (MAP) Pulse Ox O2 Delivery O2 Flow Rate FiO2 04/15/21 14:07 18 04/15/21 11:47 65 96 Room Air 04/15/21 10:30 149/64 (92) 04/15/21 08:43 98.1 Laboratory Data Labs 24H Laboratory Tests 2 04/15/21 09:04: Immature Granulocyte % (Auto) 0.2, Neutrophils (%) (Auto) 58.3, Lymphocytes (%) (Auto) 31.9, Monocytes (%) (Auto) 8.3H, Eosinophils (%) (Auto) 1.1, Basophils (%) (Auto) 0.2, Neutrophils # (Auto) 4.9, Lymphocytes # (Auto) 2.7, Monocytes # (Auto) 0.7, Eosinophils # (Auto) 0.1, Basophils # (Auto) 0.0, Nucleated Red Blood Cells % (auto) 0.0, Anion Gap 6L, Glomerular Filtration Rate > 60.0, Calcium Level 8.3L, Total Bilirubin 0.3, Direct Bilirubin < 0.1, Aspartate Amino Transf (AST/SGOT) 10, Alanine Aminotransferase (ALT/SGPT) 33, Alkaline Phosphatase 94, DK-Lnv-E-Type Natriuretic Peptide 487H, Total Protein 6.8, Albumin 3.7, Albumin/Globulin Ratio 1.2, Lipase 309, Thyroid Stimulating Hormone (TSH) 2.790 04/15/21 09:06: POC Glucose (Misc Panel) 119H, POC Sodium (Misc Panel) 139, POC Potassium (Misc Panel) 3.6, POC Chloride (Misc Panel) 100, POC Total CO2 (Misc Panel) 25.0, POC Blood Urea Nitrogen (Misc Panel 21, POC Ionized Calcium (Misc Panel) 4.5, POC Creatinine (Misc Panel) 0.8, POC Hematocrit (Misc Panel) 40.0 04/15/21 09:08: POC Troponin I (Misc) 0.00 04/15/21 11:25: POC Troponin I (Misc) 0.00 04/15/21 14:51: Coronavirus (COVID-19)(PCR) NEGATIVE, Influenza Type A (RT-PCR) NEGATIVE, Influenza Type B (RT-PCR) NEGATIVE, Respiratory Syncytial Virus (PCR) NEGATIVE CBC/BMP Laboratory Tests 04/15/21 09:04 Home Medications Scheduled Aspirin (Aspirin EC) 81 Mg Tab, 81 MG PO DAILY Citalopram Hydrobromide (Citalopram HBr) 40 Mg Tab, 40 MG PO DAILY Montelukast Sodium (Singulair) 10 Mg Tab, 10 MG PO QHS Olmesartan Medoxomil (Benicar) 40 Mg Tab, 40 MG PO DAILY Simvastatin (Simvastatin) 20 Mg Tab, 20 MG PO QHS Scheduled PRN Furosemide (Lasix) 20 Mg Tab, 20 MG PO DAILY PRN for SWELLING Trazodone HCl (Trazodone HCl) 50 Mg Tablet, 50 MG PO QHS PRN for SLEEP Allergies Coded Allergies: clindamycin (Verified Allergy, Mild, rash, 04/08/20) erythromycin base (Verified Allergy, Mild, rash, 04/08/20) pregabalin (Verified Allergy, Unknown, 02/20/21) celecoxib (Verified Adverse Reaction, Intermediate, urinary retention, 02/12/20) cyclobenzaprine (Verified Adverse Reaction, Intermediate, urinary retention, 04/08/20) meloxicam (Verified Adverse Reaction, Intermediate, urinary retention, 02/12/20) sertraline (Verified Adverse Reaction, Intermediate, urinary retention, 02/12/20) A-FIB/CHADSVASC A-FIB History Current/History of A-Fib/PAF?: No GENNY ESPINAL DO Apr 15, 2021 16:11
[2021-04-15] MEDS ORDERED: HOME MED LIST COMPLETE! XX SCH (16:20)
[2021-04-15 17:06] VITALS: BP 127/68
[2021-04-15] MEDS: ACETAMINOPHEN TAB 650MG DOSE (2X325MG) PO PRN ×2 (17:23→21:24)
[2021-04-15] MEDS ORDERED: traZODone 50 MG TAB PO PRN (18:10)
[2021-04-15 21:00] VITALS: BP 132/68
[2021-04-15] MEDS ORDERED: SIMVASTATIN 20 MG TAB PO SCH (21:00)
[2021-04-15] MEDS: HEPARIN SOD (PORCINE) 5000UNITS/ML 1ML VIAL/SYRINGE SC SCH (21:11)
[2021-04-15] MEDS: BENZOCAINE 10% 9GM TUBE (ANBESOL) MT PRN (21:25)
[2021-04-16] MEDS: ACETAMINOPHEN TAB 650MG DOSE (2X325MG) PO PRN ×3 (01:45→10:07)
[2021-04-16] MEDS: BENZOCAINE 10% 9GM TUBE (ANBESOL) MT PRN (05:13)
[2021-04-16] MEDS: HEPARIN SOD (PORCINE) 5000UNITS/ML 1ML VIAL/SYRINGE SC SCH (05:13)
[2021-04-16 06:00] VITALS: BP 150/76
[2021-04-16 06:36] LABS: HEMATOCRIT 37.7 % (36.0-47.0); HEMOGLOBIN 12.6 g/dl (12.0-15.5); MEAN CORPUSCULAR HEMOGLOBIN 30.3 pg (27.0-33.0); MEAN CORPUSCULAR HGB CONC 33.4 g/dl (32.0-36.5); MEAN CORPUSCULAR VOLUME 90.6 fl (80.0-96.0); PLATELET COUNT, AUTOMATED 269 10^3/uL (150-450); RED BLOOD COUNT 4.16 10^6/uL (4.00-5.40); WHITE BLOOD COUNT 8.9 10^3/uL (4.0-10.0)
[2021-04-16 06:58] LABS: BLOOD UREA NITROGEN 16 MG/DL (7-18); CALCIUM LEVEL 8.3 MG/DL (8.5-10.1); CARBON DIOXIDE LEVEL 29 MEQ/L (21-32); CHLORIDE LEVEL 105 MEQ/L (98-107); CHOLESTEROL LEVEL 136 MG/DL (<200); CHOLESTEROL RISK RATIO 2.344 (<5); CREATININE FOR GFR 0.78 MG/DL (0.55-1.30); GLOMERULAR FILTRATION RATE > 60.0 (>51); GLUCOSE, FASTING 101 MG/DL (70-100); HDL CHOLESTEROL 58 MG/DL (>40); LDL CHOLESTEROL 53 MG/DL (<100); MAGNESIUM LEVEL 1.9 MG/DL (1.8-2.4); NON-HDL-C 78 MG/DL; POTASSIUM SERUM 3.9 MEQ/L (3.5-5.1); SODIUM LEVEL 138 MEQ/L (136-145); TRIGLYCERIDES LEVEL 124 MG/DL (<150)
[2021-04-16 08:22] VITALS: BP 151/73
[2021-04-16] MEDS ORDERED: ASPIRIN 81MG ENTERIC TABLET PO SCH (09:00)
[2021-04-16] MEDS ORDERED: FUROSEMIDE 20 MG TAB PO PRN (09:00)
[2021-04-16] MEDS ORDERED: OLMESARTAN MEDOXOMIL 20 MG TAB (BENICAR) PO SCH (09:00)
[2021-04-16] MEDS ORDERED: CitaloPRAM (CeleXA) 20 MG TAB PO SCH (09:00)
[2021-04-16] MEDS ORDERED: FLUBLOK(EGG FREE)(QUAD)INFLUENZA VACC 0.5ML SYRINGE 18YRS & OLDER IM ONE (09:00)
--- NOTE | 2021-04-16 19:27 | DS.PDOC ---
Discharge Summary General Date of Admission Apr 15, 2021 at 08:43 Date of Discharge 04/16/2021 Primary Care Physician: GRAHAM COWART MD Attending Physician: GENNY ESPINAL DO Discharge Summary PROCEDURES PERFORMED DURING STAY: None. ADMITTING DIAGNOSES: 1. TIA. 2. Chest pressure 3. Shortness of breath 4. Tooth pain 5. Hypertension 6. Hypercholesterolemia DISCHARGE DIAGNOSES: 1. TIA. 2. Chest pressure, resolved 3. Shortness of breath, resolved 4. Tooth pain 5. Hypertension 6. Hypercholesterolemia COMPLICATIONS/CHIEF COMPLAINT: TIA. HISTORY OF PRESENT ILLNESS: Patient is a 61-year-old female who initially presented in the emergency department for chief complaint of tooth pain. Patient is complaining of pain in the upper left part of her mouth with molars. Patient says the pain is worse when she eats but it is a constant throb at this time. Patient also states while in the emergency department, she started having chest heaviness and shortness of breath. Patient states that the heaviness is better now but the shortness of breath still present but only when she moves around. Patient is not currently short of breath at this time. Patient then began complaining of right sided total body numbness to the emergency department provider. Patient had no other new focal neurological deficits according to the emergency department provider and the patient did not complain of any weakness. Patient describes as a decrease in sensation. Emergency department provider discussed the possibility of patient having a stroke the patient did state that she has a history of TIAs. The conversation was had about thrombolytics however, patient did not meet criteria for thrombolytics so thrombolytics were not given to the patient. Patient continued to have numbness but she says this is mildly improved by the time of my evaluation. Patient says that her biggest complaint is mostly of the tooth pain.. HOSPITAL COURSE: Patient was admitted for TIA symptoms. Neurochecks did not show any changes. Patient did appear to have possible facial droop but did not have any weakness or motor dysfunction of her facial muscles when tested. Patient's tooth pain is due to a fracture of one of her premolars down to the root and will need to be managed by a dentist. Patient was feeling better and did not have any events on telemetry overnight. Patient's repeat lipid panel shows that her LDL cholesterol is well controlled on her current medications so her medications were not changed. Patient had echocardiogram performed but the read is still pending. Patient was deemed ready for discharge and was discharged home on 04/16/2021 DISCHARGE MEDICATIONS: Please see below. ALLERGIES: Please see below. PHYSICAL EXAMINATION ON DISCHARGE: VITAL SIGNS: Please see below. General: Alert and oriented female patient who was sitting up in bed when I walked in. Patient did not appear to be in any acute distress HEENT: Normocephalic, atraumatic, moist mucous membranes. Neck: No lymphadenopathy or thyromegaly Cardiac: Regular rate and rhythm, no murmurs, normal S1, normal S2 Pulm: Clear to auscultation bilaterally. No wheezes, rhonchi, rales Abd: Nondistended, nontender to palpation, normal bowel sounds Ext: No edema bilateral lower extremities Neuro: Patient had equal strength in upper and lower extremities bilaterally. Patient reported sensation to light touch in upper and lower extremities bilaterally. Cranial nerves III through XII intact bilaterally LABORATORY DATA: Please see below. IMAGING: Chest x-ray performed on 04/15/2021 was reported to show no acute pulmonary disease. Head CT performed without contrast on 04/15/2021 is reported to show negative noncontrast CT brain. MRI of the brain performed without contrast on 04/15/2021 was reported to show nonspecific T2/FLAIR white matter hyperintensities asymmetric to the right pote ntially small vessel ischemia, demyelination or sequela of migraine headaches. MRA of the brain performed without contrast on 04/15/2021 was reported to show no stenosis or occlusion. PROGNOSIS: Good ACTIVITY: As tolerated. DIET: Cardiacdiet DISCHARGE PLAN: Discharge home DISPOSITION: 01 Home, Self-Care. DISCHARGE INSTRUCTIONS: 1. Follow-up with primary care provider in 3 to 5 days discharge. 2. Return to the emergency department symptoms worsen ITEMS TO FOLLOWUP ON ON OUTPATIENT: 1. Echocardiogram report. DISCHARGE CONDITION: Stable. TIME SPENT ON DISCHARGE: 25 minutes. Vital Signs/I&Os Vital Signs Date Time Temp Pulse Resp B/P (MAP) Pulse Ox O2 Delivery O2 Flow Rate FiO2 04/16/21 08:22 151/73 04/16/21 06:00 98.1 74 18 94 Room Air I&O- Last 24 Hours up to 6 AM 04/16/21 06:00 Intake Total 300 ml Balance 300 ml Laboratory Data Labs 24H Laboratory Tests 2 04/16/21 06:07: Nucleated Red Blood Cells % (auto) 0.0, Anion Gap 4L, Glomerular Filtration Rate > 60.0, Calcium Level 8.3L, Magnesium Level 1.9, Triglycerides Level 124, Total Cholesterol 136, LDL Cholesterol 53, Non-HDL Cholesterol (LDL + VLDL) 78, Total HDL Cholesterol 58, Cholesterol/HDL Ratio 2.344 CBC/BMP Laboratory Tests 04/16/21 06:07 Discharge Medications Scheduled Aspirin (Aspirin EC) 81 Mg Tab, 81 MG PO DAILY, (Reported) Citalopram Hydrobromide (Citalopram HBr) 40 Mg Tab, 40 MG PO DAILY, (Reported) Montelukast Sodium (Singulair) 10 Mg Tab, 10 MG PO QHS, (Reported) Olmesartan Medoxomil (Benicar) 40 Mg Tab, 40 MG PO DAILY, (Reported) Simvastatin (Simvastatin) 20 Mg Tab, 20 MG PO QHS, (Reported) Scheduled PRN Furosemide (Lasix) 20 Mg Tab, 20 MG PO DAILY PRN for SWELLING, (Reported) Trazodone HCl (Trazodone HCl) 50 Mg Tablet, 50 MG PO QHS PRN for SLEEP, (Reported) Allergies Coded Allergies: clindamycin (Verified Allergy, Mild, rash, 04/08/20) erythromycin base (Verified Allergy, Mild, rash, 04/08/20) pregabalin (Verified Allergy, Unknown, 02/20/21) celecoxib (Verified Adverse Reaction, Intermediate, urinary retention, 02/12/20) cyclobenzaprine (Verified Adverse Reaction, Intermediate, urinary retention, 04/08/20) meloxicam (Verified Adverse Reaction, Intermediate, urinary retention, 02/12/20) sertraline (Verified Adverse Reaction, Intermediate, urinary retention, 02/12/20) GENNY ESPINAL DO Apr 16, 2021 19:26
--- NOTE | 2021-04-16 20:03 | ECGEPIP ---
[facility] - ED Test Date: 2021-04-15 Pat Name: DELMA DAWN Department: Room: - Gender: Female Senior [employer] Net Developer: GURPREET : 1960 Requested By: Roseanne Benavides Order Number: [id number] Reading MD: Roseanne Benavides Measurements Intervals [place] Rate: 70 P: 40 TX: 166 QRS: -52 QRSD: 88 T: 44 QT: 424 QTc: 457 Interpretive Statements Normal sinus rhythm NSTTW abnormalities Left axis deviation Anterior infarct , age undetermined increased rate 03/15/18 Electronically Signed on 04-16-2021 20:03:11 EDT by Roseanne Benavides
--- NOTE | 2021-04-16 20:09 | ECGEPIP ---
[facility] - ED Test Date: 2021-04-15 Pat Name: DELMA DAWN Department: Room: [place] [address] Gender: Female Screen Writer: ROOPA : 1960 Requested By: Roseanne Benavides Order Number: [id number] Reading MD: Roseanne Benavides Measurements Intervals [place] Rate: 68 P: 45 IN: 162 QRS: -26 QRSD: 90 T: 27 QT: 426 QTc: 452 Interpretive Statements Normal sinus rhythm Cannot rule out Anterior infarct , age undetermined NSTTW abnormalities similar 04/15/21 Electronically Signed on 04-16-2021 20:09:47 EDT by Roseanne Benavides
[2021-04-16] MEDS ORDERED: MONTELUKAST 10 MG TAB PO SCH (21:00)
--- NOTE | 2021-04-17 14:41 | ECHO ---
ECHOCARDIOGRAM DATE OF PROCEDURE: 04/16/2021 Age: 61 Gender: Female Height: 58 inches Weight: 174 pounds Body surface area: 1.71 m2 Inpatient, [facility], room 4222 REFERRING PHYSICIAN: José Miguel Nick D.O. INDICATION: Transient ischemic attack (TIA), cardiac source of embolic material? MEASUREMENTS: 2D Measurements: RV - 3.7 cm LV - 4.5 cm Septum 0.9 cm Posterior wall 0.9 cm Aortic root 2.6 cm LA - 3.0 cm LVEF 75% Doppler Measurements: AV - 1.41 m/s LVOT - 0.98 m/s LVOT diameter 1.8 cm MV-E 119, A 91, E/A ratio 1.3 Early mitral deceleration time 243 msec PV - 0.75 m/s Pulmonary artery acceleration time 100 msec RVSP 37 mmHg IVC - 1.7 cm COMMENTS: Sinus bradycardia without intraventricular conduction disturbance. Some technically challenging study, either because of the patient's body habitus or eligibility technician skill. M-mode and 2-dimensional echocardiography was performed with pulse, continuous wave, color flow, and tissue Doppler study. Normal left ventricular size, wall thickness, and hyperkinetic wall motion. Normal left atrial size and Doppler assessment of LV diastolic function and estimated mean left atrial pressure. Right heart chambers upper limits of normal in size with normal wall motion but Doppler sign of mild pulmonary hypertension. Normal IVC size with slightly reduced respiratory collapse, suggestive of a central venous pressure upper limits of normal. Normal aortic dimensions. Normal-appearing and functioning valvular structures. No intracardiac mass. Marginal posterior pericardial effusion (physiologic). Saline contrasts study was performed using 10 mL boluses administered in a large forearm vein with imaging from the apical, subcostal projection. Adequate opacification of the right heart chambers was observed, and no contrast was noted in the left heart even with Valsalva maneuver.
== END 2021-04-16 13:49 | disposition home or self-care (01) ==
LOC: M ED 08:42 → M ED INP 08:43 → ENRESERV 15:44 → M MSPAV 16:27
PROVIDERS: ADMIT Family Medicine; ATTEND Family Medicine
DX: G45.9 Transient cerebral ischemic attack, unspecified (principal); R07.89 Other chest pain; R06.02 Shortness of breath; K08.89 Other specified disorders of teeth and supporting structures; I10 Essential (primary) hypertension; E78.00 Pure hypercholesterolemia, unspecified; R20.0 Anesthesia of skin; J44.9 Chronic obstructive pulmonary disease, unspecified; K52.839 Microscopic colitis, unspecified; F41.9 Anxiety disorder, unspecified; F32.9 Major depressive disorder, single episode, unspecified; K21.9 Gastro-esophageal reflux disease without esophagitis; Z79.899 Other long term (current) drug therapy; Z79.82 Long term (current) use of aspirin; Z88.1 Allergy status to other antibiotic agents; Z88.8 Allergy status to other drugs, medicaments and biological substances; Z87.891 Personal history of nicotine dependence; Z23 Encounter for immunization
CPT/HCPCS: 36415; 70450; 70544; 70551; 71045; 80047; 80048; 80061; 80076; 83690; 83735; 83880; 84443; 84484; 85025; 85027; 87631; 90471; 90682; 93005; 93041; 93306; 94760; 96372; 99285; J1644

== ENCOUNTER 2021-06-17 16:44 | Emergency (ER) | payer BC ==
[~2021-06-17] VITALS: Ht 147.3 cm; Wt 74.1 kg
[~2021-06-17 16:44] MED LIST changes: +PRED20TA
[2021-06-17 18:29] LABS: BASO % 0.3 % (0.0-1.0); EOS # 0.4 10^3/uL (0.0-0.5); EOS % 3.8 % (0.0-3.0); HEMATOCRIT 41.5 % (36.0-47.0); HEMOGLOBIN 13.7 g/dl (12.0-15.5); LYMPH # 2.6 10^3/uL (1.5-5.0); LYMPH % 27.1 % (24.0-44.0); MEAN CORPUSCULAR HEMOGLOBIN 29.7 pg (27.0-33.0); MONO # 0.8 10^3/uL (0.0-0.8); MONO % 8.5 % (2.0-8.0); NEUTROPHILS # 5.7 10^3/uL (1.5-8.5); NEUTROPHILS % 60.1 % (36.0-66.0); PLATELET COUNT, AUTOMATED 263 10^3/uL (150-450); RED BLOOD COUNT 4.61 10^6/uL (4.00-5.40); WHITE BLOOD COUNT 9.5 10^3/uL (4.0-10.0)
[2021-06-17] MEDS ORDERED: PROHANCE 279.3MG/ML 15ML VIAL As Ordered ONE (19:10)
[2021-06-17 19:13] LABS: ERYTHROCYTE SEDIMENTATION RATE 7 mm/hr (0-30)
--- NOTE | 2021-06-17 21:18 | REPVR ---
PROCEDURE INFORMATION: Exam: MR Orbit Without and With Contrast Exam date and time: 06/17/2021 7:28 PM Age: 61 years old Clinical indication: Pain; Visual changes or disturbances; Double vision (diplopra); Headache; Type not specified; Additional info: Frontal headache; Binocular diplopia; Horizontal nystagmus TECHNIQUE: Imaging protocol: MR Orbit was performed without and with contrast. Contrast material: PROHANCE; Contrast volume: 14 ml; Contrast route: INTRAVENOUS (IV); COMPARISON: MRI-Brain without Contrast 04/15/2021 12:08 PM FINDINGS: Orbital cavity: Orbits are normal. Globes are unremarkable. Paranasal sinuses: Unremarkable. No air-fluid levels. Brain: Multiple foci of T2 lengthening are demonstrated in the subcortical, periventricular and centrum semiovale white matter consistent with age-related small vessel gliosis. Soft tissues: Unremarkable. Other findings: There is downward displacement of the pituitary gland secondary to a defect in the diaphragmatic sella consistent with the empty sella syndrome. IMPRESSION: 1. Multiple foci of T2 lengthening are demonstrated in the subcortical, periventricular and centrum semiovale white matter consistent with age-related small vessel gliosis. 2. There is downward displacement of the pituitary gland secondary to a defect in the diaphragmatic sella consistent with the empty sella syndrome. Electronically signed by: Ismael Perkins On 06/17/2021 21:17:44 PM
--- NOTE | 2021-06-17 21:22 | REPVR ---
PROCEDURE INFORMATION: Exam: MR Head Without and With Contrast Exam date and time: 06/17/2021 7:28 PM Age: 61 years old Clinical indication: Pain; Visual disturbance; Headache not specified; Additional info: Frontal headache; Binocular diplopia; Horizontal nystagmus TECHNIQUE: Imaging protocol: MR of the head without and with intravenous contrast. Contrast material: PROHANCE; Contrast volume: 14 ml; Contrast route: INTRAVENOUS (IV); COMPARISON: MRI-Brain without Contrast 04/15/2021 12:08 PM FINDINGS: Brain: Multiple foci of T2 lengthening are demonstrated in the subcortical, periventricular and centrum semiovale white matter consistent with age-related small vessel gliosis. Cerebral ventricles: Normal. No ventriculomegaly. Pituitary gland and sella: There is downward displacement of the pituitary gland secondary to a defect in the diaphragmatic sella consistent with the empty sella syndrome. Bones/joints: Unremarkable. Paranasal sinuses: Normal as visualized. No acute sinusitis. Mastoid air cells: Normal as visualized. No mastoid effusion. Orbital cavity: Unremarkable. Soft tissues: Unremarkable. IMPRESSION: 1. There is downward displacement of the pituitary gland secondary to a defect in the diaphragmatic sella consistent with the empty sella syndrome. 2. Multiple foci of T2 lengthening are demonstrated in the subcortical, periventricular and centrum semiovale white matter consistent with age-related small vessel gliosis. Clinical correlation to exclude demyelinating disease considering history is suggested. 3. No acute findings Electronically signed by: Ismael Perkins On 06/17/2021 21:22:29 PM
[2021-06-17 21:26] VITALS: BP 175/79
--- NOTE | 2021-06-17 21:26 | REPVR ---
PROCEDURE INFORMATION: Exam: MRA Head Without Contrast; Arteriography Exam date and time: 06/17/2021 7:28 PM Age: 61 years old Clinical indication: Pain; Headache and visual disturbance; Diplopia; Additional info: Frontal headache; Binocular diplopia; Horizontal nystagmus TECHNIQUE: Imaging protocol: Magnetic resonance angiography head without contrast. Exam focused on the arteries. COMPARISON: MRA BRAIN W/O CONTRAST 04/15/2021 12:08 PM FINDINGS: ANTERIOR CIRCULATION: Right internal carotid artery: Intracranial segment is patent with no significant stenosis. No aneurysm. Right middle cerebral artery: No occlusion or significant stenosis. No aneurysm. Right anterior cerebral artery: No occlusion or significant stenosis. No aneurysm. Left internal carotid artery: Intracranial segment is patent with no significant stenosis. No aneurysm. Left middle cerebral artery: No occlusion or significant stenosis. No aneurysm. Left anterior cerebral artery: No occlusion or significant stenosis. No aneurysm. POSTERIOR CIRCULATION: Right vertebral artery: No occlusion or significant stenosis. No aneurysm. Left vertebral artery: No occlusion or significant stenosis. No aneurysm. Basilar artery: No occlusion or significant stenosis. No aneurysm. Right posterior cerebral artery: No occlusion or significant stenosis. No aneurysm. Left posterior cerebral artery: No occlusion or significant stenosis. No aneurysm. IMPRESSION: No stenosis or occlusion. Electronically signed by: Ismael Perkins On 06/17/2021 21:26:11 PM
--- NOTE | 2021-06-18 07:37 | ED PDOC ---
Post-Departure Follow-Up mri brain and mri orbit/face/neck faxed to [facility] cheek and dr montes for f u Nancy Rubio MD Jun 18, 2021 07:37
== END 2021-06-17 22:27 | disposition home or self-care (01) ==
LOC: M ED 16:44
DX: R51.9 Headache, unspecified (principal); H53.2 Diplopia; E23.6 Other disorders of pituitary gland; I10 Essential (primary) hypertension; J44.9 Chronic obstructive pulmonary disease, unspecified; E78.5 Hyperlipidemia, unspecified; Z86.73 Personal history of transient ischemic attack (TIA), and cerebral infarction without residual deficits; Z79.899 Other long term (current) drug therapy; Z79.82 Long term (current) use of aspirin; Z88.1 Allergy status to other antibiotic agents; Z88.8 Allergy status to other drugs, medicaments and biological substances; Z87.891 Personal history of nicotine dependence
CPT/HCPCS: 36415; 70543; 70544; 70553; 80047; 85025; 85652; 86140; 99284; A9576

== ENCOUNTER → 2021-06-26 | Outpatient (CLI) | payer BC ==
[~2021-06-26] MED LIST changes: -CITA40TA4 PO; +CITA40TA7 PO; +TIZA10TA; -TIZA4TAB4
== END ==
LOC: M LAB 16:16
PROVIDERS: ATTEND Psychiatry & Neurology Neurology
DX: G70.00 Myasthenia gravis without (acute) exacerbation (principal)

== ENCOUNTER → 2021-07-07 | Outpatient (REF) | LOC: M LABSMTC 13:16 | PROVIDERS: ATTEND Pediatrics | DX: Z20.822 Contact with and (suspected) exposure to COVID-19 (principal) ==

== ENCOUNTER → 2021-08-04 | Outpatient (CLI) | payer BC ==
[2021-08-04 16:57] LABS: FREE T4 1.06 NG/DL (0.76-1.46); THYROID STIMULATING HORMONE 4.12 uIU/ML (0.358-3.740)
== END ==
LOC: M LAB 15:38
PROVIDERS: ATTEND Internal Medicine Gastroenterology
DX: R19.7 Diarrhea, unspecified (principal)

== ENCOUNTER → 2021-08-04 | Outpatient (CLI) | payer BC ==
[2021-08-04 16:22] LABS: HEMATOCRIT 39.8 % (36.0-47.0); HEMOGLOBIN 13.3 g/dl (12.0-15.5); MEAN CORPUSCULAR HEMOGLOBIN 30.5 pg (27.0-33.0); MEAN CORPUSCULAR HGB CONC 33.4 g/dl (32.0-36.5); MEAN CORPUSCULAR VOLUME 91.3 fl (80.0-96.0); PLATELET COUNT, AUTOMATED 266 10^3/uL (150-450); RED BLOOD COUNT 4.36 10^6/uL (4.00-5.40); WHITE BLOOD COUNT 7.3 10^3/uL (4.0-10.0)
[2021-08-04 16:55] LABS: ALBUMIN 3.8 GM/DL (3.2-5.2); ALT/SGPT 33 U/L (12-78); BILIRUBIN,TOTAL 0.2 MG/DL (0.2-1.0); BLOOD UREA NITROGEN 16 MG/DL (7-18); CALCIUM LEVEL 8.9 MG/DL (8.5-10.1); CARBON DIOXIDE LEVEL 27 MEQ/L (21-32); CHLORIDE LEVEL 105 MEQ/L (98-107); CHOLESTEROL LEVEL 166 MG/DL (<200); CHOLESTEROL RISK RATIO 3.074 (<5); CREATININE FOR GFR 0.98 MG/DL (0.55-1.30); FERRITIN 40 NG/ML (8-252); GLOMERULAR FILTRATION RATE > 60.0 (>51); GLUCOSE, FASTING 76 MG/DL (70-100); HDL CHOLESTEROL 54 MG/DL (>40); IRON (FE) 67 UG/DL (50-170); LDL CHOLESTEROL 77 MG/DL (<100); NON-HDL-C 112 MG/DL; PERCENT SATURATION 21.3 % (13.2-45.0); POTASSIUM SERUM 4.2 MEQ/L (3.5-5.1); SODIUM LEVEL 139 MEQ/L (136-145); TOTAL 25(OH) VITAMIN D 16.2 NG/ML (30.0-100.0); TOTAL IRON BINDING CAPACITY 315 UG/DL (250-450); TOTAL PROTEIN 6.5 GM/DL (6.4-8.2); TRIGLYCERIDES LEVEL 174 MG/DL (<150)
== END ==
LOC: M LAB 15:43
PROVIDERS: ATTEND Nurse Practitioner Adult Health
DX: E74.39 Other disorders of intestinal carbohydrate absorption (principal); I10 Essential (primary) hypertension; Z13.21 Encounter for screening for nutritional disorder; E78.00 Pure hypercholesterolemia, unspecified; Z13.29 Encounter for screening for other suspected endocrine disorder

== ENCOUNTER → 2021-08-06 | Outpatient (REF) | payer BC | LOC: M LAB REF 09:11 | PROVIDERS: ATTEND Internal Medicine Gastroenterology | DX: R19.7 Diarrhea, unspecified (principal) ==

== ENCOUNTER → 2021-08-13 | Outpatient (CLI) | payer BC | LOC: M LABSMTC 10:20 | PROVIDERS: ATTEND Anesthesiology | DX: Z01.818 Encounter for other preprocedural examination (principal); Z11.52 Encounter for screening for COVID-19 ==

== ENCOUNTER 2021-08-18 08:11 | Day surgery (SDC) | payer BC ==
[~2021-08-18] VITALS: Ht 147.3 cm; Wt 74.8 kg
[~2021-08-18 08:11] MED LIST changes: +LIDOCAINE 2% 100MG/5ML SDV (FOR ANES.) As Ordered ONE; +NS 1,000 ML IV ONE; +propofoL 200 MG/20 ML VIAL As Ordered ONE
[2021-08-18 10:25] VITALS: BP 147/75
== END 2021-08-18 10:26 | disposition home or self-care (01) ==
LOC: M OPP 08:11
PROVIDERS: ATTEND Internal Medicine Gastroenterology
DX: D12.5 Benign neoplasm of sigmoid colon (principal); K57.30 Diverticulosis of large intestine without perforation or abscess without bleeding; K64.8 Other hemorrhoids; K52.831 Collagenous colitis; Z80.0 Family history of malignant neoplasm of digestive organs; Z80.3 Family history of malignant neoplasm of breast; Z79.82 Long term (current) use of aspirin; Z79.899 Other long term (current) drug therapy; Z88.1 Allergy status to other antibiotic agents; Z88.8 Allergy status to other drugs, medicaments and biological substances; Z86.73 Personal history of transient ischemic attack (TIA), and cerebral infarction without residual deficits; Z87.19 Personal history of other diseases of the digestive system

== ENCOUNTER 2022-01-11 18:36 | Emergency (ER) | payer BC ==
[~2022-01-11] VITALS: Ht 147.3 cm; Wt 78.0 kg
[~2022-01-11 18:36] MED LIST changes: -LIDOCAINE 2% 100MG/5ML SDV (FOR ANES.) As Ordered ONE; -NS 1,000 ML IV ONE; -propofoL 200 MG/20 ML VIAL As Ordered ONE
[2022-01-11 18:37] VITALS: BP 173/81
[2022-01-11 22:00] LABS: BASO % 0.4 % (0.0-1.0); EOS # 0.1 10^3/uL (0.0-0.5); EOS % 0.9 % (0.0-3.0); HEMATOCRIT 40.9 % (36.0-47.0); HEMOGLOBIN 13.8 g/dl (12.0-15.5); LYMPH # 3.7 10^3/uL (1.5-5.0); LYMPH % 35.4 % (24.0-44.0); MEAN CORPUSCULAR HEMOGLOBIN 30.1 pg (27.0-33.0); MEAN CORPUSCULAR HGB CONC 33.7 g/dl (32.0-36.5); MEAN CORPUSCULAR VOLUME 89.1 fl (80.0-96.0); MONO # 1.1 10^3/uL (0.0-0.8); MONO % 10.5 % (2.0-8.0); NEUTROPHILS # 5.4 10^3/uL (1.5-8.5); NEUTROPHILS % 51.7 % (36.0-66.0); PLATELET COUNT, AUTOMATED 347 10^3/uL (150-450); RED BLOOD COUNT 4.59 10^6/uL (4.00-5.40); WHITE BLOOD COUNT 10.3 10^3/uL (4.0-10.0)
[2022-01-11] MEDS ORDERED: ISOVUE-370 76% 100ML VIAL As Ordered ONE (22:13)
[2022-01-11 22:16] LABS: INR 0.87; PROTHROMBIN TIME 12.2 SECONDS (12.7-14.5)
[2022-01-11 22:45] LABS: ALBUMIN 3.7 GM/DL (3.2-5.2); ALT/SGPT 44 IU/L (0-32); BILIRUBIN,DIRECT < 0.1 MG/DL (0.0-0.2); BILIRUBIN,TOTAL 0.2 MG/DL (0.2-1.0); NT-PRO BNP 178 PG/ML (<125); TOTAL PROTEIN 6.9 GM/DL (6.4-8.2)
== END 2022-01-11 23:53 | disposition home or self-care (01) ==
LOC: M ED 18:36
DX: U07.1 COVID-19 (principal); R06.02 Shortness of breath; I10 Essential (primary) hypertension; J44.9 Chronic obstructive pulmonary disease, unspecified; E78.5 Hyperlipidemia, unspecified; F32.A Depression, unspecified; F41.9 Anxiety disorder, unspecified; K21.9 Gastro-esophageal reflux disease without esophagitis; Z86.73 Personal history of transient ischemic attack (TIA), and cerebral infarction without residual deficits; Z87.09 Personal history of other diseases of the respiratory system; Z88.1 Allergy status to other antibiotic agents; Z88.8 Allergy status to other drugs, medicaments and biological substances; Z79.899 Other long term (current) drug therapy; Z79.82 Long term (current) use of aspirin
CPT/HCPCS: 36415; 71275; 80047; 80076; 83880; 85025; 85610; 93005; 99284; Q9967

== ENCOUNTER → 2022-02-09 | Outpatient (CLI) | payer BC ==
[~2022-02-09] MED LIST changes: -LABE100T4 PO; +LABE100T6 PO
[2022-02-09 12:08] LABS: ALBUMIN 3.9 GM/DL (3.2-5.2); ALT/SGPT 55 U/L (12-78); BILIRUBIN,TOTAL 0.2 MG/DL (0.2-1.0); BLOOD UREA NITROGEN 17 MG/DL (7-18); CALCIUM LEVEL 9.7 MG/DL (8.5-10.1); CARBON DIOXIDE LEVEL 28 MEQ/L (21-32); CHLORIDE LEVEL 102 MEQ/L (98-107); GLOMERULAR FILTRATION RATE > 60.0 (>51); GLUCOSE, FASTING 72 MG/DL (70-100); POTASSIUM SERUM 3.9 MEQ/L (3.5-5.1); SODIUM LEVEL 136 MEQ/L (136-145); TOTAL PROTEIN 7.2 GM/DL (6.4-8.2)
== END ==
LOC: M PLALAB 07:49
PROVIDERS: ATTEND Nurse Practitioner Adult Health
DX: R30.0 Dysuria (principal); I10 Essential (primary) hypertension

== ENCOUNTER 2022-02-16 08:12 | Emergency (ER) | payer BC ==
[~2022-02-16] VITALS: Ht 147.3 cm; Wt 77.7 kg
[2022-02-16] MEDS ORDERED: METH4PACK (08:20)
[2022-02-16] MEDS ORDERED: AMIT10TA7 (08:20)
[2022-02-16 09:09] LABS: HEMATOCRIT 40.2 % (36.0-47.0); HEMOGLOBIN 13.2 g/dl (12.0-15.5); MEAN CORPUSCULAR HEMOGLOBIN 29.8 pg (27.0-33.0); MEAN CORPUSCULAR HGB CONC 32.8 g/dl (32.0-36.5); MEAN CORPUSCULAR VOLUME 90.7 fl (80.0-96.0); PLATELET COUNT, AUTOMATED 411 10^3/uL (150-450); RED BLOOD COUNT 4.43 10^6/uL (4.00-5.40); WHITE BLOOD COUNT 11.2 10^3/uL (4.0-10.0)
[2022-02-16 10:03] LABS: CALCIUM LEVEL 9.1 MG/DL (8.5-10.1); CREATININE FOR GFR 1.12 MG/DL (0.55-1.30); MAGNESIUM LEVEL 2.2 MG/DL (1.8-2.4); THYROID STIMULATING HORMONE 1.27 uIU/ML (0.358-3.740)
[2022-02-16 11:15] VITALS: BP 137/64
== END 2022-02-16 11:18 | disposition home or self-care (01) ==
LOC: M ED 08:12
DX: R07.9 Chest pain, unspecified (principal); F41.9 Anxiety disorder, unspecified; I10 Essential (primary) hypertension; J44.9 Chronic obstructive pulmonary disease, unspecified; E78.5 Hyperlipidemia, unspecified; F32.A Depression, unspecified; Z79.899 Other long term (current) drug therapy; Z79.82 Long term (current) use of aspirin; Z88.1 Allergy status to other antibiotic agents; Z88.8 Allergy status to other drugs, medicaments and biological substances; Z87.891 Personal history of nicotine dependence

== ENCOUNTER → 2022-03-31 | Outpatient (CLI) | payer BC ==
[~2022-03-31] MED LIST changes: +AMIT10TA7; -BENI40TA26 PO; +METH4PACK; +OLME40TA56 PO
[2022-03-31 14:31] LABS: HEMOGLOBIN A1c 6.2 %
[2022-03-31 15:08] LABS: ALBUMIN 4.1 GM/DL (3.2-5.2); BILIRUBIN,TOTAL 0.3 MG/DL (0.2-1.0); CALCIUM LEVEL 9.5 MG/DL (8.8-10.2); CHOLESTEROL RISK RATIO 3.35 (<5); CREATININE FOR GFR 1.1 MG/DL (0.55-1.30); GLOMERULAR FILTRATION RATE 53.9 (>45); POTASSIUM SERUM 3.9 MEQ/L (3.5-5.1); THYROID STIMULATING HORMONE 1.12 uIU/ML (0.358-3.740); TOTAL PROTEIN 7.3 GM/DL (6.4-8.2)
[2022-03-31 15:29] LABS: TOTAL 25(OH) VITAMIN D 31.7 NG/ML (30.0-100.0)
== END ==
LOC: M PLALAB 09:43
PROVIDERS: ATTEND Nurse Practitioner Adult Health
DX: E74.39 Other disorders of intestinal carbohydrate absorption (principal); J02.9 Acute pharyngitis, unspecified; R50.9 Fever, unspecified; I10 Essential (primary) hypertension; Z13.29 Encounter for screening for other suspected endocrine disorder

== ENCOUNTER → 2022-10-25 | Outpatient (REF) ==
[~2022-10-25] MED LIST changes: +MONT-5 PO; -SING10TA32 PO
== END ==
LOC: M EMP 10:01
PROVIDERS: ATTEND Family Medicine
DX: Z11.52 Encounter for screening for COVID-19 (principal)

== ENCOUNTER → 2022-11-24 | Outpatient (CLI) | payer BC | LOC: M PLAIMG 16:38 | PROVIDERS: ATTEND Physician Assistant | DX: M25.551 Pain in right hip (principal); M54.31 Sciatica, right side; M16.11 Unilateral primary osteoarthritis, right hip ==

== ENCOUNTER → 2023-01-11 | Outpatient (CLI) | payer BC | LOC: M WUC 11:22 | PROVIDERS: ATTEND Nurse Practitioner Family | DX: M19.012 Primary osteoarthritis, left shoulder (principal) ==

== ENCOUNTER → 2023-04-04 | Outpatient (CLI) | payer BC | LOC: M SOG 08:29 | PROVIDERS: ATTEND Orthopaedic Surgery | DX: M46.96 Unspecified inflammatory spondylopathy, lumbar region (principal); M47.896 Other spondylosis, lumbar region ==

== ENCOUNTER → 2023-05-09 | Outpatient (REF) ==
[2023-05-09 10:46] LABS: RSV AMPLIFICATION NEGATIVE (NEGATIVE)
== END ==
LOC: M EMP 09:20
PROVIDERS: ATTEND Family Medicine
DX: Z11.52 Encounter for screening for COVID-19 (principal)

== ENCOUNTER → 2023-07-12 | Outpatient (REF) | LOC: M EMP 08:45 | PROVIDERS: ATTEND Family Medicine | DX: Z53.9 Procedure and treatment not carried out, unspecified reason (principal) ==

== ENCOUNTER → 2023-09-05 | Outpatient (CLI) | payer BC | LOC: M WHC 16:47 | PROVIDERS: ATTEND Nurse Practitioner Adult Health | DX: Z12.31 Encounter for screening mammogram for malignant neoplasm of breast (principal) ==

== ENCOUNTER → 2023-09-28 | Outpatient (CLI) | payer BC | LOC: M RAD 15:52 | PROVIDERS: ATTEND Nurse Practitioner Adult Health | DX: Z12.2 Encounter for screening for malignant neoplasm of respiratory organs (principal); Z87.891 Personal history of nicotine dependence ==

== ENCOUNTER → 2024-01-27 | Outpatient (REF) ==
[~2024-01-27] MED LIST changes: +ALFU10TA23 PO; -ALFU10TA3 PO
== END ==
LOC: M EMP 09:12
PROVIDERS: ATTEND Family Medicine
DX: Z01.89 Encounter for other specified special examinations (principal)

== ENCOUNTER → 2024-02-08 | Outpatient (REF) | payer BC | LOC: M SFHCDERM 17:29 | PROVIDERS: ATTEND Physician Assistant | DX: D22.39 Melanocytic nevi of other parts of face (principal) ==

== ENCOUNTER → 2024-05-08 | Outpatient (CLI) | payer BC ==
[~2024-05-08] MED LIST changes: +GABA-1172; -GABA-282
[2024-05-08 18:43] LABS: ALBUMIN 3.8 G/DL (3.2-5.2); ALKALINE PHOSPHATASE 91 U/L (35-104); ALT/SGPT 13 U/L (7.0-40); AST/SGOT < 8 U/L (<34); BILIRUBIN,TOTAL 0.3 MG/DL (0.3-1.2); BLOOD UREA NITROGEN 13 MG/DL (9-23); CALCIUM LEVEL 9.2 MG/DL (8.3-10.6); CARBON DIOXIDE LEVEL 31 MMOL/L (20-31); CHLORIDE LEVEL 104 MMOL/L (98-107); CHOLESTEROL LEVEL 216 MG/DL (<200); CHOLESTEROL RISK RATIO 4.74 (<5); CREATININE FOR GFR 0.93 MG/DL (0.55-1.30); GLOMERULAR FILTRATION RATE > 60.0 (>45); GLUCOSE, FASTING 84 MG/DL (74-106); HDL CHOLESTEROL 45.5 MG/DL (>40); LDL CHOLESTEROL 144.9 MG/DL (<100); NON-HDL-C 170.5 MG/DL; POTASSIUM SERUM 4.5 MMOL/L (3.5-5.1); SODIUM LEVEL 139 MMOL/L (136-145); THYROID STIMULATING HORMONE 2.497 uIU/ML (0.55-4.78); TRIGLYCERIDES LEVEL 128 MG/DL (<150)
== END ==
LOC: M PLALAB 15:57
PROVIDERS: ATTEND Nurse Practitioner Adult Health
DX: I10 Essential (primary) hypertension (principal); Z13.21 Encounter for screening for nutritional disorder; Z13.29 Encounter for screening for other suspected endocrine disorder; E74.39 Other disorders of intestinal carbohydrate absorption; E78.2 Mixed hyperlipidemia

== ENCOUNTER → 2024-05-10 | Outpatient (CLI) | payer BC ==
[~2024-05-10] MED LIST changes: +ERGO500029; +ISOVUE-370 76% 100ML VIAL As Ordered ONE; +VITA400T15 PO
== END ==
LOC: M RAD 14:48
PROVIDERS: ATTEND Physician Assistant Medical
DX: K57.30 Diverticulosis of large intestine without perforation or abscess without bleeding (principal); R10.2 Pelvic and perineal pain
CPT/HCPCS: 74177; Q9967

== ENCOUNTER → 2024-05-11 | Outpatient (CLI) | payer BC ==
[~2024-05-11] MED LIST changes: -ISOVUE-370 76% 100ML VIAL As Ordered ONE
[2024-05-11 15:41] LABS: APPEARANCE, URINE HAZY (CLEAR); BACTERIA, URINE AUTO NEGATIVE (NEGATIVE); BILIRUBIN, URINE AUTO NEGATIVE (NEGATIVE); BLOOD, URINE BLOOD NEGATIVE (NEGATIVE); COLOR, URINE AMBER (YELLOW); GLUCOSE, URINE (UA) AUTO NEGATIVE (NEGATIVE); KETONE, URINE AUTO TRACE mg/dL (NEGATIVE); LEUKOCYTE ESTERASE, URINE AUTO TRACE (NEGATIVE); MUCUS, URINE SMALL (NEGATIVE); NITRITE, URINE AUTO NEGATIVE (NEGATIVE); PROTEIN, URINE AUTO 1+ mg/dL (NEGATIVE); RBC, URINE AUTO 2 /HPF (0-3); SPECIFIC GRAVITY URINE AUTO 1.036 (1.002-1.035); SQUAMOUS EPITHELIAL CELL UR AU 1 /HPF (0-6); WBC, URINE AUTO 2 /HPF (0-3)
== END ==
LOC: M RAD 13:00
PROVIDERS: ATTEND Physician Assistant Medical
DX: R10.2 Pelvic and perineal pain (principal)

== ENCOUNTER 2024-05-12 16:18 | Emergency (ER) | payer BC ==
[~2024-05-12] VITALS: Ht 147.3 cm; Wt 78.6 kg
[~2024-05-12 16:18] MED LIST changes: -ERGO500029; -VITA400T15 PO
[2024-05-12] MEDS ORDERED: ERGO500029 (17:16)
[2024-05-12] MEDS ORDERED: TRAZ-252 PO (17:17)
[2024-05-12] MEDS ORDERED: VITA400T15 PO (17:19)
[2024-05-12 18:58] LABS: BASO % 0.6 % (0.0-1.0); EOS # 0.1 10^3/uL (0.0-0.5); EOS % 1.7 % (0.0-3.0); HEMOGLOBIN 14.7 g/dl (12.0-15.5); LYMPH # 1.9 10^3/uL (1.5-5.0); LYMPH % 26.6 % (24.0-44.0); MEAN CORPUSCULAR HEMOGLOBIN 30.3 pg (27.0-33.0); MEAN CORPUSCULAR HGB CONC 34.2 g/dl (32.0-36.5); MEAN CORPUSCULAR VOLUME 88.7 fl (80.0-96.0); MONO # 0.6 10^3/uL (0.0-0.8); MONO % 8.7 % (2.0-8.0); NEUTROPHILS # 4.4 10^3/uL (1.5-8.5); NEUTROPHILS % 62.1 % (36.0-66.0); PLATELET COUNT, AUTOMATED 310 10^3/uL (150-450); RED BLOOD COUNT 4.85 10^6/uL (4.00-5.40)
[2024-05-12 19:23] LABS: LIPASE 321 U/L (12-53)
[2024-05-12 19:25] LABS: ALBUMIN 4.1 G/DL (3.2-5.2); ALKALINE PHOSPHATASE 92 U/L (35-104); ALT/SGPT 18 U/L (7.0-40); AST/SGOT 11 U/L (<34); BILIRUBIN,DIRECT < 0.1 MG/DL (<0.4); BILIRUBIN,TOTAL 0.3 MG/DL (0.3-1.2); BLOOD UREA NITROGEN 12 MG/DL (9-23); CALCIUM LEVEL 9.8 MG/DL (8.3-10.6); CARBON DIOXIDE LEVEL 26 MMOL/L (20-31); CHLORIDE LEVEL 106 MMOL/L (98-107); CREATININE FOR GFR 0.87 MG/DL (0.55-1.30); GLOMERULAR FILTRATION RATE > 60.0 (>45); GLUCOSE, FASTING 96 MG/DL (74-106); POTASSIUM SERUM 4.3 MMOL/L (3.5-5.1); SODIUM LEVEL 139 MMOL/L (136-145); TOTAL PROTEIN 7.5 G/DL (5.7-8.2)
[2024-05-12] MEDS: FOSFOMYCIN TROMETHAMINE 3 GM POWDER PACKET (MONUROL) PO ONE (20:48)
[2024-05-12 20:51] VITALS: BP 152/69; TEMP 97; O2SAT 97
== END 2024-05-12 21:07 | disposition home or self-care (01) ==
LOC: M ED 16:18
DX: R33.9 Retention of urine, unspecified (principal); J44.9 Chronic obstructive pulmonary disease, unspecified; E78.5 Hyperlipidemia, unspecified; M54.9 Dorsalgia, unspecified; K57.92 Diverticulitis of intestine, part unspecified, without perforation or abscess without bleeding; Z86.73 Personal history of transient ischemic attack (TIA), and cerebral infarction without residual deficits; Z79.899 Other long term (current) drug therapy; Z88.1 Allergy status to other antibiotic agents; Z88.8 Allergy status to other drugs, medicaments and biological substances

== ENCOUNTER → 2024-07-11 | Outpatient (REF) ==
[~2024-07-11] MED LIST changes: +ERGO500029; +VITA400T15 PO
== END ==
LOC: M EMP 11:11
PROVIDERS: ATTEND Family Medicine
DX: Z01.89 Encounter for other specified special examinations (principal)

== ENCOUNTER → 2024-07-12 | Outpatient (REF) | payer BC | LOC: M SFHCPLAZ 12:36 | PROVIDERS: ATTEND Nurse Practitioner Adult Health | DX: R09.81 Nasal congestion (principal) ==

== ENCOUNTER → 2024-08-16 | Outpatient (CLI) | payer BC | LOC: M PLAIMG 15:33 | PROVIDERS: ATTEND Nurse Practitioner Adult Health | DX: R09.89 Other specified symptoms and signs involving the circulatory and respiratory systems (principal) ==

== ENCOUNTER → 2024-08-16 | Outpatient (REF) | payer BC | LOC: M SMT 17:15 | PROVIDERS: ATTEND Nurse Practitioner Adult Health | DX: R09.81 Nasal congestion (principal) ==

== ENCOUNTER → 2025-04-19 | Outpatient (CLI) | payer BC ==
[~2025-04-19] MED LIST changes: +AMIT10TA11; -AMIT10TA7; +HYDR12.510 PO; -HYDR12CA PO; -IBUP-1022 PO; +IBUP600T42 PO
[2025-04-19 17:08] LABS: PLATELET COUNT, AUTOMATED 301 10^3/uL (150-450)
[2025-04-19 17:32] LABS: ALT/SGPT 17.0 U/L (7.0-40); AST/SGOT 16.0 U/L (<34); CALCIUM LEVEL 8.6 MG/DL (8.3-10.6); CARBON DIOXIDE LEVEL 29.0 MMOL/L (20-31); CHLORIDE LEVEL 101.0 MMOL/L (98-107); CHOLESTEROL LEVEL 209.0 MG/DL (<200); CHOLESTEROL RISK RATIO 4.61 (<5); CREATININE FOR GFR 1.05 MG/DL (0.55-1.30); GLOMERULAR FILTRATION RATE 59.7 (>45); LDL CHOLESTEROL 135.3 MG/DL (<100); NON-HDL-C 163.7 MG/DL; POTASSIUM SERUM 3.9 MMOL/L (3.5-5.1); SODIUM LEVEL 139.0 MMOL/L (136-145); TRIGLYCERIDES LEVEL 142.0 MG/DL (<150)
[2025-04-19 17:35] LABS: TOTAL 25(OH) VITAMIN D 61.9 NG/ML (20.0-100.0)
[2025-04-19 18:23] LABS: ESTIMATED AVERAGE GLUCOSE 120.0 MG/DL (60-110)
== END ==
LOC: M RAD 16:42
PROVIDERS: ATTEND Nurse Practitioner Adult Health
DX: Z12.2 Encounter for screening for malignant neoplasm of respiratory organs (principal); Z87.891 Personal history of nicotine dependence; I10 Essential (primary) hypertension; E78.2 Mixed hyperlipidemia; E74.39 Other disorders of intestinal carbohydrate absorption; E55.9 Vitamin D deficiency, unspecified; K76.0 Fatty (change of) liver, not elsewhere classified